=== PATIENT | female | born 1945 | race Caucasian/White ===

== ENCOUNTER 2016-11-07 00:59 | Emergency (ER) | payer MEDICARE ==
--- NOTE | 2016-11-07 01:25 | ED.PDOC ---
History of Present Illness - General Chief Complaint: Neuro Symptoms/Deficits Stated Complaint: weakness left upper extremity and both lower extremity Time Seen by Provider: 11/07/16 01:20 Source: patient, RN notes reviewed, Vital Signs reviewed, EMS notes reviewed Exam Limitations: no limitations - History of Present Illness Initial Comments: Patient stated that both upper extremities felt numb and weak left more than the right as well as both lower extremities called up her HHN and advised to come to er Timing/Duration: 24 hours Severity: moderate Improving Factors: nothing Worsening Factors: nothing Associated Symptoms: numbness in legs/feet, tingling in legs/feet, trouble walking Allergies/Adverse Reactions: Allergies Iodine Allergy (Verified 06/07/16 19:07) Levofloxacin [From Levaquin] Allergy (Verified 06/07/16 19:07) Sulfa Drugs Allergy (Verified 06/07/16 19:07) plastic tape Allergy (Uncoded 01/22/16 23:02) Home Medications: Ambulatory Orders Albuterol Inhaler [Ventolin Hfa Inhaler] 2 puff INH Q8H PRN #1 inh 11/10/15 Allopurinol [Zyloprim] 300 mg PO DAILY 11/10/15 Cyclobenzaprine HCl 10 mg PO DAILY 11/10/15 DULoxetine HCL [Cymbalta] 30 mg PO DAILY 11/10/15 Furosemide [Lasix Tab] 40 mg PO DAILY 11/10/15 Gabapentin 300 mg PO TID 11/10/15 Glimepiride 4 mg PO DAILY 11/10/15 Isosorbide Mononitrate [Isosorbide Mononitrate ER] 60 mg PO DAILY 11/10/15 Meclizine HCl 25 mg PO BID 11/10/15 Meloxicam [Mobic] 15 mg PO DAILY 11/10/15 Memantine HCl [Namenda Xr] 28 mg PO DAILY 11/10/15 Metoclopramide HCl [Reglan] 5 mg PO AC 11/10/15 Metoprolol Tartrate 50 mg PO DAILY 11/10/15 Potassium Chloride [Potassium Chloride ER] 10 meq PO DAILY 11/10/15 Promethazine Tab [Phenergan Tablet] 25 mg PO Q6HRS PRN 11/10/15 Tramadol HCl 50 mg PO Q6HRS PRN 11/10/15 Vitamin D2 50,000 unit PO WKLY 11/10/15 Review of Systems - Review of Systems Constitutional: States: no symptoms reported EENTM: States: blurred vision - history of thinning cornea bilateral but vision better Past Medical History (General) - Patient Medical History Hx Seizures: No Hx Stroke: Yes Hx Dementia: No Hx Asthma: No Hx of COPD: No - has sleep Apnea Hx Cardiac Disorders: Yes Hx Congestive Heart Failure: Yes Hx Pacemaker: No Hx Hypertension: Yes Hx Thyroid Disease: No Hx Diabetes: Yes Hx Gastroesophageal Reflux: No Hx Renal Disease: No Hx Cancer: No Hx of HIV: No Hx Hepatitis C: No Hx MRSA: No Hx Other PMH: No - fibromyalgia - Vaccination History Hx Tetanus, Diphtheria Vaccination: No Hx Influenza Vaccination: No Hx Pneumococcal Vaccination: Yes - Social History Hx Tobacco Use: No Hx Chewing Tobacco Use: No Hx Alcohol Use: No Hx Substance Use: No Hx Substance Use Treatment: No Hx Depression: No Hx Physical Abuse: No Hx Emotional Abuse: No - Activities of Daily Living Patient Lives Alone: Yes - at home Grooming Ability: Independent - Female History Patient is a Female of Child Bearing Age (10 -59 yrs old): No Patient : No Family Medical History - Family History Mother Family History: No Known Living Status: Hx Family Asthma: No Hx Family Hypertension: Yes Hx Family Stroke: Yes Hx Cardiac Disease: Yes Hx Family Cancer: Yes - breast,kidney Physical Exam - Physical Exam General Appearance: Alert, Anxious, No apparent distress Eye Exam: bilateral normal - with glasses ENT Exam: normal ENT inspection, hearing grossly normal, TMs normal Neck: non-tender, full range of motion, supple Respiratory: chest non-tender, lungs clear, normal breath sounds, no respiratory distress Cardiovascular/Chest: normal peripheral pulses, regular rate, rhythm, no edema, no gallop, no JVD, no murmur Peripheral Pulses: radial,right: 2+, radial,left: 2+ Back Exam: normal inspection, no CVA tenderness 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, 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 Exam: normal hearing, normal speech, PERRL, other - GCS-15 Coordination/Gait: ABN nose to finger (L) Motor/Sensory: no motor deficit, no sensory deficit, no pronator drift, negative Babinski's sign Skin Exam: normal color, warm/dry Progress - Results/Orders Results/Orders: 11/07/16 01:27 URINALYSIS Stat 11/07/16 01:30 EKG STAT 11/07/16 02:00 URINE DRUG SCREEN, 7 ASSAY Stat Laboratory Results WBC 11.5 K/mm3 (4.8-10.8) H 11/07/16 01:40 RBC 5.31 M/mm3 (4.20-5.40) 11/07/16 01:40 Hgb 15.4 gm/dL (12.0-16.0) 11/07/16 01:40 Hct 47.1 % (36.0-47.0) H 11/07/16 01:40 MCV 88.6 fl (81.0-99.0) 11/07/16 01:40 MCH 29.0 pg (27.0-31.0) 11/07/16 01:40 MCHC 32.8 g/dL (33.0-37.0) L 11/07/16 01:40 RDW 14.0 % (11.5-14.5) 11/07/16 01:40 Plt Count 151 K/mm3 (130-400) 11/07/16 01:40 MPV 9.0 fl (7.40-10.4) 11/07/16 01:40 Absolute Neuts (auto) 7.50 K/uL (1.8-6.8) H 11/07/16 01:40 Absolute Lymphs (auto) 2.70 K/uL (1.0-3.4) 11/07/16 01:40 Absolute Monos (auto) 0.70 K/uL (0.2-0.8) 11/07/16 01:40 Absolute Eos (auto) 0.40 K/uL (0.0-0.4) 11/07/16 01:40 Absolute Basos (auto) 0.10 K/uL (0.0-0.1) 11/07/16 01:40 Neutrophils % 65.2 % (42.0-78.0) 11/07/16 01:40 Lymphocytes % 23.8 % (20.0-50.0) 11/07/16 01:40 Monocytes % 6.4 % (2.0-9.0) 11/07/16 01:40 Eosinophils % 3.7 % (1.0-5.0) 11/07/16 01:40 Basophils % 0.9 % (0.0-2.0) 11/07/16 01:40 Sodium 136 mmol/L (135-145) 11/07/16 01:40 Potassium 3.7 mmol/L (3.6-5.0) 11/07/16 01:40 Chloride 99 mmol/L (101-111) L 11/07/16 01:40 Carbon Dioxide 27 mmol/L (21-31) 11/07/16 01:40 Anion Gap 13.7 (12-18) 11/07/16 01:40 BUN 18 mg/dL (7-18) 11/07/16 01:40 Creatinine 0.88 mg/dL (0.6-1.3) 11/07/16 01:40 BUN/Creatinine Ratio 20.5 (10-20) H 11/07/16 01:40 Random Glucose 287 mg/dL (70-105) H 11/07/16 01:40 Serum Osmolality 284.3 mOsm/L (275-295) 11/07/16 01:40 Calcium 9.0 mg/dL (8.4-10.2) 11/07/16 01:40 Total Bilirubin 0.7 mg/dL (0.2-1.0) 11/07/16 01:40 AST 41 IU/L (10-42) 11/07/16 01:40 ALT 40 IU/L (10-60) 11/07/16 01:40 Alkaline Phosphatase 95 IU/L (42-121) 11/07/16 01:40 B-Natriuretic Peptide 16.3 pg/ml (0-100) 11/07/16 01:40 Serum Total Protein 7.7 gm/dL (6.4-8.2) 11/07/16 01:40 Albumin 3.8 g/dl (3.2-5.5) 11/07/16 01:40 Globulin 3.9 gm/dL (2.3-3.5) H 11/07/16 01:40 Albumin/Globulin Ratio 1.0 (1.1-1.9) L 11/07/16 01:40 TSH 4.84 uIU/mL (0.34-5.60) 11/07/16 01:40 - EKG/XRAY/CT EKG: nonspecific ST T wave Chg XRAY: chest - stable chest Stroke Information - Onset of Symptoms Symptoms of Stroke: Weakness of limb, Numbness Stroke Onset of Symptoms Date: 11/06/16 Stroke Onset of Symptoms Time: 08:00 - Contraindications t-PA Contraindication: Drug Tx Not Indicated - more than 4 hours Departure - Departure Clinical Impression: CVA, old, cognitive deficits TIA (transient ischemic attack) Qualifiers: Transient cerebral ischemia type: unspecified Qualifier Code: (G45.9) Transient cerebral ischemic attack, unspecified Time of Disposition: 03:33 - D/W neurologist Disposition: Transfer to Hospital Condition: Good Home Medications: Ambulatory Orders Albuterol Inhaler [Ventolin Hfa Inhaler] 2 puff INH Q8H PRN #1 inh 11/10/15 Allopurinol [Zyloprim] 300 mg PO DAILY 11/10/15 Cyclobenzaprine HCl 10 mg PO DAILY 11/10/15 DULoxetine HCL [Cymbalta] 30 mg PO DAILY 11/10/15 Furosemide [Lasix Tab] 40 mg PO DAILY 11/10/15 Gabapentin 300 mg PO TID 11/10/15 Glimepiride 4 mg PO DAILY 11/10/15 Isosorbide Mononitrate [Isosorbide Mononitrate ER] 60 mg PO DAILY 11/10/15 Meclizine HCl 25 mg PO BID 11/10/15 Meloxicam [Mobic] 15 mg PO DAILY 11/10/15 Memantine HCl [Namenda Xr] 28 mg PO DAILY 11/10/15 Metoclopramide HCl [Reglan] 5 mg PO AC 11/10/15 Metoprolol Tartrate 50 mg PO DAILY 11/10/15 Potassium Chloride [Potassium Chloride ER] 10 meq PO DAILY 11/10/15 Promethazine Tab [Phenergan Tablet] 25 mg PO Q6HRS PRN 11/10/15 Tramadol HCl 50 mg PO Q6HRS PRN 11/10/15 Vitamin D2 50,000 unit PO WKLY 11/10/15 Additional Instructions: [facility]
--- NOTE | 2016-11-07 02:18 | CT ---
EXAM DESCRIPTION: CT HEAD WITHOUT IV CONTRAST 11/07/2016 2:08 AM CLINICAL HISTORY: 71 y/o , F, weakness. COMPARISON: CT head without contrast September 25, 2016 TECHNIQUE: Volumetric CT acquisition was performed through the brain. Images in the axial plane were presented for interpretation. Coronal and sagittal reconstruction images were presented for interpretation. FINDINGS: The soft tissue structures of the face and scalp are normal. The globes remain intact. The soft tissues of the orbital fossae are normal. The paranasal sinuses are grossly clear. Limited evaluation of the facial bones demonstrate no gross abnormalities. The calvarium remains intact. There is no evidence of acute intracranial hemorrhage, midline shift, or mass effect. The ventricles are age appropriate in size. The posterior fossa structures are within normal limits. There is a stable old right frontal infarct measuring up to 1.5 cm in diameter. There is a stable old right MRI CT TECH distribution infarct best seen on axial image 17. Specifically, there is no CT evidence of acute infarct, though CT can be insensitive for the detection of acute ischemia. IMPRESSION: 1. No acute intracranial process. 2. Stable old right frontal and right MRI CT TECH distribution infarcts. Electronically signed by: Connie Foote MD 11/07/2016 02:16
--- NOTE | 2016-11-07 02:18 | RAD ---
EXAM DESCRIPTION: XR CHEST 1 VIEW 11/07/2016 2:08 AM CLINICAL HISTORY: 71 y/o , F, weak COMPARISON: Portable AP view of the chest November 10, 2015 FINDINGS: The lungs are clear without focal consolidation or pleural effusion. The heart is normal in size. The mediastinal contours are normal in appearance. The osseous structures are age appropriate. The upper abdomen is grossly normal. IMPRESSION: No acute cardiopulmonary disease (stable appearing chest). Electronically signed by: Connie Foote MD 11/07/2016 02:17
[2016-11-07 03:40] VITALS: TEMP 98.4
[2016-11-07 03:41] VITALS: BP 113/71; O2SAT 95
== END 2016-11-07 04:18 | disposition short-term general hospital (02) ==
LOC: ER 00:59
DX: G45.9 Transient cerebral ischemic attack, unspecified (principal); Z88.2 Allergy status to sulfonamides; Z88.3 Allergy status to other anti-infective agents; Z88.8 Allergy status to other drugs, medicaments and biological substances; Z91.048 Other nonmedicinal substance allergy status; Z79.899 Other long term (current) drug therapy; Z86.73 Personal history of transient ischemic attack (TIA), and cerebral infarction without residual deficits; Z80.3 Family history of malignant neoplasm of breast; Z82.3 Family history of stroke
CPT/HCPCS: 70450; 71010; 80053; 81001; 83880; 84443; 85025; 93005; G0479

== ENCOUNTER → 2017-01-03 | Outpatient (CLI) | payer MEDICARE ==
--- NOTE | 2017-01-03 10:48 | CT ---
EXAM DESCRIPTION: Abdoment/Pelvis w/o Contrast CLINICAL HISTORY: ABD PAIN COMPARISON: None Available TECHNIQUE: CT of the abdomen and Pelvis was performed without IV contrast. FINDINGS: The lung bases are unremarkable. There is no pneumoperitoneum, ascites or adenopathy. No abdominal aortic aneurysm. The gallbladder is surgically absent. There is no gastric wall thickening. There is a poorly defined area of decreased attenuation anteriorly in the liver without adjacent edema or fluid. This may present focal fatty location. The liver is otherwise unremarkable for noncontrast technique. The spleen, pancreas, adrenals and kidneys are unremarkable. No dilated small bowel loops. No bladder wall thickening. The uterus and ovaries are surgically absent. No colonic wall thickening. The appendix is not definitely identified, but there are no secondary signs of appendicitis. There is a tiny fat-containing umbilical hernia without complicating features. No additional hernia or other abdominal wall lesion is identified. No suspicious bone lesion. IMPRESSION: Tiny uncomplicated fat-containing umbilical hernia, but no additional abnormality in the abdomen or pelvis to explain abdominal pain. Small irregular area of decreased attenuation anteriorly in the liver probably representing focal fatty infiltration, doubtful clinical significance. 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
== END | disposition home or self-care (01) ==
LOC: EDSTATUS 08:00 → CT 08:03 → GOCC 08:03 → LAB.O 08:03
PROVIDERS: ATTEND Family Medicine
DX: R10.84 Generalized abdominal pain (principal)

== ENCOUNTER → 2017-03-13 | Outpatient (CLI) | payer MEDICARE | LOC: GMAL 15:01 | PROVIDERS: ATTEND Family Medicine | DX: E03.9 Hypothyroidism, unspecified (principal) ==

== ENCOUNTER → 2017-03-15 | Outpatient (CLI) | payer MEDICARE ==
--- NOTE | 2017-03-15 14:15 | US ---
History: Left bloody nipple discharge. DATE OF SERVICE: 03/15/2017 Services provided: Bilateral full field digital diagnostic mammography. CAD, the images were reviewed with R2 computer aided detection. Directed left breast physical exam. Directed left breast sonography. FINDINGS: Routine views are obtained. True lateral films were also performed and compared with 2015 exam. Scattered glandular parenchymal pattern with minimal nodularity is stable. No dominant mass, architectural distortion or clustered microcalcification. No palpable abnormality is noted on physical exam. No nipple discharge could be elicited on today's evaluation. Sonography of the retroareolar left breast confirms ductal ectasia with no sonographic abnormality. IMPRESSION: Benign exam. No mammographic evidence for malignancy. No sonographic abnormality on the left. Nipple discharge could not be demonstrated on today's evaluation. Recommendation: Routine screening mammography. Should the nipple discharge recur the patient is asked to return for further evaluation. BIRAD CATEGORY: 2 BENIGN Electronically signed by: Dalia Palencia MD 03/15/2017 2:15 PM CDT
== END | disposition home or self-care (01) ==
LOC: MAMMO 12:19
PROVIDERS: ATTEND Nurse Practitioner Family
DX: N64.52 Nipple discharge (principal)

== ENCOUNTER 2017-04-18 23:57 | Emergency (ER) | payer MEDICARE ==
[2017-04-19 00:17] VITALS: TEMP 98.4
--- NOTE | 2017-04-19 01:12 | CT ---
EXAM: CT cervical spine without contrast. INDICATION: Trauma. Neck pain. TECHNIQUE: Contiguous axial CT images of the cervical spine. Intravenous contrast: Absent. Reformats: MPRs created and utilized. DLP 290 mGy-cm. This exam was performed according to our departmental dose-optimization program, which includes automated exposure control, adjustment of the mA and/or kV according to patient size and/or use of iterative reconstruction technique. COMPARISON: None. FINDINGS: Alignment: Preserved. Fracture: No acute fracture or subluxation. Odontoid process: Intact. Prevertebral soft tissues: No edema. Spondylosis: None. Other: None. IMPRESSION: 1. No CT evidence of acute osseous injury of the cervical spine. Electronically signed by: Ernie Lozano MD 04/19/2017 1:12 AM CDT Workstation: [id number]
--- NOTE | 2017-04-19 01:14 | CT ---
EXAM: CT head without contrast. INDICATION: Fall. TECHNIQUE: Contiguous axial CT images of the brain. Intravenous contrast: Absent. DLP 773 mGy-cm. This exam was performed according to our departmental dose-optimization program, which includes automated exposure control, adjustment of the mA and/or kV according to patient size and/or use of iterative reconstruction technique. COMPARISON: 11/07/2016. FINDINGS: Subcutaneous: Unremarkable. No acute intracranial hemorrhage. There is diffuse cerebral atrophy with moderate periventricular deep white matter chronic microvascular changes. 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 No midline shift. No mass effect. Ventricles: No hydrocephalus. Lorenzo-white differentiation preserved. Paranasal sinuses/mastoid air cells: Visualized portions are aerated. Bones/orbits: Visualized portions are unremarkable. IMPRESSION: 1. No CT evidence of acute intracranial hemorrhage. Electronically signed by: Ernie Lozano MD 04/19/2017 1:14 AM CDT Workstation: [id number]
[2017-04-19] MEDS ORDERED: SODIUM CHLORIDE 0.9% 1000ML 1,000 ML IVS ONE (01:35)
--- NOTE | 2017-04-19 01:40 | RAD ---
EXAM: Three view(s) of the lumbar spine. INDICATION: Pain, lumbar spine. COMPARISON: None. FINDINGS: Alignment: Intact. Fracture: No acute compression fracture or subluxation. IMPRESSION: 1. No acute compression fracture. Electronically signed by: Ernie Lozano MD 04/19/2017 1:38 AM CDT Workstation: [id number]
--- NOTE | 2017-04-19 02:25 | ED.PDOC ---
History of Present Illness - General Chief Complaint: Trauma Stated Complaint: FALL Time Seen by Provider: 04/19/17 00:02 Source: patient Exam Limitations: no limitations - History of Present Illness Initial Comments: the patient is a 71-year-old female presenting to the emergency room secondary tosyncopal episode with resulting trauma. The patient got up out of bed to go urinate. When she stood up she passed out and fell forward and hit her forehead on the nightstand. She thinks she was only out for less than a minute. No other people live in her house. She sustained a U-shaped laceration just lateral to her left eye that is approximately 1 inch on each arm. She sustained a three-quarter inch laceration just midline and superior to her nose on her forehead. Estimated blood loss approximately 20 cc from these 2 lesions. She does additionally have hematomas between these cuts and to the right upper eyebrow. the patient has not had syncopal issues before. She does have some mildly low back pain. The patient does have multiple sedative type medications and she also takes diuretics. No chest pain or shortness of breath. No palpitations.the patient was feelingfine earlier in the day. There was no prodrome of symptoms. Timing/Duration: momentarily Severity: moderate Improving Factors: nothing Worsening Factors: movement Associated Symptoms: malaise Allergies/Adverse Reactions: Allergies Iodine Allergy (Verified 06/07/16 19:07) Levofloxacin [From Levaquin] Allergy (Verified 06/07/16 19:07) Sulfa Drugs Allergy (Verified 06/07/16 19:07) plastic tape Allergy (Uncoded 01/22/16 23:02) Home Medications: Ambulatory Orders Albuterol Inhaler [Ventolin Hfa Inhaler] 2 puff INH Q8H PRN #1 inh 11/10/15 Allopurinol [Zyloprim] 300 mg PO DAILY 11/10/15 Cyclobenzaprine HCl 10 mg PO DAILY 11/10/15 DULoxetine HCL [Cymbalta] 30 mg PO DAILY 11/10/15 Furosemide Tab [Lasix Tab] 40 mg PO DAILY 11/10/15 Gabapentin 300 mg PO TID 11/10/15 Glimepiride 4 mg PO DAILY 11/10/15 Isosorbide Mononitrate [Isosorbide Mononitrate ER] 60 mg PO DAILY 11/10/15 Meclizine HCl 25 mg PO BID 11/10/15 Meloxicam [Mobic] 15 mg PO DAILY 11/10/15 Memantine HCl [Namenda Xr] 28 mg PO DAILY 11/10/15 Metoclopramide Tab [Reglan] 5 mg PO AC 11/10/15 Metoprolol Tartrate 50 mg PO DAILY 11/10/15 Potassium Chloride [Potassium Chloride ER] 10 meq PO DAILY 11/10/15 Promethazine Tab [Phenergan Tablet] 25 mg PO Q6HRS PRN 11/10/15 Tramadol HCl 50 mg PO Q6HRS PRN 11/10/15 Vitamin D2 50,000 unit PO WKLY 11/10/15 Review of Systems - Review of Systems Constitutional: States: malaise EENTM: States: no symptoms reported Respiratory: States: no symptoms reported Cardiology: States: no symptoms reported Gastrointestinal/Abdominal: States: no symptoms reported Genitourinary: States: no symptoms reported Musculoskeletal: States: back pain Skin: States: see HPI Neurological: States: headache - from a fall Endocrine: States: no symptoms reported All other Systems: No Change from Baseline Past Medical History (General) - Patient Medical History Hx Seizures: No Hx Stroke: Yes Hx Dementia: No Hx Asthma: No Hx of COPD: No - has sleep Apnea Hx Cardiac Disorders: Yes Hx Congestive Heart Failure: Yes Hx Pacemaker: No Hx Hypertension: Yes Hx Thyroid Disease: No Hx Diabetes: Yes Hx Gastroesophageal Reflux: No Hx Renal Disease: No Hx Cancer: No Hx of HIV: No Hx Hepatitis C: No Hx MRSA: No Surgical History: cholecystectomy, Hysterectomy - Vaccination History Hx Tetanus, Diphtheria Vaccination: Yes Hx Influenza Vaccination: Yes Hx Pneumococcal Vaccination: Yes Immunizations Up to Date: Yes - Social History Hx Tobacco Use: No Hx Chewing Tobacco Use: No Hx Alcohol Use: No Hx Substance Use: No Hx Substance Use Treatment: No Hx Depression: No Hx Physical Abuse: No Hx Emotional Abuse: No - Female History Patient is a Female of Child Bearing Age (10 -59 yrs old): No Patient : No Family Medical History - Family History Mother Family History: No Known Living Status: Hx Family Asthma: No Hx Family Hypertension: Yes Hx Family Stroke: Yes Hx Cardiac Disease: Yes Hx Family Cancer: Yes - breast,kidney Physical Exam - Physical Exam General Appearance: Alert, No apparent distress Eye Exam: bilateral normal Ears, Nose, Throat: hearing grossly normal, normal ENT inspection, normal pharynx - poor dentition Neck: non-tender, full range of motion, supple Respiratory: chest non-tender, lungs clear, normal breath sounds, no respiratory distress, no accessory muscle use Cardiovascular/Chest: normal peripheral pulses, regular rate, rhythm, no edema Peripheral Pulses: radial,right: 2+, radial,left: 2+, dorsalis pedis,right: 2+, dorsalis pedis,left: 2+ Gastrointestinal/Abdominal: normal bowel sounds, non tender, soft Rectal Exam: deferred Back Exam: no vertebral tenderness, CVA tenderness (R) - mild to the lowerlumbar area bilaterally Extremity: normal range of motion, non-tender, normal inspection, normal capillary refill Neurologic: cleaners II-XII nml as tested, alert, normal mood/affect, oriented x 3 Skin Exam: normal color - with the exception of the lacerations as above. No obvious underlyingskull fractures. Comments: Vital Signs - 24 hr 04/19/17 04/19/17 04/19/17 00:11 01:32 01:33 Temperature 98.4 F Pulse Rate [ 78 69 84 MONITOR] Respiratory 20 Rate Blood Pressure 107/72 120/61 88/56 [Right Arm] O2 Sat by Pulse 94 L Oximetry tilt vital signs show a heart rate going from 69-84. Systolic blood pressure drops from 120 to 88. Progress - Progress Progress: 04/19/17 02:29 the patient is a 71-year-old female presenting due to syncopal episode resulting in a fall that gave her multiple facial lacerations. The syncope appears to be due to orthostasis likely compounded by her diuretic and sedative type medications. She needs to have these medications reviewed with her primary care doctor to prevent further falls. She did receive a fluid bolus to help reduce orthostasis. She does need to stand up carefully and wait 30 seconds before taking off walking to prevent further falls. Sutures to the face need to be removed in 5-7 days. No evidence of significant arrhythmia was noted here today. If near syncopal or syncopal episodes recur, then additional workup including Holter monitor and carotid ultrasound may be worthwhile. ER warnings were given. If low back pain persists or worsens then a repeat x-ray may be worth while for any occult fracture. she should follow-up with her primary care doctor later this week or early next week for reevaluation. She should plan on giving a urinalysis at that time. monitor for any evidence of infection surrounding the lacerations risk and benefits of facial laceration repair were explained and patient agrees to proceed. Total estimated blood loss from wounds probably less than 20 cc. Wounds were irrigated with sterile saline to approximately 250 cc. Blood percent Xylocaine was used for local anesthetic and 2 cc. 6 simple sutures of 4 -0 Ethilon were used for reapproximation of the U-shaped lesion. Dermabond was used for reapproximation of the linear lesion just above the nose. The patient tolerated the procedure well. - Results/Orders Results/Orders: 04/19/17 00:03 Telemetry .CONTINUOUS Vital Signs-Tilt PRN UA [URINALYSIS] Stat pending at this time 04/19/17 01:35 Sodium Chloride 0.9% 1000ML [Ns 1000 ml] 1,000 ml IVS ONCE Laboratory Results - last 24 hr 04/19/17 04/19/17 04/19/17 00:40 00:40 00:40 WBC 10.1 RBC 4.94 Hgb 14.5 Hct 44.4 MCV 89.9 MCH 29.4 MCHC 32.7 L RDW 14.0 Plt Count 200 MPV 9.3 Absolute Neuts (auto) 6.40 Absolute Lymphs (auto) 2.90 Absolute Monos (auto) 0.60 Absolute Eos (auto) 0.20 Absolute Basos (auto) 0.00 Neutrophils % 63.5 Lymphocytes % 28.3 Monocytes % 5.4 Eosinophils % 2.3 Basophils % 0.5 PT 12.0 INR 1.060 PTT (SP) 28.4 Sodium 140 Potassium 4.8 Chloride 106 Carbon Dioxide 25 Anion Gap 13.8 BUN 20 H Creatinine 0.99 BUN/Creatinine Ratio 20.2 H Random Glucose 255 H Serum Osmolality 290.7 Calcium 9.2 Magnesium 1.6 L Total Bilirubin 0.5 AST 31 ALT 31 Alkaline Phosphatase 87 Creatine Kinase 36 CK-MB (CK-2) 1.2 CK-MB (CK-2) % Not Reportable Troponin I < 0.02 B-Natriuretic Peptide 10.0 Serum Total Protein 7.1 Albumin 3.4 Globulin 3.7 H Albumin/Globulin Ratio 0.9 L x-ray of the lumbar spine, CT scan of the cervical spine and CT scan of the head showed no acute trauma other than the lacerations as described above No other acute pathology. - EKG/XRAY/CT CT Ordered: Yes Departure - Departure Clinical Impression: Orthostatic syncope Facial laceration Qualifiers: Encounter type: initial encounter Qualified Code(s): S01.81XA - Laceration without foreign body of other part of head, initial encounter Disposition: Discharge to Home or Self Care Condition: Fair Departure Forms: ED Discharge - Pt. Copy, Patient Portal Self Enrollment Instructions: DI for Orthostatic Hypotension, DI for Laceration Repair -- Simple Diet: diabetic diet Activity: increase activity as tolerated Referrals: Ronald Holloway III, MD [Primary Care Provider] - 1-2 Weeks Home Medications: Ambulatory Orders Albuterol Inhaler [Ventolin Hfa Inhaler] 2 puff INH Q8H PRN #1 inh 11/10/15 Allopurinol [Zyloprim] 300 mg PO DAILY 11/10/15 Cyclobenzaprine HCl 10 mg PO DAILY 11/10/15 DULoxetine HCL [Cymbalta] 30 mg PO DAILY 11/10/15 Furosemide Tab [Lasix Tab] 40 mg PO DAILY 11/10/15 Gabapentin 300 mg PO TID 11/10/15 Glimepiride 4 mg PO DAILY 11/10/15 Isosorbide Mononitrate [Isosorbide Mononitrate ER] 60 mg PO DAILY 11/10/15 Meclizine HCl 25 mg PO BID 11/10/15 Meloxicam [Mobic] 15 mg PO DAILY 11/10/15 Memantine HCl [Namenda Xr] 28 mg PO DAILY 11/10/15 Metoclopramide Tab [Reglan] 5 mg PO AC 11/10/15 Metoprolol Tartrate 50 mg PO DAILY 11/10/15 Potassium Chloride [Potassium Chloride ER] 10 meq PO DAILY 11/10/15 Promethazine Tab [Phenergan Tablet] 25 mg PO Q6HRS PRN 11/10/15 Tramadol HCl 50 mg PO Q6HRS PRN 11/10/15 Vitamin D2 50,000 unit PO WKLY 11/10/15 Additional Instructions: the patient is a 71-year-old female presenting due to syncopal episode resulting in a fall that gave her multiple facial lacerations. The syncope appears to be due to orthostasis likely compounded by her diuretic and sedative type medications. She needs to have these medications reviewed with her primary care doctor to prevent further falls. She did receive a fluid bolus to help reduce orthostasis. She does need to stand up carefully and wait 30 seconds before taking off walking to prevent further falls. Sutures to the face need to be removed in 5-7 days. No evidence of significant arrhythmia was noted here today. If near syncopal or syncopal episodes recur, then additional workup including Holter monitor and carotid ultrasound may be worthwhile. ER warnings were given. If low back pain persists or worsens then a repeat x-ray may be worth while for any occult fracture. she should follow-up with her primary care doctor later this week or early next week for reevaluation. She should plan on giving a urinalysis at that time. monitor for any evidence of infection surrounding the lacerations
[2017-04-19] MEDS ORDERED: CEPHALEXIN MONOHYDRATE 250 MG CAP PO ONE (02:35)
[2017-04-19 03:47] VITALS: BP 119/69
[2017-04-19 05:05] VITALS: O2SAT 97
== END 2017-04-19 04:50 | disposition home or self-care (01) ==
LOC: ER 23:57
DX: S01.81XA Laceration without foreign body of other part of head, initial encounter (principal); M54.5 Low back pain; R55 Syncope and collapse; I11.0 Hypertensive heart disease with heart failure; I50.9 Heart failure, unspecified; E11.9 Type 2 diabetes mellitus without complications; G47.30 Sleep apnea, unspecified; Z79.899 Other long term (current) drug therapy; Z88.2 Allergy status to sulfonamides; Z88.8 Allergy status to other drugs, medicaments and biological substances; Z88.3 Allergy status to other anti-infective agents
CPT/HCPCS: 36415; 70450; 72100; 72125; 80053; 82550; 82553; 83735; 83880; 84484; 85025; 85610; 85730; J7030

== ENCOUNTER → 2017-05-23 | Outpatient (CLI) | payer MEDICARE | LOC: GRHH 10:37 | PROVIDERS: ATTEND Family Medicine | DX: R31.9 Hematuria, unspecified (principal) ==

== ENCOUNTER → 2017-06-14 | Outpatient (CLI) | payer MEDICARE | END | disposition home or self-care (01) | LOC: GMAL 09:39 | PROVIDERS: ATTEND Family Medicine | DX: E03.9 Hypothyroidism, unspecified (principal); I10 Essential (primary) hypertension; E78.5 Hyperlipidemia, unspecified; E11.9 Type 2 diabetes mellitus without complications ==

== ENCOUNTER 2017-06-25 04:01 | Emergency (ER) | payer MEDICARE ==
[2017-06-25 04:14] VITALS: TEMP 98.9
--- NOTE | 2017-06-25 04:53 | CT ---
EXAM: CT head without contrast. INDICATION: Fall. TECHNIQUE: Contiguous axial CT images of the brain. Intravenous contrast: Absent. DLP 773 mGy-cm. This exam was performed according to our departmental dose-optimization program, which includes automated exposure control, adjustment of the mA and/or kV according to patient size and/or use of iterative reconstruction technique. COMPARISON: 04/19/2017. FINDINGS: Subcutaneous: Unremarkable. No acute intracranial hemorrhage. There is diffuse cerebral atrophy with moderate periventricular and deep matter chronic microvascular changes. 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 No midline shift. No mass effect. Ventricles: No hydrocephalus. Lorenzo-white differentiation preserved. Paranasal sinuses/mastoid air cells: Visualized portions are aerated. Bones/orbits: Visualized portions are unremarkable. IMPRESSION: 1. No CT evidence of acute intracranial hemorrhage. Electronically signed by: Ernie Lozano MD 06/25/2017 4:52 AM CDT Workstation: [employer]
--- NOTE | 2017-06-25 05:05 | ED.PDOC ---
History of Present Illness - General Chief Complaint: Trauma Stated Complaint: fall, generalized body pain, dizzy Time Seen by Provider: 06/25/17 04:57 Source: patient Exam Limitations: no limitations - History of Present Illness Initial Comments: Patient presents to the E.R. after having a fall at home. She lost her balance and struck her head on the wall on the way down. She has had such falls before. She has IDDM and often runs blood sugars in the 500s at home. She treats it with a sliding scale. There was no LOC. She said she simply got light -headed and fell. She has generalized pain complaints and soreness from this fall. No other complaints. Timing/Duration: 1-3 hours Severity: mild Improving Factors: nothing Worsening Factors: nothing Associated Symptoms: denies symptoms Allergies/Adverse Reactions: Allergies Iodine Allergy (Verified 06/25/17 04:14) Levofloxacin [From Levaquin] Allergy (Verified 06/25/17 04:14) Sulfa Drugs Allergy (Verified 06/25/17 04:14) plastic tape Allergy (Uncoded 06/25/17 04:14) Home Medications: Ambulatory Orders Albuterol Inhaler [Ventolin Hfa Inhaler] 2 puff INH Q8H PRN #1 inh 11/10/15 Allopurinol [Zyloprim] 300 mg PO DAILY 11/10/15 Cyclobenzaprine HCl 10 mg PO DAILY 11/10/15 DULoxetine HCL [Cymbalta] 30 mg PO DAILY 11/10/15 Furosemide Tab [Lasix Tab] 40 mg PO DAILY 11/10/15 Gabapentin 300 mg PO TID 11/10/15 Glimepiride 4 mg PO DAILY 11/10/15 Isosorbide Mononitrate [Isosorbide Mononitrate ER] 60 mg PO DAILY 11/10/15 Meclizine HCl 25 mg PO BID 11/10/15 Meloxicam [Mobic] 15 mg PO DAILY 11/10/15 Memantine HCl [Namenda Xr] 28 mg PO DAILY 11/10/15 Metoclopramide Tab [Reglan] 5 mg PO AC 11/10/15 Metoprolol Tartrate 50 mg PO DAILY 11/10/15 Potassium Chloride [Potassium Chloride ER] 10 meq PO DAILY 11/10/15 Promethazine Tab [Phenergan Tablet] 25 mg PO Q6HRS PRN 11/10/15 Tramadol HCl 50 mg PO Q6HRS PRN 11/10/15 Vitamin D2 50,000 unit PO WKLY 11/10/15 Insulin Aspart [Novolog Flexpen] 06/25/17 Insulin Detemir [Levemir Pen] 06/25/17 Metformin HCl 06/25/17 Review of Systems - Review of Systems Constitutional: States: no symptoms reported EENTM: States: no symptoms reported Respiratory: States: no symptoms reported Cardiology: States: no symptoms reported Gastrointestinal/Abdominal: States: no symptoms reported Genitourinary: States: no symptoms reported Musculoskeletal: States: see HPI Skin: States: no symptoms reported Neurological: States: see HPI Endocrine: States: see HPI Hematologic/Lymphatic: States: no symptoms reported Past Medical History (General) - Patient Medical History Hx Seizures: No Hx Stroke: Yes Hx Dementia: No Hx Asthma: No Hx of COPD: No - has sleep Apnea Hx Cardiac Disorders: Yes Hx Congestive Heart Failure: Yes Hx Pacemaker: No Hx Hypertension: Yes Hx Thyroid Disease: Yes Hx Diabetes: Yes Hx Gastroesophageal Reflux: Yes Hx Renal Disease: No Hx Cancer: No Hx of HIV: No Hx Hepatitis C: No Hx MRSA: No Surgical History: appendectomy, cholecystectomy, Hysterectomy - Vaccination History Hx Tetanus, Diphtheria Vaccination: No Hx Influenza Vaccination: No Hx Pneumococcal Vaccination: Yes Immunizations Up to Date: No - Social History Hx Tobacco Use: No Hx Chewing Tobacco Use: No Hx Alcohol Use: No Hx Substance Use: No Hx Substance Use Treatment: No Hx Depression: No Feels Threatened In Home Enviroment: No Feels Threatened In a Relationship: No Hx Physical Abuse: No Hx Emotional Abuse: No - Female History Patient : No Family Medical History - Family History Mother Family History: No Known Living Status: Hx Family Asthma: No Hx Family Hypertension: Yes Hx Family Stroke: Yes Hx Cardiac Disease: Yes Hx Family Cancer: Yes - breast,kidney Physical Exam - Physical Exam General Appearance: Alert Eye Exam: bilateral normal Ears, Nose, Throat: normal ENT inspection Neck: non-tender, full range of motion, supple Respiratory: lungs clear, normal breath sounds Cardiovascular/Chest: normal peripheral pulses, regular rate, rhythm Gastrointestinal/Abdominal: normal bowel sounds, non tender, soft Extremity: normal range of motion 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 Blood sugar was 342. This is very common for this patient. I asked her about it and she says it happens when she gets excited, especially after a fall. She already has a plan to treat it with her sliding scale insulin. Laboratory Tests 06/25/17 04:30 POC Glucose 342 H - EKG/XRAY/CT CT Ordered: Yes Departure - Departure Clinical Impression: Fall Disposition: Discharge to Home or Self Care Condition: Good Departure Forms: ED Discharge - Pt. Copy, Patient Portal Self Enrollment Diet: diabetic diet Activity: increase activity as tolerated Referrals: Ronald Holloway III, MD [Primary Care Provider] - 1-2 Weeks Home Medications: Ambulatory Orders Albuterol Inhaler [Ventolin Hfa Inhaler] 2 puff INH Q8H PRN #1 inh 11/10/15 Allopurinol [Zyloprim] 300 mg PO DAILY 11/10/15 Cyclobenzaprine HCl 10 mg PO DAILY 11/10/15 DULoxetine HCL [Cymbalta] 30 mg PO DAILY 11/10/15 Furosemide Tab [Lasix Tab] 40 mg PO DAILY 11/10/15 Gabapentin 300 mg PO TID 11/10/15 Glimepiride 4 mg PO DAILY 11/10/15 Isosorbide Mononitrate [Isosorbide Mononitrate ER] 60 mg PO DAILY 11/10/15 Meclizine HCl 25 mg PO BID 11/10/15 Meloxicam [Mobic] 15 mg PO DAILY 11/10/15 Memantine HCl [Namenda Xr] 28 mg PO DAILY 11/10/15 Metoclopramide Tab [Reglan] 5 mg PO AC 11/10/15 Metoprolol Tartrate 50 mg PO DAILY 11/10/15 Potassium Chloride [Potassium Chloride ER] 10 meq PO DAILY 11/10/15 Promethazine Tab [Phenergan Tablet] 25 mg PO Q6HRS PRN 11/10/15 Tramadol HCl 50 mg PO Q6HRS PRN 11/10/15 Vitamin D2 50,000 unit PO WKLY 11/10/15 Insulin Aspart [Novolog Flexpen] 06/25/17 Insulin Detemir [Levemir Pen] 06/25/17 Metformin HCl 06/25/17 Additional Instructions: Drink a lot of water. Use your insulin sliding scale as instructed. Follow up with your regular doctor this week for possible insulin changes.
[2017-06-25 05:16] VITALS: BP 156/69; O2SAT 95
== END 2017-06-25 06:54 | disposition home or self-care (01) ==
LOC: ER 04:01
DX: Z04.3 Encounter for examination and observation following other accident (principal); I11.0 Hypertensive heart disease with heart failure; I50.9 Heart failure, unspecified; E11.9 Type 2 diabetes mellitus without complications; E07.9 Disorder of thyroid, unspecified; G47.30 Sleep apnea, unspecified; K21.9 Gastro-esophageal reflux disease without esophagitis; Z86.73 Personal history of transient ischemic attack (TIA), and cerebral infarction without residual deficits; Z88.8 Allergy status to other drugs, medicaments and biological substances; Z88.2 Allergy status to sulfonamides; Z79.4 Long term (current) use of insulin; Z79.899 Other long term (current) drug therapy; W18.39XA Other fall on same level, initial encounter; Y92.009 Unspecified place in unspecified non-institutional (private) residence as the place of occurrence of the external cause

== ENCOUNTER 2017-06-27 18:43 | Emergency (ER) | payer MEDICARE ==
[2017-06-27] MEDS ORDERED: CHLORHEXIDINE GLUCONATE 4 % 15 ML UD TOP ONE (19:42)
--- NOTE | 2017-06-27 19:55 | ED.PDOC ---
History of Present Illness - General Chief Complaint: General Stated Complaint: Lethargic Time Seen by Provider: 06/27/17 19:04 Source: patient, RN notes reviewed Exam Limitations: no limitations - History of Present Illness Initial Comments: Kinjal Villanueva 71 y/o female stated that since this morning she does not feel like doing anything today,no nausea,vomiting ,no fever,no dysuria.She stated fell last night and bruised right side of chest.Head ct-no acute abnormalities noted that was done last night Timing/Duration: 4-6 hours Severity: moderate Improving Factors: nothing Worsening Factors: nothing Associated Symptoms: loss of appetite Allergies/Adverse Reactions: Allergies Iodine Allergy (Verified 06/25/17 04:14) Levofloxacin [From Levaquin] Allergy (Verified 06/25/17 04:14) Sulfa Drugs Allergy (Verified 06/25/17 04:14) plastic tape Allergy (Uncoded 06/25/17 04:14) Home Medications: Ambulatory Orders Albuterol Inhaler [Ventolin Hfa Inhaler] 2 puff INH Q8H PRN #1 inh 11/10/15 Allopurinol [Zyloprim] 300 mg PO DAILY 11/10/15 Cyclobenzaprine HCl 10 mg PO DAILY 11/10/15 DULoxetine HCL [Cymbalta] 30 mg PO DAILY 11/10/15 Furosemide Tab [Lasix Tab] 40 mg PO DAILY 11/10/15 Gabapentin 300 mg PO TID 11/10/15 Glimepiride 4 mg PO DAILY 11/10/15 Isosorbide Mononitrate [Isosorbide Mononitrate ER] 60 mg PO DAILY 11/10/15 Meclizine HCl 25 mg PO BID 11/10/15 Meloxicam [Mobic] 15 mg PO DAILY 11/10/15 Memantine HCl [Namenda Xr] 28 mg PO DAILY 11/10/15 Metoclopramide Tab [Reglan] 5 mg PO AC 11/10/15 Metoprolol Tartrate 50 mg PO DAILY 11/10/15 Potassium Chloride [Potassium Chloride ER] 10 meq PO DAILY 11/10/15 Promethazine Tab [Phenergan Tablet] 25 mg PO Q6HRS PRN 11/10/15 Tramadol HCl 50 mg PO Q6HRS PRN 11/10/15 Vitamin D2 50,000 unit PO WKLY 11/10/15 Insulin Aspart [Novolog Flexpen] 06/25/17 Insulin Detemir [Levemir Pen] 06/25/17 Metformin HCl 06/25/17 Review of Systems - Review of Systems Constitutional: States: weakness EENTM: States: no symptoms reported Respiratory: States: see HPI Cardiology: States: no symptoms reported Gastrointestinal/Abdominal: States: no symptoms reported Genitourinary: States: no symptoms reported Musculoskeletal: States: see HPI Skin: States: no symptoms reported Past Medical History (General) - Patient Medical History Hx Seizures: No Hx Stroke: Yes Hx Dementia: No Hx Asthma: No Hx of COPD: No - has sleep Apnea Hx Cardiac Disorders: Yes Hx Congestive Heart Failure: Yes Hx Pacemaker: No Hx Hypertension: Yes Hx Thyroid Disease: Yes Hx Diabetes: Yes Hx Gastroesophageal Reflux: Yes Hx Renal Disease: No Hx Cancer: No Hx of HIV: No Hx Hepatitis C: No Hx MRSA: No Surgical History: appendectomy, cholecystectomy, Hysterectomy - Vaccination History Hx Tetanus, Diphtheria Vaccination: No Hx Influenza Vaccination: No Hx Pneumococcal Vaccination: Yes Immunizations Up to Date: Yes - Social History Hx Tobacco Use: No Hx Chewing Tobacco Use: No Hx Alcohol Use: No Hx Substance Use: No Hx Substance Use Treatment: No Hx Depression: No Hx Physical Abuse: No Hx Emotional Abuse: No - Activities of Daily Living Grooming Ability: Independent Eating (Feeding) Ability: Independent Toileting Ability: Independent - Female History Patient is a Female of Child Bearing Age (10 -59 yrs old): No Patient : No Family Medical History - Family History Mother Family History: No Known Living Status: Hx Family Asthma: No Hx Family Hypertension: Yes Hx Family Stroke: Yes Hx Cardiac Disease: Yes Hx Family Cancer: Yes - breast,kidney Physical Exam - Physical Exam General Appearance: Alert, Comfortable, No apparent distress, Other - speech fluent Eye Exam: bilateral normal Ears, Nose, Throat: hearing grossly normal, normal ENT inspection, normal pharynx Neck: non-tender, full range of motion, supple Respiratory: lungs clear, normal breath sounds, no respiratory distress, no accessory muscle use, other - tenderness right lower rib cage Cardiovascular/Chest: normal peripheral pulses, regular rate, rhythm, no murmur Peripheral Pulses: radial,right: 1+, radial,left: 1+, dorsalis pedis,right: 1+, dorsalis pedis,left: 1+ Gastrointestinal/Abdominal: normal bowel sounds, non tender, soft, no organomegaly Back Exam: normal inspection, no CVA tenderness, no vertebral tenderness Extremity: normal range of motion, non-tender, no calf tenderness Neurologic: no motor/sensory deficits, alert, normal mood/affect, oriented x 3 Skin Exam: normal color, warm/dry Lymphatic: no adenopathy Progress - Progress Progress: 06/27/17 20:35 Last Vital Signs Temp 97.7 F 06/27/17 18:53 Pulse 60 06/27/17 20:00 Resp 18 06/27/17 20:00 BP 124/75 06/27/17 20:00 Pulse Ox 96 06/27/17 20:00 Laboratory Tests 06/27/17 06/27/17 06/27/17 19:36 19:36 19:36 WBC 9.0 RBC 4.86 Hgb 14.2 Hct 43.0 MCV 88.5 MCH 29.3 MCHC 33.1 RDW 13.5 Plt Count 159 MPV 9.5 Absolute Neuts (auto) 5.40 Absolute Lymphs (auto) 2.60 Absolute Monos (auto) 0.50 Absolute Eos (auto) 0.50 H Absolute Basos (auto) 0.00 Neutrophils % 59.7 Lymphocytes % 28.7 Monocytes % 5.4 Eosinophils % 5.7 H Basophils % 0.5 Sodium 136 Potassium 4.3 Chloride 99 L Carbon Dioxide 26 Anion Gap 15.3 BUN 13 Creatinine 0.83 BUN/Creatinine Ratio 15.7 POC Glucose 389 H Random Glucose 444 H* Serum Osmolality 291.3 Calcium 9.0 Total Bilirubin 0.6 AST 29 ALT 34 Alkaline Phosphatase 108 Troponin I B-Natriuretic Peptide Serum Total Protein 7.2 Albumin 3.7 Globulin 3.5 Albumin/Globulin Ratio 1.1 Urine Color Urine Appearance Urine pH Ur Specific [place] Urine Protein Urine Glucose (UA) Urine Ketones Urine Blood Urine Nitrite Urine Bilirubin Urine Urobilinogen Ur Leukocyte Esterase Urine RBC Urine WBC Ur Epithelial Cells Amorphous Sediment Urine Bacteria 06/27/17 06/27/17 06/27/17 19:36 19:36 19:52 WBC RBC Hgb Hct MCV MCH MCHC RDW Plt Count MPV Absolute Neuts (auto) Absolute Lymphs (auto) Absolute Monos (auto) Absolute Eos (auto) Absolute Basos (auto) Neutrophils % Lymphocytes % Monocytes % Eosinophils % Basophils % Sodium Potassium Chloride Carbon Dioxide Anion Gap BUN Creatinine BUN/Creatinine Ratio POC Glucose Random Glucose Serum Osmolality Calcium Total Bilirubin AST ALT Alkaline Phosphatase Troponin I < 0.02 B-Natriuretic Peptide 24.7 Serum Total Protein Albumin Globulin Albumin/Globulin Ratio Urine Color Yellow Urine Appearance Clear Urine pH 5.0 Ur Specific [place] 1.015 Urine Protein Negative Urine Glucose (UA) 500 H Urine Ketones Negative Urine Blood Negative Urine Nitrite Negative Urine Bilirubin Negative Urine Urobilinogen 0.2 Ur Leukocyte Esterase Negative Urine RBC 0 Urine WBC 0 Ur Epithelial Cells 0 Amorphous Sediment 1+ Urine Bacteria 0 - Results/Orders Results/Orders: Laboratory Tests 06/27/17 06/27/17 06/27/17 19:36 19:36 19:36 WBC 9.0 RBC 4.86 Hgb 14.2 Hct 43.0 MCV 88.5 MCH 29.3 MCHC 33.1 RDW 13.5 Plt Count 159 MPV 9.5 Absolute Neuts (auto) 5.40 Absolute Lymphs (auto) 2.60 Absolute Monos (auto) 0.50 Absolute Eos (auto) 0.50 H Absolute Basos (auto) 0.00 Neutrophils % 59.7 Lymphocytes % 28.7 Monocytes % 5.4 Eosinophils % 5.7 H Basophils % 0.5 Sodium 136 Potassium 4.3 Chloride 99 L Carbon Dioxide 26 Anion Gap 15.3 BUN 13 Creatinine 0.83 BUN/Creatinine Ratio 15.7 POC Glucose 389 H Random Glucose 444 H* Serum Osmolality 291.3 Calcium 9.0 Total Bilirubin 0.6 AST 29 ALT 34 Alkaline Phosphatase 108 Troponin I B-Natriuretic Peptide Serum Total Protein 7.2 Albumin 3.7 Globulin 3.5 Albumin/Globulin Ratio 1.1 Urine Color Urine Appearance Urine pH Ur Specific [place] Urine Protein Urine Glucose (UA) Urine Ketones Urine Blood Urine Nitrite Urine Bilirubin Urine Urobilinogen Ur Leukocyte Esterase Urine RBC Urine WBC Ur Epithelial Cells Amorphous Sediment Urine Bacteria 06/27/17 06/27/17 06/27/17 19:36 19:36 19:52 WBC RBC Hgb Hct MCV MCH MCHC RDW Plt Count MPV Absolute Neuts (auto) Absolute Lymphs (auto) Absolute Monos (auto) Absolute Eos (auto) Absolute Basos (auto) Neutrophils % Lymphocytes % Monocytes % Eosinophils % Basophils % Sodium Potassium Chloride Carbon Dioxide Anion Gap BUN Creatinine BUN/Creatinine Ratio POC Glucose Random Glucose Serum Osmolality Calcium Total Bilirubin AST ALT Alkaline Phosphatase Troponin I < 0.02 B-Natriuretic Peptide 24.7 Serum Total Protein Albumin Globulin Albumin/Globulin Ratio Urine Color Yellow Urine Appearance Clear Urine pH 5.0 Ur Specific [place] 1.015 Urine Protein Negative Urine Glucose (UA) 500 H Urine Ketones Negative Urine Blood Negative Urine Nitrite Negative Urine Bilirubin Negative Urine Urobilinogen 0.2 Ur Leukocyte Esterase Negative Urine RBC 0 Urine WBC 0 Ur Epithelial Cells 0 Amorphous Sediment 1+ Urine Bacteria 0 - EKG/XRAY/CT EKG: Sinus, nonspecific ST T wave Chg Comments: Heart rate 61 XRAY: chest - no acute abnormalities noted Departure - Departure Clinical Impression: Malaise and fatigue, Diabetes 1.5, managed as type 2 Time of Disposition: 21:09 Disposition: Discharge to Home or Self Care Condition: Good Departure Forms: ED Discharge - Pt. Copy, Patient Portal Self Enrollment Referrals: Ronald Holloway III, MD [Primary Care Provider] - 1-2 Weeks Home Medications: Ambulatory Orders Albuterol Inhaler [Ventolin Hfa Inhaler] 2 puff INH Q8H PRN #1 inh 11/10/15 Allopurinol [Zyloprim] 300 mg PO DAILY 11/10/15 Cyclobenzaprine HCl 10 mg PO DAILY 11/10/15 DULoxetine HCL [Cymbalta] 30 mg PO DAILY 11/10/15 Furosemide Tab [Lasix Tab] 40 mg PO DAILY 11/10/15 Gabapentin 300 mg PO TID 11/10/15 Glimepiride 4 mg PO DAILY 11/10/15 Isosorbide Mononitrate [Isosorbide Mononitrate ER] 60 mg PO DAILY 11/10/15 Meclizine HCl 25 mg PO BID 11/10/15 Meloxicam [Mobic] 15 mg PO DAILY 11/10/15 Memantine HCl [Namenda Xr] 28 mg PO DAILY 11/10/15 Metoclopramide Tab [Reglan] 5 mg PO AC 11/10/15 Metoprolol Tartrate 50 mg PO DAILY 11/10/15 Potassium Chloride [Potassium Chloride ER] 10 meq PO DAILY 11/10/15 Promethazine Tab [Phenergan Tablet] 25 mg PO Q6HRS PRN 11/10/15 Tramadol HCl 50 mg PO Q6HRS PRN 11/10/15 Vitamin D2 50,000 unit PO WKLY 01/06/16 Insulin Aspart [Novolog Flexpen] 06/25/17 Insulin Detemir [Levemir Pen] 06/25/17 Metformin HCl 06/25/17 Additional Instructions: Continue with current medication;Follow up with your primary md in am 2016 call for appointment
--- NOTE | 2017-06-27 20:08 | RAD ---
EXAM DESCRIPTION: Chest,1 View CLINICAL HISTORY: 71 years Female pain COMPARISON: None. FINDINGS: The cardiomediastinal silhouette appears unremarkable. No consolidating infiltrates or pleural effusions. No pneumothorax. IMPRESSION: No acute abnormality is identified. EXAM DESCRIPTION: Chest,1 View CLINICAL HISTORY: 71 years Female pain COMPARISON: 11/07/2016 FINDINGS: The cardiomediastinal silhouette appears unremarkable. No consolidating infiltrates or pleural effusions. No pneumothorax. IMPRESSION: No acute abnormality is identified. Electronically signed by: Traci Little 06/27/2017 8:07 PM CDT
[2017-06-27 20:10] VITALS: O2SAT 96
[2017-06-27] MEDS ORDERED: SODIUM CHLORIDE 0.9% 500ML 500 ML IVS ONE (20:41)
[2017-06-27] MEDS ORDERED: HYDROCOD/APAP 7.5/325 (ER DISP) #3 TAB PO ONE (21:11)
[2017-06-27 21:53] VITALS: BP 112/63; TEMP 97
== END 2017-06-27 21:45 | disposition home or self-care (01) ==
LOC: ER 18:43
DX: R53.81 Other malaise (principal); E11.9 Type 2 diabetes mellitus without complications; E07.9 Disorder of thyroid, unspecified; K21.9 Gastro-esophageal reflux disease without esophagitis; I11.0 Hypertensive heart disease with heart failure; I50.9 Heart failure, unspecified; Z86.73 Personal history of transient ischemic attack (TIA), and cerebral infarction without residual deficits; Z79.899 Other long term (current) drug therapy; Z79.4 Long term (current) use of insulin; Z88.2 Allergy status to sulfonamides; Z88.8 Allergy status to other drugs, medicaments and biological substances
CPT/HCPCS: 36415; 36416; 71010; 80053; 81001; 82948; 83880; 84484; 85025; 93005; J7040

== ENCOUNTER → 2017-08-10 | Outpatient (CLI) | payer MEDICARE | END | disposition home or self-care (01) | LOC: GMAL 10:18 | PROVIDERS: ATTEND Family Medicine | DX: E03.9 Hypothyroidism, unspecified (principal) ==

== ENCOUNTER 2017-09-04 00:55 | Observation (INO) | payer MEDICARE ==
[2017-09-04] MEDS ORDERED: NITROGLYCERIN 0.4 MG 25 EA TAB SL ONE ×2 (01:25)
--- NOTE | 2017-09-04 01:30 | RAD ---
EXAM DESCRIPTION: Chest,1 View CLINICAL HISTORY: chest pain COMPARISON: 06/27/2017 FINDINGS: Single frontal view of the chest. Low lung volumes. Leads overlie the chest. The cardiomediastinal silhouette has normal size and contour. No consolidation, pneumothorax, or pleural effusion. No displaced rib fractures identified. Upper abdominal soft tissues are unremarkable. IMPRESSION: 1. No acute pulmonary process identified. Electronically signed by: Peter Jenkins 09/04/2017 1:29 AM CDT
--- NOTE | 2017-09-04 01:46 | ED.PDOC ---
History of Present Illness - General Chief Complaint: Cardiovascular Problem Stated Complaint: left arm and shoulder pain radiates to back Time Seen by Provider: 09/04/17 01:18 Source: patient Exam Limitations: no limitations - History of Present Illness Initial Comments: Kinjal Villanueva 72 y/o female stated she had onset of stabbing chest pains radiated to left upper extremity and shoulder blades about 45 mis-1 hour ago denies diaphoresis but with mild sob and getting more constant decided to call ems. Timing/Duration: 1 hour Severity: moderate Location: central Activities at Onset: sleep Prior Chest Pain/Cardiac Workup: no prior cardiac workup Improving Factors: nothing Worsening Factors: nothing Nitro Today/Relief: 0.4 mg x 2, provided by EMS, provided by ED Aspirin Treatment Today: 81 mg x 4 Associated Symptoms: other - see hpi Allergies/Adverse Reactions: Allergies Iodine Allergy (Verified 09/04/17 01:20) Levofloxacin [From Levaquin] Allergy (Verified 09/04/17 01:20) Sulfa Drugs Allergy (Verified 09/04/17 01:20) plastic tape Allergy (Uncoded 06/25/17 04:14) Home Medications: Ambulatory Orders Albuterol Inhaler [Ventolin Hfa Inhaler] 2 puff INH Q8H PRN #1 inh 11/10/15 Allopurinol [Zyloprim] 300 mg PO DAILY 11/10/15 Cyclobenzaprine HCl 10 mg PO DAILY 11/10/15 DULoxetine HCL [Cymbalta] 30 mg PO DAILY 11/10/15 Furosemide Tab [Lasix Tab] 40 mg PO DAILY 11/10/15 Gabapentin 300 mg PO TID 11/10/15 Glimepiride 4 mg PO DAILY 11/10/15 Isosorbide Mononitrate [Isosorbide Mononitrate ER] 60 mg PO DAILY 11/10/15 Meclizine HCl 25 mg PO BID 11/10/15 Meloxicam [Mobic] 15 mg PO DAILY 11/10/15 Memantine HCl [Namenda Xr] 28 mg PO DAILY 11/10/15 Metoclopramide Tab [Reglan] 5 mg PO AC 11/10/15 Metoprolol Tartrate 50 mg PO DAILY 11/10/15 Potassium Chloride [Potassium Chloride ER] 10 meq PO DAILY 11/10/15 Promethazine Tab [Phenergan Tablet] 25 mg PO Q6HRS PRN 11/10/15 Tramadol HCl 50 mg PO Q6HRS PRN 11/10/15 Vitamin D2 50,000 unit PO WKLY 11/10/15 Insulin Aspart [Novolog Flexpen] 06/25/17 Insulin Detemir [Levemir Pen] 06/25/17 Metformin HCl 06/25/17 Review of Systems - Review of Systems Constitutional: States: no symptoms reported EENTM: States: no symptoms reported Respiratory: States: no symptoms reported Cardiology: States: see HPI Gastrointestinal/Abdominal: States: no symptoms reported Genitourinary: States: no symptoms reported Musculoskeletal: States: no symptoms reported Skin: States: no symptoms reported Past Medical History (General) - Patient Medical History Hx Seizures: No Hx Stroke: Yes Hx Dementia: No Hx Asthma: No Hx of COPD: No Hx Cardiac Disorders: Yes Hx Congestive Heart Failure: Yes Hx Pacemaker: No Hx Hypertension: Yes Hx Thyroid Disease: Yes Hx Diabetes: Yes Hx Gastroesophageal Reflux: No Hx Renal Disease: No Hx Cancer: No Hx of HIV: No Hx Hepatitis C: No Hx MRSA: No Surgical History: appendectomy, cholecystectomy, other - hysterectomy - Vaccination History Hx Tetanus, Diphtheria Vaccination: No Hx Influenza Vaccination: No Hx Pneumococcal Vaccination: Yes - Social History Hx Tobacco Use: No Hx Chewing Tobacco Use: No Hx Alcohol Use: No Hx Substance Use: No Hx Substance Use Treatment: No Hx Depression: No Hx Physical Abuse: No Hx Emotional Abuse: No - Female History Patient : No - Triage Comment ED Triage Comment: Pt presents to ER via [facility] form home c.o pain to left shoulder that radiates to elbow and across chest----Pain is "6" states. Family Medical History - Family History Mother Family History: No Known Living Status: Hx Family Asthma: No Hx Family Hypertension: Yes Hx Family Stroke: Yes Hx Cardiac Disease: Yes Hx Family Cancer: Yes - breast,kidney Physical Exam - Physical Exam General Appearance: Alert, No apparent distress Eyes, Ears, Nose, Throat Exam: normal ENT inspection, pharynx normal, other - counting fingers only with corneal degeneration Neck: non-tender, supple Respiratory: chest non-tender, lungs clear, normal breath sounds, no respiratory distress Cardiovascular/Chest: normal peripheral pulses, regular rate, rhythm, no murmur Peripheral Pulses: radial,right: 2+, radial,left: 2+ Gastrointestinal/Abdominal: non tender, soft, no organomegaly Neurologic: no motor/sensory deficits, alert, oriented x 3 Skin Exam: normal color, warm/dry Lymphatic: no adenopathy Progress - Progress Progress: 09/04/17 01:49 Vital Signs - 8 hr 09/04/17 09/04/17 09/04/17 01:07 01:10 01:46 Temperature 97.4 F L Pulse Rate 70 70 62 Pulse Rate [Rt 70 70 62 arm] Respiratory 20 18 Rate Blood Pressure 119/59 131/53 [Rt arm] O2 Sat by Pulse 98 95 Oximetry - Results/Orders Results/Orders: Laboratory Tests 09/04/17 09/04/17 09/04/17 00:45 00:45 02:30 WBC 12.0 H RBC 4.73 Hgb 13.8 Hct 42.5 MCV 89.9 MCH 29.2 MCHC 32.4 L RDW 14.6 H Plt Count 180 MPV 9.7 Absolute Neuts (auto) 6.60 Absolute Lymphs (auto) 3.40 Absolute Monos (auto) 0.70 Absolute Eos (auto) 1.20 H Absolute Basos (auto) 0.10 Neutrophils % 55.2 Lymphocytes % 28.3 Monocytes % 6.0 Eosinophils % 10.0 H Basophils % 0.5 PT 11.5 INR 1.020 PTT (SP) 28.1 D-Dimer, Quantitative 344 H* Sodium 138 Potassium 4.3 Chloride 104 Carbon Dioxide 27 Anion Gap 11.3 L BUN 18 Creatinine 0.83 BUN/Creatinine Ratio 21.7 H Random Glucose 288 H Serum Osmolality 288.1 Calcium 8.9 Magnesium 1.8 Creatine Kinase 53 CK-MB (CK-2) 1.6 CK-MB (CK-2) % Not Reportable Troponin I < 0.02 < 0.02 B-Natriuretic Peptide 09/04/17 02:51 WBC RBC Hgb Hct MCV MCH MCHC RDW Plt Count MPV Absolute Neuts (auto) Absolute Lymphs (auto) Absolute Monos (auto) Absolute Eos (auto) Absolute Basos (auto) Neutrophils % Lymphocytes % Monocytes % Eosinophils % Basophils % PT INR PTT (SP) D-Dimer, Quantitative Sodium Potassium Chloride Carbon Dioxide Anion Gap BUN Creatinine BUN/Creatinine Ratio Random Glucose Serum Osmolality Calcium Magnesium Creatine Kinase CK-MB (CK-2) CK-MB (CK-2) % Troponin I B-Natriuretic Peptide 52.2 - EKG/XRAY/CT EKG: Sinus, no ST T wave changes Comments: heart rate 67;occ pvc XRAY: chest - no acute abnormalities Departure - Departure Clinical Impression: Chest pain Qualifiers: Chest pain type: precordial pain Qualified Code(s): R07.2 - Precordial pain Diabetes mellitus Qualifiers: Diabetes mellitus type: type 2 Diabetes mellitus complication status: with unspecified complications 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 Qualified Code(s): E11.8 - Type 2 diabetes mellitus with unspecified complications Time of Disposition: 03:20 Disposition: Admit Patient Condition: Good Departure Forms: Patient Portal Self Enrollment Referrals: Ronald Holloway III, MD [Primary Care Provider] - 1-2 Weeks Home Medications: Ambulatory Orders Albuterol Inhaler [Ventolin Hfa Inhaler] 2 puff INH Q8H PRN #1 inh 11/10/15 Allopurinol [Zyloprim] 300 mg PO DAILY 11/10/15 Cyclobenzaprine HCl 10 mg PO DAILY 11/10/15 DULoxetine HCL [Cymbalta] 30 mg PO DAILY 11/10/15 Furosemide Tab [Lasix Tab] 40 mg PO DAILY 11/10/15 Gabapentin 300 mg PO TID 11/10/15 Glimepiride 4 mg PO DAILY 11/10/15 Isosorbide Mononitrate [Isosorbide Mononitrate ER] 60 mg PO DAILY 11/10/15 Meclizine HCl 25 mg PO BID 11/10/15 Meloxicam [Mobic] 15 mg PO DAILY 11/10/15 Memantine HCl [Namenda Xr] 28 mg PO DAILY 11/10/15 Metoclopramide Tab [Reglan] 5 mg PO AC 11/10/15 Metoprolol Tartrate 50 mg PO DAILY 11/10/15 Potassium Chloride [Potassium Chloride ER] 10 meq PO DAILY 11/10/15 Promethazine Tab [Phenergan Tablet] 25 mg PO Q6HRS PRN 11/10/15 Tramadol HCl 50 mg PO Q6HRS PRN 11/10/15 Vitamin D2 50,000 unit PO WKLY 11/10/15 Insulin Aspart [Novolog Flexpen] 06/25/17 Insulin Detemir [Levemir Pen] 06/25/17 Metformin HCl 06/25/17 Decision To Admit - Decistion To Admit Decision to Admit Reason: Admit from ER Decision to Admit Date: 09/04/17 Decision to Admit Time: 03:17 - D/W Gerry Pereira-ANP/Hospitalist
[2017-09-04] MEDS ORDERED: DEXTROSE 50% 25 GM/50 ML SYG IV PRN (04:51)
[2017-09-04] MEDS ORDERED: SODIUM CHLORIDE 0.9% (FLUSH) 10 ML SYG IV PRN (04:51)
[2017-09-04] MEDS ORDERED: ASPIRIN (CHEWABLE) 81 MG TAB PO ONE (04:51)
[2017-09-04] MEDS ORDERED: ACETAMINOPHEN 325 MG TAB PO PRN (04:51)
[2017-09-04] MEDS ORDERED: MORPHINE SULFATE INJ 10 MG/ML VIAL IV PRN (04:51)
[2017-09-04] MEDS ORDERED: NITROGLYCERIN 0.4 MG 25 EA TAB SL PRN (04:51)
[2017-09-04] MEDS ORDERED: GLUCAGON INJ 1 MG VIAL SUBCU PRN (04:51)
[2017-09-04] MEDS ORDERED: IV SET AND CAP CHANGE INJ INJ SCH (05:00)
[2017-09-04] MEDS: INSULIN LISPRO 100 UNITS/ML PEN SUBCU SCH ×2 (08:06→12:11)
[2017-09-04] MEDS ORDERED: SODIUM CHLORIDE 0.9% (FLUSH) 10 ML SYG IV SCH (09:00)
[2017-09-04 12:41] VITALS: BP 153/87; TEMP 97.6; O2SAT 97
--- NOTE | 2017-09-04 13:46 | SSS ---
SUPERVISING PHYSICIAN: Garcia Wong MD DATE OF ADMISSION: 09/04/17 DATE OF DISCHARGE: 09/04/17 DISCHARGE DIAGNOSIS: 1. Chest pain, rule out myocardial infarction with serial cardiac enzymes negative and EKGs showing normal sinus rhythm with rare to occasional premature ventricular contractions. 2. Diabetes mellitus, type 2, on oral and insulin therapy. 3. Congestive heart failure of unknown etiology, followed by Dr. Connors, lawnmower repair mechanic. 4. 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 Johnson, recycling or rubbish collector in [place]. She is scheduled with a corneal specialist in [place] on 09/10/17 for possible cornea transplant. 5. History of cerebrovascular accident times three with some residual left sided weakness. 6. Hypothyroidism. 7. Hyperlipidemia. 8. Hypertension. 9. Obstructive sleep apnea with CPAP at home. 10. Fibromyalgia. 11. Depression. 12. History of reactive airway disease. HISTORY OF PRESENT ILLNESS: This is a 72-year-old female patient who started having left sided chest pain about 7 PM yesterday. The chest pains were stabbing and they radiated to the left upper extremity as well as to the shoulder blades and the upper back. She denied any diaphoresis, but she had some mild shortness of breath and the chest pains did not resolve with rest. She came to the Emergency Room. She was given nitroglycerin times 2. Her initial cardiac enzymes were negative. Her white count was slightly elevated at 12 with a no hemoglobin and hematocrit at 13.8 and 42.5. D-dimer was slightly elevated at 344 and her electrolytes were within normal limits. Her BNP was 52.2. She was admitted for observation and her serial cardiac enzymes continued to be negative. Her EKG did show normal sinus rhythm with rare PVC. She will be discharged home in stable condition. It is to be noted that she does have some partial blindness due to corneal thinning. She sees Dr. Johnson, recycling or rubbish collector in [place] who has recently sent her to a cornea specialist in the [facility]. She has an appointment with the cornea specialist on 09/10/17 for possible cornea transplant. She also sees Dr. Connors, lawnmower repair mechanic. She did say she had an echocardiogram and a stress test done several years ago. PAST MEDICAL HISTORY: 1. Hypothyroidism. 2. Cerebrovascular accidents times three with some residual left sided weakness. 3. Coronary artery disease. 4. Congestive heart failure of unknown etiology. 5. Diabetes mellitus. 6. Hypertension. 7. Hyperlipidemia. 8. Reactive airways disease. 9. Gout. 10. Obstructive sleep apnea with CPAP at home. PAST SURGICAL HISTORY: 1. Appendectomy. 2. Unilateral oophorectomy. 3. Complete hysterectomy. 4. Cholecystectomy. ALLERGIES: IODINE, FLUOROQUINOLONES, CEPHALOSPORIN, SULFA, TAPE ADHESIVE, METOCLOPRAMIDE. FAMILY HISTORY: Father is positive for pneumonia, cerebrovascular accident and deep venous thrombosis. Mother is positive for pneumonia, cerebrovascular accident and heart problems. SOCIAL HISTORY: She is retired. She is . She has no children. She denies any ETOH, tobacco or illicit drug use. REVIEW OF SYSTEMS: Negative except as per history of present illness although she presently has no complaints of chest pain, shortness of breath, diaphoresis , nausea or vomiting. PHYSICAL EXAMINATION: VITAL SIGNS: Afebrile. Heart rate 62. Blood pressure 104/77. Respiratory rate 20. O2 saturation 97% on room air. GENERAL: This is a 72-year-old female patient lying in her hospital bed. She is in no acute distress. HEENT: Normocephalic, atraumatic. Oropharynx is clear. NECK: Supple without mass. No jugular venous distention. RESPIRATORY: Essentially clear to auscultation bilaterally. CHEST: There is equal rise and fall of the chest with inspiration and expiration. CARDIOVASCULAR: Regular rate and rhythm. ABDOMEN: Soft, nondistended, nontender. Bowel sounds are positive. EXTREMITIES: No cyanosis, clubbing or edema. NEUROLOGIC: Awake, alert and oriented times three. SKIN: Warm and dry with no lesions or rashes. DISCHARGE PLAN: The patient will be discharged home in stable condition. She has [facility] and we will call them to followup visit tomorrow. She also has a followup with Dr. Holloway, her primary care physician, tomorrow as well. She is to increase her activity as tolerated. She is to resume her home medications. I will also give her a prescription for nitroglycerin. She is to continue with her home aspirin. She is to resume her diabetic diet. She is to return to the Emergency Room or call Dr. Holloway' office for any further problems or complications. Again, it is to be noted she has an appointment with a cornea specialist on 09/10/17 for possible cornea transplant. DISCHARGE MEDICATIONS: 1. Tramadol. 2. Potassium chloride. 3. Reglan. 4. Namenda. 5. Allopurinol. 6. Furosemide. 7. Cymbalta. 8. Glimepiride. 9. Meclizine. 10. Isosorbide mononitrate. 11. Meloxicam. 12. Metoprolol. 13. Promethazine. 14. Vitamin D2. 15. Gabapentin. 16. Cyclobenzaprine. 17. Albuterol inhaler. 18. Levemir insulin. 19. NovoLog insulin. 20. Lipitor. 21. Levothyroxine, 22. Metformin. 23. Nitroglycerin. 24. Aspirin. Dr. Wong is the collaborating physician and available for consultation. #[id number] [facility]
[2017-09-05] MEDS ORDERED: ASPIRIN TABLET 325 MG TAB PO SCH (09:00)
== END 2017-09-04 14:11 | disposition home or self-care (01) ==
LOC: ER 00:55 → MS 03:45 → EDLOC 03:45
PROVIDERS: ADMIT Nurse Practitioner Family; ATTEND Nurse Practitioner Acute Care
DX: R07.89 Other chest pain (principal); E11.9 Type 2 diabetes mellitus without complications; I11.0 Hypertensive heart disease with heart failure; I50.9 Heart failure, unspecified; I49.3 Ventricular premature depolarization; R06.02 Shortness of breath; H54.3 Unqualified visual loss, both eyes; H18.893 Other specified disorders of cornea, bilateral; I69.354 Hemiplegia and hemiparesis following cerebral infarction affecting left non-dominant side; E03.9 Hypothyroidism, unspecified; E78.5 Hyperlipidemia, unspecified; G47.33 Obstructive sleep apnea (adult) (pediatric); M79.7 Fibromyalgia; F32.9 Major depressive disorder, single episode, unspecified; J45.909 Unspecified asthma, uncomplicated; I25.10 Atherosclerotic heart disease of native coronary artery without angina pectoris; M10.9 Gout, unspecified; Z79.4 Long term (current) use of insulin; Z79.1 Long term (current) use of non-steroidal anti-inflammatories (NSAID); Z79.82 Long term (current) use of aspirin; Z79.899 Other long term (current) drug therapy; Z88.2 Allergy status to sulfonamides; Z88.3 Allergy status to other anti-infective agents; Z88.8 Allergy status to other drugs, medicaments and biological substances; Z91.048 Other nonmedicinal substance allergy status
CPT/HCPCS: 36415 ×4; 36416 ×2; 71010; 80048; 80061; 82550 ×2; 82553 ×2; 82948 ×2; 83880; 84484 ×3; 85025; 85379; 85610; 85730; 93005 ×2; 94760; 96372; 99284; J1815

== ENCOUNTER 2017-09-12 12:25 | Emergency (ER) | payer MEDICARE ==
[2017-09-12 12:40] VITALS: TEMP 97.2; O2SAT 95
--- NOTE | 2017-09-12 13:29 | RAD ---
Three-view right knee. Indication: fall Comparison: September 25, 2016. Impression: No acute fracture or malalignment. Moderate to severe medial and patellofemoral compartment osteoarthritis with moderate changes laterally. Osteopenia. If this is a new finding, DEXA scan recommended as well as evaluation for possible osteoporosis treatment. Electronically signed by: Mango Bernstein MD 09/12/2017 1:28 PM [facility]
--- NOTE | 2017-09-12 13:30 | RAD ---
Two-view left shoulder. Two-view right shoulder. Indication: fall Comparison: None. Impression: Bilateral AC and glenohumeral joint alignment normal without fracture or dislocation. Severe bilateral AC joint osteoarthritis. Mild bilateral glenohumeral joint osteoarthritis. Question millimetric loose body inferior right glenohumeral joint. Electronically signed by: Mango Bernstein MD 09/12/2017 1:28 PM [facility]
--- NOTE | 2017-09-12 13:30 | RAD ---
Two-view left shoulder. Two-view right shoulder. Indication: fall Comparison: None. Impression: Bilateral AC and glenohumeral joint alignment normal without fracture or dislocation. Severe bilateral AC joint osteoarthritis. Mild bilateral glenohumeral joint osteoarthritis. Question millimetric loose body inferior right glenohumeral joint. Electronically signed by: Mango Bernstein MD 09/12/2017 1:28 PM [facility]
--- NOTE | 2017-09-12 13:38 | ED.PDOC ---
History of Present Illness - General Chief Complaint: Trauma Stated Complaint: s/p fall Time Seen by Provider: 09/12/17 12:46 Source: patient Exam Limitations: no limitations - History of Present Illness Initial Comments: the patient is a 72-year-old female that presents after a fall. The patient tripped over a chair and fell and is reporting some pain in her right knee, her right shoulder, and her left shoulder. The worst of her pain is in the right shoulder. No neck pain. The patient did present with a c-collar on which I'll discontinue clinically. She has no new neurological deficits and no pain in her neck with movement or with palpation. No loss of consciousness. She reports that she did hit her face but there is no evidence of any facial trauma clinically. No bruising, no lacerations, no bleeding from the nose or the mouth. She actually shows good passive and active range of motion around the right knee and the left shoulder. She does have some limitation on movement of the right shoulder secondary to pain. She apparently has injured that shoulder in the past. She does appear to be neurovascularly at her baseline. Timing/Duration: momentarily Severity: moderate Improving Factors: immobilization Worsening Factors: movement Associated Symptoms: denies symptoms Allergies/Adverse Reactions: Allergies Iodine Allergy (Verified 09/04/17 01:20) Levofloxacin [From Levaquin] Allergy (Verified 09/04/17 01:20) Sulfa Drugs Allergy (Verified 09/04/17 01:20) plastic tape Allergy (Uncoded 06/25/17 04:14) Home Medications: Ambulatory Orders Albuterol Inhaler [Ventolin Hfa Inhaler] 2 puff INH Q8H PRN #1 inh 11/10/15 Allopurinol [Zyloprim] 300 mg PO DAILY 11/10/15 Cyclobenzaprine HCl 10 mg PO DAILY 11/10/15 DULoxetine HCL [Cymbalta] 30 mg PO DAILY 11/10/15 Furosemide Tab [Lasix Tab] 40 mg PO DAILY 11/10/15 Gabapentin 300 mg PO TID 11/10/15 Glimepiride 4 mg PO DAILY 11/10/15 Isosorbide Mononitrate [Isosorbide Mononitrate ER] 60 mg PO DAILY 11/10/15 Meclizine HCl 25 mg PO BID 11/10/15 Meloxicam [Mobic] 15 mg PO DAILY 11/10/15 Memantine HCl [Namenda Xr] 28 mg PO DAILY 11/10/15 Metoclopramide Tab [Reglan Tab] 5 mg PO AC 11/10/15 Metoprolol Tartrate 50 mg PO DAILY 11/10/15 Potassium Chloride [Potassium Chloride ER] 10 meq PO DAILY 11/10/15 Promethazine Tab [Phenergan Tablet] 25 mg PO Q6HRS PRN 11/10/15 Tramadol HCl 50 mg PO Q6HRS PRN 11/10/15 Vitamin D2 50,000 unit PO WKLY 11/10/15 Insulin Aspart [Novolog Flexpen] 06/25/17 Insulin Detemir [Levemir Pen] 40 unit SUBCU BID 06/25/17 Aspirin [Aspirin EC Low Dose] 81 mg PO DAILY #30 tab 09/04/17 Atorvastatin Calcium [Lipitor] 40 mg PO DAILY 09/04/17 Levothyroxine Sodium [Synthroid] 100 mcg PO DAILY 09/04/17 Metformin HCl 500 mg PO BID 09/04/17 Nitroglycerin 0.4 mg Tab [Nitrostat] 1 ea SL Q5MIN PRN #1 bttl 09/04/17 Review of Systems - Review of Systems Constitutional: States: no symptoms reported EENTM: States: no symptoms reported Respiratory: States: no symptoms reported Cardiology: States: no symptoms reported Gastrointestinal/Abdominal: States: no symptoms reported Genitourinary: States: no symptoms reported Musculoskeletal: States: see HPI Skin: States: no symptoms reported Neurological: States: no symptoms reported Endocrine: States: no symptoms reported Past Medical History (General) - Patient Medical History Hx Seizures: No Hx Stroke: Yes Hx Dementia: No Hx Asthma: No Hx of COPD: No Hx Cardiac Disorders: No Hx Congestive Heart Failure: Yes Hx Pacemaker: No Hx Hypertension: Yes Hx Thyroid Disease: Yes Hx Diabetes: Yes Hx Gastroesophageal Reflux: No Hx Renal Disease: No Hx Cancer: No Hx of HIV: No Hx Hepatitis C: No Hx MRSA: No Surgical History: appendectomy, cholecystectomy, Hysterectomy - Vaccination History Hx Tetanus, Diphtheria Vaccination: No Hx Influenza Vaccination: Yes Hx Pneumococcal Vaccination: Yes - Social History Hx Tobacco Use: No Hx Chewing Tobacco Use: No Hx Alcohol Use: No Hx Substance Use: No Hx Substance Use Treatment: No Hx Depression: No Hx Physical Abuse: No Hx Emotional Abuse: No - Female History Patient : No Family Medical History - Family History Mother Family History: No Known Living Status: Hx Family Asthma: No Hx Family Hypertension: Yes Hx Family Stroke: Yes Hx Cardiac Disease: Yes Hx Family Cancer: Yes - breast,kidney Physical Exam - Physical Exam General Appearance: Alert, Comfortable, No apparent distress Eye Exam: bilateral normal - poor vision bilaterally which is chronic Ears, Nose, Throat: hearing grossly normal, normal ENT inspection, normal pharynx Neck: non-tender, full range of motion, supple, normal inspection Respiratory: lungs clear, normal breath sounds, no respiratory distress, no accessory muscle use Cardiovascular/Chest: normal peripheral pulses, no edema, other - regular rate Peripheral Pulses: radial,right: 2+, radial,left: 2+, dorsalis pedis,right: 2+, dorsalis pedis,left: 2+ Gastrointestinal/Abdominal: non tender, soft Rectal Exam: deferred Back Exam: normal inspection, no CVA tenderness, no vertebral tenderness Extremity: normal range of motion, no pedal edema, no calf tenderness, normal capillary refill, other - see history of present illness Neurologic: alert, normal mood/affect, oriented x 3 Skin Exam: normal color Comments: Vital Signs - 24 hr 09/12/17 12:35 Temperature 97.2 F L Pulse Rate [ 64 Left Ulnar] Respiratory 20 Rate Blood Pressure 99/54 [Left Arm] O2 Sat by Pulse 95 Oximetry Progress - Progress Progress: 09/12/17 13:39 the patient is a 72-year-old female presenting to the emergency room after a fall from tripping over a chair. X-rays of the right knee, left shoulder and right shoulder show no evidence of any definitive acute trauma. No obvious dislocation or fracture. There is a small 1 mm calcification inferior to the right glenohumeral joint that may possibly indicate a recent dislocation\reduction. I'm not going to place the patient in a shoulder immobilizer as she is already a fall risk in doing that would likely impede her ability to catch herself. She does need to ambulate carefully. Motrin and Tylenol can be used for discomfort. She should follow-up with her primary care doctor before the weekend. She may yet require some physical therapy to improve her functional status in the near future. Departure - Departure Clinical Impression: Right shoulder injury Qualifiers: Encounter type: initial encounter Qualified Code(s): S49.91XA - Unspecified injury of right shoulder and upper arm, initial encounter Disposition: Discharge to Home or Self Care Condition: Fair Departure Forms: ED Discharge - Pt. Copy, Patient Portal Self Enrollment Diet: regular diet Activity: increase activity as tolerated Referrals: Ronald Holloway III, MD [Primary Care Provider] - 1-2 Days Home Medications: Ambulatory Orders Albuterol Inhaler [Ventolin Hfa Inhaler] 2 puff INH Q8H PRN #1 inh 11/10/15 Allopurinol [Zyloprim] 300 mg PO DAILY 11/10/15 Cyclobenzaprine HCl 10 mg PO DAILY 11/10/15 DULoxetine HCL [Cymbalta] 30 mg PO DAILY 11/10/15 Furosemide Tab [Lasix Tab] 40 mg PO DAILY 11/10/15 Gabapentin 300 mg PO TID 11/10/15 Glimepiride 4 mg PO DAILY 11/10/15 Isosorbide Mononitrate [Isosorbide Mononitrate ER] 60 mg PO DAILY 11/10/15 Meclizine HCl 25 mg PO BID 11/10/15 Meloxicam [Mobic] 15 mg PO DAILY 11/10/15 Memantine HCl [Namenda Xr] 28 mg PO DAILY 11/10/15 Metoclopramide Tab [Reglan Tab] 5 mg PO AC 11/10/15 Metoprolol Tartrate 50 mg PO DAILY 11/10/15 Potassium Chloride [Potassium Chloride ER] 10 meq PO DAILY 11/10/15 Promethazine Tab [Phenergan Tablet] 25 mg PO Q6HRS PRN 11/10/15 Tramadol HCl 50 mg PO Q6HRS PRN 11/10/15 Vitamin D2 50,000 unit PO WKLY 11/10/15 Insulin Aspart [Novolog Flexpen] 06/25/17 Insulin Detemir [Levemir Pen] 40 unit SUBCU BID 06/25/17 Aspirin [Aspirin EC Low Dose] 81 mg PO DAILY #30 tab 09/04/17 Atorvastatin Calcium [Lipitor] 40 mg PO DAILY 09/04/17 Levothyroxine Sodium [Synthroid] 100 mcg PO DAILY 09/04/17 Metformin HCl 500 mg PO BID 09/04/17 Nitroglycerin 0.4 mg Tab [Nitrostat] 1 ea SL Q5MIN PRN #1 bttl 09/04/17 Additional Instructions: the patient is a 72-year-old female presenting to the emergency room after a fall from tripping over a chair. X-rays of the right knee, left shoulder and right shoulder show no evidence of any definitive acute trauma. No obvious dislocation or fracture. There is a small 1 mm calcification inferior to the right glenohumeral joint that may possibly indicate a recent dislocation\reduction. I'm not going to place the patient in a shoulder immobilizer as she is already a fall risk in doing that would likely impede her ability to catch herself. She does need to ambulate carefully. Motrin and Tylenol can be used for discomfort. She should follow-up with her primary care doctor before the weekend. She may yet require some physical therapy to improve her functional status in the near future.
[2017-09-12 14:04] VITALS: BP 116/65
== END 2017-09-12 14:04 | disposition home or self-care (01) ==
LOC: ER 12:25
DX: S49.91XA Unspecified injury of right shoulder and upper arm, initial encounter (principal); I10 Essential (primary) hypertension; E11.9 Type 2 diabetes mellitus without complications; E07.9 Disorder of thyroid, unspecified; Z86.73 Personal history of transient ischemic attack (TIA), and cerebral infarction without residual deficits; Z79.899 Other long term (current) drug therapy; Z79.4 Long term (current) use of insulin; Z79.82 Long term (current) use of aspirin; Z88.2 Allergy status to sulfonamides; Z88.8 Allergy status to other drugs, medicaments and biological substances; W18.09XA Striking against other object with subsequent fall, initial encounter; Y92.9 Unspecified place or not applicable

== ENCOUNTER → 2017-10-02 | Outpatient (CLI) | payer MEDICARE | END | disposition home or self-care (01) | LOC: GRHH 09:56 | PROVIDERS: ATTEND Family Medicine | DX: I10 Essential (primary) hypertension (principal); E78.5 Hyperlipidemia, unspecified; E55.9 Vitamin D deficiency, unspecified; E11.9 Type 2 diabetes mellitus without complications ==

== ENCOUNTER 2017-10-12 17:17 | Inpatient (IN) | payer MEDICARE ==
--- NOTE | 2017-10-12 18:08 | ED.PDOC ---
History of Present Illness - General Chief Complaint: General Stated Complaint: Visual changes, dizziness, unsteady gait Time Seen by Provider: 10/12/17 18:02 Source: patient Exam Limitations: no limitations - History of Present Illness Initial Comments: Kinjal Villanueva 72 y/o female brought by EMS after feeling dizzy feels like spinning when moving head side to side ;up and down and also seeing halos as well as double vision about 2 1/2 hours ago.Stated has complex migraines in the past and had seen neurologist Dr. Cope no longer in town also feels unsteady when she walks.Denies weakness ,slurred speech.feeling of passing out. Timing/Duration: 1-3 hours Severity: moderate Improving Factors: nothing Worsening Factors: movement Associated Symptoms: other - see hpi Allergies/Adverse Reactions: Allergies Iodine Allergy (Verified 10/12/17 17:29) Levofloxacin [From Levaquin] Allergy (Verified 10/12/17 17:29) Sulfa Drugs Allergy (Verified 10/12/17 17:29) plastic tape Allergy (Uncoded 10/12/17 17:29) Home Medications: Ambulatory Orders Albuterol Inhaler [Ventolin Hfa Inhaler] 2 puff INH Q8H PRN #1 inh 11/10/15 Allopurinol [Zyloprim] 300 mg PO DAILY 11/10/15 Cyclobenzaprine HCl 10 mg PO DAILY 11/10/15 DULoxetine HCL [Cymbalta] 30 mg PO DAILY 11/10/15 Furosemide Tab [Lasix Tab] 40 mg PO DAILY 11/10/15 Gabapentin 300 mg PO TID 11/10/15 Glimepiride 4 mg PO DAILY 11/10/15 Isosorbide Mononitrate [Isosorbide Mononitrate ER] 60 mg PO DAILY 11/10/15 Meclizine HCl 25 mg PO BID 11/10/15 Meloxicam [Mobic] 15 mg PO DAILY 11/10/15 Memantine HCl [Namenda Xr] 28 mg PO DAILY 11/10/15 Metoclopramide Tab [Reglan Tab] 5 mg PO AC 11/10/15 Metoprolol Tartrate 50 mg PO DAILY 11/10/15 Potassium Chloride [Potassium Chloride ER] 10 meq PO DAILY 11/10/15 Promethazine Tab [Phenergan Tablet] 25 mg PO Q6HRS PRN 11/10/15 Tramadol HCl 50 mg PO Q6HRS PRN 11/10/15 Vitamin D2 50,000 unit PO WKLY 11/10/15 Insulin Aspart [Novolog Flexpen] 06/25/17 Insulin Detemir [Levemir Pen] 40 unit SUBCU BID 06/25/17 Aspirin [Aspirin EC Low Dose] 81 mg PO DAILY #30 tab 09/04/17 Atorvastatin Calcium [Lipitor] 40 mg PO DAILY 09/04/17 Levothyroxine Sodium [Synthroid] 100 mcg PO DAILY 09/04/17 Metformin HCl 500 mg PO BID 09/04/17 Nitroglycerin 0.4 mg Tab [Nitrostat] 1 ea SL Q5MIN PRN #1 bttl 09/04/17 Review of Systems - Review of Systems Constitutional: States: no symptoms reported EENTM: States: see HPI Respiratory: States: no symptoms reported Cardiology: States: no symptoms reported Gastrointestinal/Abdominal: States: no symptoms reported Musculoskeletal: States: no symptoms reported Skin: States: no symptoms reported Neurological: States: see HPI Endocrine: States: no symptoms reported Past Medical History (General) - Patient Medical History Hx Seizures: No Hx Stroke: Yes Hx Dementia: No Hx Asthma: No Hx of COPD: No Hx Cardiac Disorders: No Hx Congestive Heart Failure: Yes Hx Pacemaker: No Hx Hypertension: Yes Hx Thyroid Disease: Yes Hx Diabetes: Yes Hx Gastroesophageal Reflux: No Hx Renal Disease: No Hx Cancer: No Hx of HIV: No Hx Hepatitis C: No Hx MRSA: No Hx Other PMH: Yes - complex migaines Hx Other - free text: KERATITIS both eyes scheduled for corneal surgery Surgical History: appendectomy, cholecystectomy, other - hysterectomy - Vaccination History Hx Tetanus, Diphtheria Vaccination: No Hx Influenza Vaccination: No Hx Pneumococcal Vaccination: Yes - Social History Hx Tobacco Use: No Hx Chewing Tobacco Use: No Hx Alcohol Use: No Hx Substance Use: No Hx Substance Use Treatment: No Hx Depression: No Hx Physical Abuse: No Hx Emotional Abuse: No - Activities of Daily Living Patient Lives Alone: Yes - has 2 caregiver Grooming Ability: Minimum Assistance Eating (Feeding) Ability: Minimum Assistance Toileting Ability: Minimum Assistance - Female History Patient is a Female of Child Bearing Age (10 -59 yrs old): No Patient : No Family Medical History - Family History Mother Family History: No Known Living Status: Hx Family Asthma: No Hx Family Hypertension: Yes Hx Family Stroke: Yes Hx Cardiac Disease: Yes Hx Family Cancer: Yes - breast,kidney Hx Family;Other: migraines mom Physical Exam - Physical Exam General Appearance: Alert, Comfortable, No apparent distress Eye Exam: bilateral normal Ears, Nose, Throat: hearing grossly normal, normal ENT inspection, normal pharynx Neck: non-tender, full range of motion, supple Respiratory: lungs clear, normal breath sounds, no respiratory distress Cardiovascular/Chest: normal peripheral pulses, regular rate, rhythm, no gallop , no murmur Peripheral Pulses: radial,right: 2+, radial,left: 2+ Gastrointestinal/Abdominal: normal bowel sounds, non tender, soft, no organomegaly Back Exam: no CVA tenderness, no vertebral tenderness Extremity: no pedal edema, no calf tenderness Neurologic: no motor/sensory deficits, alert, normal mood/affect, oriented x 3, other - speech fluent;pronator drift negative Progress - Progress Progress: 10/12/17 19:25 Last Vital Signs Temp 98.0 F 10/12/17 17:22 Pulse 68 10/12/17 18:18 Resp 20 10/12/17 18:18 BP 150/79 10/12/17 18:18 Pulse Ox 96 10/12/17 18:18 - Results/Orders Results/Orders: Laboratory Tests 10/12/17 10/12/17 10/12/17 18:30 19:00 19:00 WBC 10.6 RBC 4.70 Hgb 13.9 Hct 41.9 MCV 89.1 MCH 29.6 MCHC 33.2 RDW 14.0 Plt Count 173 MPV 9.9 Absolute Neuts (auto) 6.60 Absolute Lymphs (auto) 2.60 Absolute Monos (auto) 0.70 Absolute Eos (auto) 0.60 H Absolute Basos (auto) 0.10 Neutrophils % 62.4 Lymphocytes % 24.3 Monocytes % 6.6 Eosinophils % 6.1 H Basophils % 0.6 Sodium 136 Potassium 3.9 Chloride 102 Carbon Dioxide 27 Anion Gap 10.9 L BUN 16 Creatinine 0.69 BUN/Creatinine Ratio 23.2 H Random Glucose 302 H Serum Osmolality 284.5 Calcium 9.0 Total Bilirubin 0.2 AST 23 ALT 24 Alkaline Phosphatase 96 Serum Total Protein 7.6 Albumin 3.7 Globulin 3.9 H Albumin/Globulin Ratio 0.9 L Urine Color Yellow Urine Appearance Cloudy Urine pH 6.0 Ur Specific [place] 1.020 Urine Protein Negative Urine Glucose (UA) 500 H Urine Ketones Negative Urine Blood Trace-lysed H Urine Nitrite Negative Urine Bilirubin Negative Urine Urobilinogen 0.2 Ur Leukocyte Esterase Large H Urine RBC 10-20 H Urine WBC >100 H Ur Epithelial Cells 3-5 Urine Bacteria 3+ H - EKG/XRAY/CT CT Ordered: Yes - head no acute intracranial abnormalities Departure - Departure Clinical Impression: Transient cerebral ischemic attack, unspecified Qualifiers: 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 Qualified Code(s): G45.0 - Vertebro-basilar artery syndrome Urinary tract infection Qualifiers: Urinary tract infection type: site unspecified Hematuria presence: without hematuria Qualified Code(s): N39.0 - Urinary tract infection, site not specified Time of Disposition: 20:54 Disposition: Admit Patient Condition: Fair Departure Forms: Patient Portal Self Enrollment Referrals: Ronald Holloway III, MD [Primary Care Provider] - 1-2 Weeks Home Medications: Ambulatory Orders Albuterol Inhaler [Ventolin Hfa Inhaler] 2 puff INH Q8H PRN #1 inh 11/10/15 Allopurinol [Zyloprim] 300 mg PO DAILY 11/10/15 Cyclobenzaprine HCl 10 mg PO DAILY 11/10/15 DULoxetine HCL [Cymbalta] 30 mg PO DAILY 11/10/15 Furosemide Tab [Lasix Tab] 40 mg PO DAILY 11/10/15 Gabapentin 300 mg PO TID 11/10/15 Glimepiride 4 mg PO DAILY 11/10/15 Isosorbide Mononitrate [Isosorbide Mononitrate ER] 60 mg PO DAILY 11/10/15 Meclizine HCl 25 mg PO BID 11/10/15 Meloxicam [Mobic] 15 mg PO DAILY 11/10/15 Memantine HCl [Namenda Xr] 28 mg PO DAILY 11/10/15 Metoclopramide Tab [Reglan Tab] 5 mg PO AC 11/10/15 Metoprolol Tartrate 50 mg PO DAILY 11/10/15 Potassium Chloride [Potassium Chloride ER] 10 meq PO DAILY 11/10/15 Promethazine Tab [Phenergan Tablet] 25 mg PO Q6HRS PRN 11/10/15 Tramadol HCl 50 mg PO Q6HRS PRN 11/10/15 Vitamin D2 50,000 unit PO WKLY 11/10/15 Insulin Aspart [Novolog Flexpen] 06/25/17 Insulin Detemir [Levemir Pen] 40 unit SUBCU BID 06/25/17 Aspirin [Aspirin EC Low Dose] 81 mg PO DAILY #30 tab 09/04/17 Atorvastatin Calcium [Lipitor] 40 mg PO DAILY 09/04/17 Levothyroxine Sodium [Synthroid] 100 mcg PO DAILY 09/04/17 Metformin HCl 500 mg PO BID 09/04/17 Nitroglycerin 0.4 mg Tab [Nitrostat] 1 ea SL Q5MIN PRN #1 bttl 09/04/17 Decision To Admit - Decistion To Admit Decision to Admit Reason: Admit from ER Decision to Admit Date: 10/12/17 - D/W Tara Spencer -ANP/Hospitalist Decision to Admit Time: 20:54
--- NOTE | 2017-10-12 19:45 | CT ---
EXAM: Head CLINICAL INDICATION: 72-year-old male with dizziness and double vision. COMPARISON: None. TECHNIQUE: CT brain without contrast. This exam was performed according to our departmental dose optimization program which includes use of automated exposure control, adjustment of the mA and/or kV according to patient size and/or use of iterative reconstruction technique. FINDINGS: Encephalomalacia and gliosis present at the level of the RIGHT parietal and occipital lobe, RIGHT inferior frontal lobe suggesting sequela of prior infarction. Hypoattenuation of the LEFT cerebellum compatible with sequela of prior cerebellar infarction with similar-appearing subcentimeter focus within the RIGHT cerebellum all of which are stable since examination dated 06/25/2017. Multifocal regions of patchy hypoattenuation are present in a subcortical and periventricular deep white matter distribution, nonspecific; however, most likely represent small vessel ischemic disease, age indeterminate. Empty sella otherwise the midline structures are within normal limits. The ventricles, sulci, and cisterns are symmetric and unremarkable. The huitron-white matter differentiation is preserved. There is no mass effect, midline shift, intra- or extra-axial fluid collection/acute hemorrhage. The osseous structures are unremarkable. The paranasal sinuses and mastoid air cells are clear. IMPRESSION: 1. No acute intracranial abnormalities. Nonspecific white matter change most likely small vessel ischemic disease, age indeterminate. 2. CT is insensitive for early evaluation of acute stroke. If there is clinical concern for acute ischemia, an MRI may be considered. Electronically signed by: Chely Abreu MD 10/12/2017 7:44 PM [facility] Workstation: [id number]
[2017-10-12] MEDS ORDERED: cefTRIAXone SODIUM 1 GM in SODIUM CHL 0.9% 50ML MIN-BAG+ 50 ML IVPB ONE (20:55)
[2017-10-12] MEDS ORDERED: cefTRIAXone SODIUM 1 GM VIAL ONE (20:58)
[2017-10-12] MEDS ORDERED: SODIUM CHL 0.9% 50ML MIN-BAG+ 50 ML IVPB ONE (20:58)
[2017-10-12] MEDS ORDERED: EPINEPHrine HCL AMP 1 MG/ML AMP ONE (21:17)
[2017-10-12] MEDS ORDERED: diphenhydrAMINE HCL 50 MG/ML VIAL ONE (21:17)
[2017-10-12] MEDS ORDERED: EPINEPHrine HCL AMP 1 MG/ML AMP IM ONE (21:17)
[2017-10-12] MEDS ORDERED: DEXAMETHASONE INJ 4 MG/ML VIAL IV ONE (21:18)
[2017-10-12] MEDS ORDERED: diphenhydrAMINE HCL 50 MG/ML VIAL IV PRN (21:18)
[2017-10-12] MEDS ORDERED: DEXAMETHASONE INJ 4 MG/ML VIAL ONE (21:18)
--- NOTE | 2017-10-12 22:16 | HP ---
SUPERVISING PHYSICIAN: Fabian Gipson MD CHIEF COMPLAINT: Double vision, dizziness and unsteady gait. HISTORY OF PRESENT ILLNESS: This is a 72-year-old female patient who was brought into the Emergency Room via EMS after she was feeling dizzy and having double vision and halos around her eyes. She also has a very unsteady gait and was unable to walk even using her walker. In the Emergency Room she continued to have some mild visual disturbances but eventually her vision corrected to baseline while she was in the Emergency Room. In the past she has seen Dr. De La O but she no longer sees him and she has complex migraines as well as some visual problems. She is scheduled for cataract surgery as well as a corneal transplant in November. She also has a history of visual migraines. A CT of the head was done and per radiology interpretation showed no acute intracranial abnormalities, most likely small vessel ischemic changes, age is indeterminate. Her CBC was basically within normal limits and her chemistries were also basically within normal limits. She did have a urinary tract infection with a glucose of 500, trace of urine blood, large leukocyte esterase, 10 to 12 urine RBCs, greater than 100 WBCs and urine bacteria of 3+. She was given Rocephin in the Emergency Room, shortly thereafter she came diaphoretic and had some shortness of breath. She was given some Decadron and some Benadryl and the Rocephin was discontinued. Her vital signs were normalized and I was called for admission to the hospital. PAST MEDICAL HISTORY: 1. Hypothyroidism. 2. 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 3. Coronary artery disease. 4. Congestive heart failure of unknown etiology. 5. Diabetes mellitus type 2. 6. Hypertension. 7. Hyperlipidemia. 8. Reactive airways disease. 9. Gout. 10. Obstructive sleep apnea with CPAP at home. PAST SURGICAL HISTORY: 1. Appendectomy. 2. Unilateral oophorectomy. 3. Complete hysterectomy. 4. Cholecystectomy. OUTPATIENT MEDICATIONS: Awaiting verification via the EMR. ALLERGIES: IODINE, FLUOROQUINOLONES, CEPHALOSPORINS, SULFA, TAPE ADHESIVE, METOCLOPRAMIDE. FAMILY HISTORY: Positive for pneumonia, cerebrovascular accident, deep venous thrombosis and heart problems. SOCIAL HISTORY: She is retired, she is . She has no children. She denies any ETOH, tobacco or illicit drug use. REVIEW OF SYSTEMS: Negative for fever, fatigue or weight changes. HEENT: Vision as per history of present illness. Negative for sinus symptoms, ear pain or sore throat. RESPIRATORY: Negative for shortness of breath, coughing or wheezing. CARDIAC: Negative for chest pain, tachycardia or palpitations. GI: Negative for nausea, vomiting or diarrhea or constipation. : Negative for dysuria, polyuria or hematuria. NEURO: As per history of present illness, although has mostly resolved at this time. PHYSICAL EXAMINATION: VITAL SIGNS: She is afebrile, heart rate 94, blood pressure 144/70, respiratory rate 22, 02 saturation 92% on room air. GENERAL: This is a 72 year-old female patient who is laying in her hospital bed. She is in no acute distress. HEENT: Normocephalic and atraumatic. Pupils equal and reactive. Oropharynx is clear. NECK: Supple without mass. There is no jugular venous distention. CHEST: Essentially clear to auscultation bilaterally. There is equal rise and fall of the chest with inspiration and expiration. CARDIOVASCULAR: Regular rate and rhythm. ABDOMEN: Slightly tender in the epigastric region. There is an umbilical hernia present. It is nondistended. Bowel sounds are positive. EXTREMITIES: No cyanosis or clubbing, there is a trace of pedal edema bilaterally. NEUROLOGIC: She is alert, alert and oriented x 3. She is slightly weaker on the left side than the right side but that is from an old CVA. She moves all extremities without problems. Labs and films are as per history of present illness. ASSESSMENT: 1. Transient ischemic attack with mild visual disturbances, dizziness and weakness. 2. Urinary tract infection. 3. Diabetes mellitus type 2. 4. 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 Johnson in [place]. She is scheduled for bilateral cataract surgery in November. 5. History of CVAs with some residual left-sided weakness. 6. Hypothyroidism. 7. Hypertension. 8. Congestive heart failure of unknown etiology. PLAN: We will place the patient in observation. I have added neuro checks and started her on an aspirin 325 mg daily, do a carotid ultrasound tomorrow morning. She has also been started on Lovenox for deep venous thrombosis prophylaxis and a PPI for ulcer prophylaxis. I have given her Augmentin for her urinary tract infection and we will await cultures and followup as needed. Her blood sugars are quite elevated, but most likely from steroids in the ER. Will add her routine diabetic medications and sliding scale insulin. Routine lab will be ordered for in the morning and we will continue to monitor the patient closely and follow as needed. Dr. Gipson is the collaborating physician available for consultation. #[id number] [facility]
[2017-10-12] MEDS ORDERED: ONDANSETRON INJ 4 MG/2 ML VIAL IV PRN (22:29)
[2017-10-12] MEDS ORDERED: GLUCAGON INJ 1 MG VIAL SUBCU PRN (22:36)
[2017-10-12] MEDS ORDERED: DEXTROSE 50% 25 GM/50 ML SYG IV PRN (22:36)
[2017-10-12] MEDS ORDERED: INSULIN DETEMIR 100 UNITS/ML PEN SUBCU ONE (22:58)
[2017-10-12] MEDS ORDERED: MECLIZINE HCL 12.5 MG TAB PO ONE (23:04)
[2017-10-12] MEDS ORDERED: GABAPENTIN 300 MG CAP PO ONE (23:04)
[2017-10-12] MEDS: AMOXICILLIN & POT CLAVULANATE 500MG TAB PO SCH (23:19)
[2017-10-12] MEDS ORDERED: ENOXAPARIN SODIUM 40 MG/0.4 ML SYG SUBCU SCH (23:30)
[2017-10-12] MEDS: traZODone HCL 50 MG TAB PO PRN (23:35)
[2017-10-13] MEDS ORDERED: ACETAMINOPHEN 325 MG TAB PO PRN (01:33)
[2017-10-13] MEDS: INSULIN LISPRO 100 UNITS/ML PEN SUBCU SCH ×5 (06:37→21:17)
[2017-10-13] MEDS: PANTOPRAZOLE SODIUM IV 40 MG VIAL IV SCH (06:41)
[2017-10-13] MEDS: AMOXICILLIN & POT CLAVULANATE 500MG TAB PO SCH ×3 (06:41→23:04)
[2017-10-13] MEDS ORDERED: INSULIN DETEMIR 100 UNITS/ML PEN SUBCU ONE (09:25)
[2017-10-13] MEDS: ASPIRIN TABLET 325 MG TAB PO SCH (10:16)
[2017-10-13] MEDS: SODIUM CHLORIDE 0.9% (FLUSH) 10 ML SYG IV SCH ×2 (10:17→20:40)
[2017-10-13] MEDS: GABAPENTIN 300 MG CAP PO SCH ×5 (11:56→20:39)
--- NOTE | 2017-10-13 12:15 | PN ---
DATE: 10/13/17 SUPERVISING PHYSICIAN: Fabian Gipson M.D. SUBJECTIVE: The patient is lying in bed. Has no complaints of any neurological problems overnight. She still has complaints of problems with her vision but she has had that for quite some time, which is why she is awaiting cataract/corneal transplant surgery in November. Denies any shortness of breath , chest pain, nausea, vomiting or diarrhea. OBJECTIVE: VITAL SIGNS: She is afebrile, heart rate 82, blood pressure 128/79, respiratory rate 18, O2 sat is 93% on room air. RESPIRATORY: Essentially clear to auscultation bilaterally. CARDIAC: Slightly irregular rhythm, regular rate. GASTROINTESTINAL: Abdomen is soft, nondistended, non-tender. Bowel sounds are positive. EXTREMITIES: There is no cyanosis but she has a trace of pedal edema. NEUROLOGIC: She is awake, alert and oriented times three. LABORATORY: WBCs are elevated to 12.2, hemoglobin 13.9, hematocrit 42.2, neutrophils are 92.7%. Sodium is slightly low at 134, potassium is slightly high at 5.2. Blood sugars have run as high as 427. Preliminary urine culture needs further incubation. All other labs and films have been reviewed via the EMR. ASSESSMENT: 1. Transient ischemic attack with mild visual disturbances, dizziness and weakness that is improving. 2. Urinary tract infection. 3. Diabetes mellitus type 2. 4. 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 Johnson in [place]. She is scheduled for bilateral cataract surgery in November. 5. History of CVAs with some residual left-sided weakness. 6. Hypothyroidism. 7. Hypertension. 8. Congestive heart failure of unknown etiology. 9. Hyperglycemia with elevated blood sugars most likely due to Decadron administration in the Emergency Room. PLAN: We will continue present supportive care. At this point, her neurological symptoms have improved. Her home medications have still not been verified, although I have started her on Gabapentin and I gave her 50 units of Levemir this morning instead of her usual 40. We will get her routine medications restarted. Monitor her blood sugars very closely because most likely they are elevated due to her steroid administration in the Emergency Room for her adverse reaction to Rocephin. Hopefully will be ready for discharge tomorrow with close followup with her family physician, Dr. Holloway. Dr. Gipson is the collaborating physician available for consultation. #[id number] [facility]
[2017-10-13] MEDS ORDERED: traMADol HCL 50 MG TAB PO PRN (14:44)
[2017-10-13] MEDS ORDERED: CYCLOBENZAPRINE HCL 10 MG TAB PO PRN (14:44)
[2017-10-13] MEDS ORDERED: HYDROcodone 5MG/APAP 325MG 1 EA TAB PO PRN (14:44)
[2017-10-13] MEDS ORDERED: MECLIZINE HCL 12.5 MG TAB PO PRN (15:30)
[2017-10-13] MEDS: DULoxetine HCL 30 MG CAP PO SCH (16:15)
[2017-10-13] MEDS: FUROSEMIDE 40 MG TAB PO SCH (16:16)
[2017-10-13] MEDS: METOPROLOL TARTRATE 50 MG TAB PO SCH (17:29)
[2017-10-13] MEDS: GLIMEPIRIDE 2 MG TAB PO SCH (17:30)
[2017-10-13] MEDS: metFORMIN HCL 500 MG TAB PO SCH (17:30)
[2017-10-13] MEDS ORDERED: ATORVASTATIN 20 MG TAB PO ONE (19:58)
[2017-10-13] MEDS ORDERED: ENOXAPARIN SODIUM 40 MG/0.4 ML SYG SUBCU ONE (19:59)
[2017-10-13] MEDS: ATORVASTATIN 20 MG TAB PO SCH (20:38)
[2017-10-13] MEDS: traZODone HCL 50 MG TAB PO PRN (20:38)
[2017-10-13] MEDS: ENOXAPARIN SODIUM 40 MG/0.4 ML SYG SUBCU SCH (20:39)
[2017-10-13] MEDS: IV SET AND CAP CHANGE INJ INJ SCH (20:40)
[2017-10-13] MEDS: INSULIN DETEMIR 100 UNITS/ML PEN SUBCU SCH (21:17)
[2017-10-14] MEDS: PANTOPRAZOLE SODIUM IV 40 MG VIAL IV SCH (06:01)
[2017-10-14] MEDS: AMOXICILLIN & POT CLAVULANATE 500MG TAB PO SCH ×3 (06:32→23:00)
[2017-10-14] MEDS: INSULIN LISPRO 100 UNITS/ML PEN SUBCU SCH ×4 (07:13→21:13)
[2017-10-14] MEDS: METOPROLOL TARTRATE 50 MG TAB PO SCH ×2 (08:30→17:08)
[2017-10-14] MEDS: POTASSIUM CHLORIDE 10 MEQ TAB PO SCH (08:30)
[2017-10-14] MEDS: GLIMEPIRIDE 2 MG TAB PO SCH ×2 (08:30→17:08)
[2017-10-14] MEDS: metFORMIN HCL 500 MG TAB PO SCH ×2 (08:30→17:08)
[2017-10-14] MEDS: DULoxetine HCL 30 MG CAP PO SCH (08:32)
[2017-10-14] MEDS: ASPIRIN TABLET 325 MG TAB PO SCH (08:32)
[2017-10-14] MEDS: GABAPENTIN 300 MG CAP PO SCH ×5 (08:36→21:12)
[2017-10-14] MEDS: SODIUM CHLORIDE 0.9% (FLUSH) 10 ML SYG IV SCH ×2 (08:37→21:25)
[2017-10-14] MEDS: INSULIN DETEMIR 100 UNITS/ML PEN SUBCU SCH ×2 (08:39→21:14)
[2017-10-14] MEDS: ALLOPURINOL 300 MG TAB PO SCH (08:46)
[2017-10-14] MEDS: MELOXICAM 7.5 MG TAB PO SCH (08:46)
[2017-10-14] MEDS: ISOSORBIDE MONONITRATE (IMDUR) 30 MG TAB PO SCH (08:47)
[2017-10-14] MEDS ORDERED: HALOPERIDOL LACTATE INJ 5 MG/ML VIAL IM ONE (08:48)
[2017-10-14] MEDS: FUROSEMIDE 40 MG TAB PO SCH (08:51)
[2017-10-14] MEDS: NON-FORMULARY MEDICATION 1 EA MIS (Memantine Hcl [Namenda Xr] 28 MG) PO SCH (09:02)
[2017-10-14] MEDS: LEVOTHYROXINE SODIUM 0.1 MG TAB PO SCH (09:45)
[2017-10-14] MEDS ORDERED: POTASSIUM CHLORIDE 20 MEQ TAB PO ONE (10:00)
[2017-10-14] MEDS ORDERED: POTASSIUM CHLORIDE 20 MEQ TAB ONE (11:29)
--- NOTE | 2017-10-14 12:59 | PN ---
DATE: 10/14/17 SUPERVISING PHYSICIAN: Fabian Gipson M.D. SUBJECTIVE: The patient is sitting in her chair in her hospital room. She feels much better than she did earlier today. She admitted that she was very confused. She did not know family members' names and saw people that were under her bed and coming out of the reed. She was very disoriented. She was given some Haldol and she is much improved. OBJECTIVE: VITAL SIGNS: She is afebrile, heart rate 62, blood pressure 119/83, respiratory rate 16, O2 sat is 91% on room air. RESPIRATORY: Essentially clear to auscultation bilaterally. CARDIAC: Regular rate and rhythm. ABDOMEN: Soft, nondistended, non-tender. bowel sounds are positive. EXTREMITIES: No cyanosis , clubbing or edema. NEUROLOGIC: She is awake, alert and oriented times three. She does have some left sided residual weakness from a stroke many years ago. No vision changes. LABORATORY: Sodium 141, potassium is slightly low at 3.2 with chloride 106, carbon dioxide 29, BUN 16, creatinine 0.62, blood sugar 114. WBCs are 11,600 with hemoglobin 13, hematocrit 39.7. Preliminary urine culture shows gram- negative rods. All other labs and films have been reviewed via the EMR. ASSESSMENT: 1. Transient ischemic attack with mild visual disturbances, dizziness and weakness that is improving. 2. Urinary tract infection with Escherichia coli on preliminary cultures presently on Augmentin. 3. Acute mental status change while in the hospital that resolved with some Haldol. She did not recognize family members and saw people in her room that were not there. 4. Diabetes mellitus type 2. 5. 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 Johnson in [place]. She is scheduled for bilateral cataract surgery in November as well as a corneal transplant. 6. History of 3 cerebrovascular accidents with some residual left sided weakness. 7. Hypothyroidism. 8. Hypertension. 9. Congestive heart failure with unknown etiology. 10. Mild hypokalemia. 11. Hyperglycemia that has improved that was most likely due to her Decadron administration in the Emergency Room due to anaphylactic reaction to Rocephin. PLAN: She was to be discharged this morning but due to her hallucinations this morning we will keep her in the hospital for 1 more day. Her sensitivities on her urine culture will not be ready for in the morning. We need to reevaluate the cause of her mental status change if it could be due to her urinary tract infection and we will reevaluate that. I have also consulted Stock [employer] as the patient lives alone and I am not sure that she has home health. I have also consulted Physical Therapy to make sure she is safe when she goes home. I have given her an additional dose of potassium today and we will recheck her labs in the morning. I do not note that there are any new medications that have been restarted except for Augmentin and she has taken that in the past without problems. Otherwise we will continue to monitor closely and follow as needed. Dr. Gipson is the collaborating physician available for consultation. #[id number] [facility]
--- NOTE | 2017-10-14 17:51 | PCM.CORE ---
Physician DVT/VTE - Prophylaxis Currently: Patient already on anticoagulation therapy - Nurse DVT Assessment & Total Each Risk Factor Represents 3 Points: Medical PT with Hx of [place], CHF, Severe infection/sepsis Each Risk Factor Represents 2 Points: Age 60-74 Each Risk Factor is 1 Point: Obesity (BMI >25) DVT Assessment Score: 6 - 5 or more Very High Risk Treatments: Early Ambulation *, Sequential Compression Device
[2017-10-14] MEDS: ATORVASTATIN 20 MG TAB PO SCH (21:12)
[2017-10-14] MEDS: ENOXAPARIN SODIUM 40 MG/0.4 ML SYG SUBCU SCH (21:12)
[2017-10-15] MEDS: LEVOTHYROXINE SODIUM 0.1 MG TAB PO SCH (06:03)
[2017-10-15] MEDS: SODIUM CHLORIDE 0.9% (FLUSH) 10 ML SYG IV PRN (06:03)
[2017-10-15] MEDS: PANTOPRAZOLE SODIUM IV 40 MG VIAL IV SCH (06:04)
[2017-10-15] MEDS: AMOXICILLIN & POT CLAVULANATE 500MG TAB PO SCH (06:31)
[2017-10-15] MEDS: INSULIN LISPRO 100 UNITS/ML PEN SUBCU SCH ×3 (07:30→17:18)
[2017-10-15] MEDS: METOPROLOL TARTRATE 50 MG TAB PO SCH ×2 (08:34→17:18)
[2017-10-15] MEDS: metFORMIN HCL 500 MG TAB PO SCH ×2 (08:34→17:18)
[2017-10-15] MEDS: POTASSIUM CHLORIDE 10 MEQ TAB PO SCH (08:34)
[2017-10-15] MEDS: GLIMEPIRIDE 2 MG TAB PO SCH ×2 (08:34→17:18)
[2017-10-15] MEDS: ASPIRIN TABLET 325 MG TAB PO SCH (09:18)
[2017-10-15] MEDS: DULoxetine HCL 30 MG CAP PO SCH (09:18)
[2017-10-15] MEDS: GABAPENTIN 300 MG CAP PO SCH ×3 (09:18→21:27)
[2017-10-15] MEDS: BIFIDOBACTERIUM INFANTIS 4 MG CAP PO SCH ×2 (09:18→21:27)
[2017-10-15] MEDS: ALLOPURINOL 300 MG TAB PO SCH (09:18)
[2017-10-15] MEDS: ISOSORBIDE MONONITRATE (IMDUR) 30 MG TAB PO SCH (09:19)
[2017-10-15] MEDS: FUROSEMIDE 40 MG TAB PO SCH (09:19)
[2017-10-15] MEDS: MELOXICAM 7.5 MG TAB PO SCH (09:20)
[2017-10-15] MEDS: NON-FORMULARY MEDICATION 1 EA MIS (Memantine Hcl [Namenda Xr] 28 MG) PO SCH (09:22)
[2017-10-15] MEDS: SODIUM CHLORIDE 0.9% (FLUSH) 10 ML SYG IV SCH ×2 (09:22→21:28)
[2017-10-15] MEDS: INSULIN DETEMIR 100 UNITS/ML PEN SUBCU SCH (09:24)
[2017-10-15] MEDS ORDERED: MEROPENEM 1 GM VIAL IVPB ONE ×2 (10:16→15:27)
[2017-10-15] MEDS ORDERED: SODIUM CHL 0.9% 50ML MIN-BAG+ 50 ML IVPB ONE ×2 (10:16→15:26)
[2017-10-15] MEDS: MEROPENEM 1 GM in SODIUM CHL 0.9% 50ML MIN-BAG+ 50 ML IVPB SCH ×2 (10:21→17:28)
--- NOTE | 2017-10-15 11:31 | US ---
Study: Bilateral Carotid Artery Doppler Sonogram. Indication: TIA Technique: Multiplanar grayscale and Doppler sonographic images of the bilateral carotid arteries and vertebral arteries were obtained. Findings: The bilateral carotid arteries demonstrate a normal appearance without significant intimal thickening or calcified plaque. Analysis of duplex waveforms and flow velocities indicate no hemodynamically significant stenosis. The vertebral arteries demonstrate antegrade flow. Impression: 1. No hemodynamically significant stenosis of the bilateral carotid arteries. Electronically signed by: Mango Bernstein MD 10/15/2017 11:30 AM [facility]
--- NOTE | 2017-10-15 17:22 | PN ---
DATE: 10/15/17 SUBJECTIVE: The patient in many ways states that she feels a little bit better today. She is less confused and sleepyheaded. Her antibiotics have been changed to a selection that can be specific where it had been the wrong selection up to this point. She has been on Augmentin and she is now changed because of multiple resistances. She is changed to Merrem. The patient has recently had significant hallucinations which have been possibly a side effect of the gram negative infection in her urinary tract. The patient unfortunately possesses multiple allergies including cephalosporins, fluoroquinolones and sulfa medications. She has been on Augmentin which it is resistant to and will require parenteral therapy because of the significant combined failure to improve on the most recent treatment course, but also its significant effect upon her altered level of consciousness. She does live at home alone and is almost completely blind and will require further investigation and followup with Social Service. Physical Therapy has requested to check on her abilities to safely ambulate and to get her a little stronger. She may eventually require Swing Bed rehabilitation but in the meantime she will require a vigorous parenteral course of therapy for the underlying significant infection, especially in the light of her multiple allergies. OBJECTIVE: Afebrile, pulse 68, blood pressure 131/80, pulse oximetry 92% on room air. LUNGS: Have a few rhonchi on the left more than the right. HEART: Tones are regular. The patient is otherwise awake and alert, and is reading. She states that in many ways she feels less confused today. LABORATORY: White count is 12,200. Chemistry shows potassium 4.3, BUN 21, creatinine 0.95, glucose 98. Repeat urinalysis by tomorrow. Culture on the urine does show Escherichia coli with resistance to the Ampicillin preparations and to the Piperacillin, but only sensitive to the Meropenem parenterally since the patient cannot take fluoroquinolones, cephalosporins or sulfa medications. Treatment initiated as of this morning upon receipt of the sensitivity results. Carotid artery ultrasound showed no hemodynamic compromise by stenosis. ASSESSMENT: 1. Transient ischemic attack with mild visual disturbances, dizziness and weakness that is showing some improvement, especially involving the left side with a history of a recent cerebrovascular accident. 2. Acute urinary tract infection with Escherichia coli with resistance to her current treatment course of Augmentin p.o. Multiple allergies preclude selections of other medications more easily given and point towards Meropenem as an effort to treat the underlying gram negative infection and its effect upon her level of consciousness, etc. 3. Acute mental status changes with hallucinations probably as a result of the significant urinary tract infection and toxic effects. 4. Diabetes mellitus type 2. 5. 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 Johnson in [place] scheduled for bilateral cataract surgery as well as a corneal transplant next month. 6. History of repeat cerebrovascular accidents on 3 occasions with some residual left sided weakness treated at [facility] recently. 7. History of hypothyroidism on supplement. 8. Hypertension. 9. Congestive heart failure of unknown etiology. 10. Mild hypokalemia, improved. 11. Hypoglycemia, improved. 12. Recent acute allergic and anaphylactic reaction to Ceftriaxone in the Emergency Room again illustrating the significant allergies the patient possesses. PLAN: The patient is admitted from observational status to inpatient status to continue with at least 3 days of parenteral Meropenem. Then a decision will be made as to whether she requires additional dosings of IV and these can be arranged either as an outpatient or can continue as a Swing Bed status if she requires further rehabilitation and strengthening. That decision to be made. #[id number] [facility]
[2017-10-15] MEDS ORDERED: INSULIN DETEMIR 100 UNITS/ML PEN SUBCU SCH (21:00)
[2017-10-15] MEDS: ATORVASTATIN 20 MG TAB PO SCH (21:27)
[2017-10-15] MEDS: ENOXAPARIN SODIUM 40 MG/0.4 ML SYG SUBCU SCH (21:27)
[2017-10-16] MEDS: INSULIN LISPRO 100 UNITS/ML PEN SUBCU SCH ×5 (01:16→21:49)
[2017-10-16] MEDS ORDERED: MEROPENEM 500 MG VIAL IVPB ONE (03:52)
[2017-10-16] MEDS ORDERED: SODIUM CHLORIDE 0.9% 50ML 50 ML ONE (03:53)
[2017-10-16] MEDS: MEROPENEM 1 GM in SODIUM CHL 0.9% 50ML MIN-BAG+ 50 ML IVPB SCH ×3 (03:58→17:35)
[2017-10-16] MEDS: IV SET AND CAP CHANGE INJ INJ SCH (04:21)
[2017-10-16] MEDS: LEVOTHYROXINE SODIUM 0.1 MG TAB PO SCH (06:31)
[2017-10-16] MEDS: PANTOPRAZOLE SODIUM TAB 40 MG PO SCH (06:31)
[2017-10-16] MEDS: metFORMIN HCL 500 MG TAB PO SCH ×2 (08:25→17:35)
[2017-10-16] MEDS: POTASSIUM CHLORIDE 10 MEQ TAB PO SCH (08:25)
[2017-10-16] MEDS: METOPROLOL TARTRATE 50 MG TAB PO SCH ×2 (08:25→17:35)
[2017-10-16] MEDS: GLIMEPIRIDE 2 MG TAB PO SCH ×2 (08:25→17:35)
[2017-10-16] MEDS ORDERED: SODIUM CHL 0.9% 50ML MIN-BAG+ 50 ML IVPB ONE ×2 (08:52→14:27)
[2017-10-16] MEDS ORDERED: MEROPENEM 1 GM VIAL IVPB ONE ×2 (08:53→14:28)
[2017-10-16] MEDS ORDERED: INSULIN DETEMIR 100 UNITS/ML PEN SUBCU SCH (09:00)
[2017-10-16] MEDS: FUROSEMIDE 40 MG TAB PO SCH (09:45)
[2017-10-16] MEDS: GABAPENTIN 300 MG CAP PO SCH ×3 (09:46→21:38)
[2017-10-16] MEDS: BIFIDOBACTERIUM INFANTIS 4 MG CAP PO SCH ×2 (09:46→21:37)
[2017-10-16] MEDS: DULoxetine HCL 30 MG CAP PO SCH (09:46)
[2017-10-16] MEDS: ASPIRIN TABLET 325 MG TAB PO SCH (09:46)
[2017-10-16] MEDS: MELOXICAM 7.5 MG TAB PO SCH (09:47)
[2017-10-16] MEDS: ALLOPURINOL 300 MG TAB PO SCH (09:47)
[2017-10-16] MEDS: ISOSORBIDE MONONITRATE (IMDUR) 30 MG TAB PO SCH (09:48)
[2017-10-16] MEDS: NON-FORMULARY MEDICATION 1 EA MIS (Memantine Hcl [Namenda Xr] 28 MG) PO SCH (09:48)
[2017-10-16] MEDS: SODIUM CHLORIDE 0.9% (FLUSH) 10 ML SYG IV SCH ×2 (09:48→21:50)
--- NOTE | 2017-10-16 20:48 | PN ---
DATE: 10/16/17 SUBJECTIVE: The patient is having significantly diminished visual acuity. She admits to seeing 2 of most things. When I have her focus on 1 particular item, her left eye tends to deviate strongly laterally thereby strongly giving her the double vision. No doubt she has a better eye on the right but her left eye is the eye that they are planning to do surgery on to correct the thinning of the cornea and the cataract replacement this next month. She has no pain. She has had worsening vision since her stroke last week. She is still having difficulty getting around but she is less confused. Of concern is her vision not as good as it has been in the somewhat distant past. Further evaluation by eye clinic is potentially necessary. She is continuing on IV Meropenem and hopefully will be able to continue the treatment because of the highly resistant nature of the organisms involved with Swing Bed status hopefully by this next . It is of note that she does live alone and to be this blind I feel that it will be of a danger for her to consider going home alone without some significant assistance. Social Service will be able to assist with discharge planning. OBJECTIVE: Her sugars have been low and her Levemir is being reduced accordingly to help cover the glucose without pushing it even lower. Because of her recent symptoms of a transient ischemic attack, a carotid artery ultrasound has been performed and reveals no hemodynamically significant stenosis within the carotid artery system. ASSESSMENT: 1. Transient ischemic attack with mild visual disturbances, dizziness, vertigo and weakness has shown some clinical improvement, yet her vision is still significantly involved. 2. Acute urinary tract infection with Escherichia coli with resistance noted to her current treatment on Augmentin switched to Meropenem and will continue parenterally until good clinical response is noted. This may have contributed to her significant altered level of consciousness and may require continued treatment for a few days on Swing Bed as of morning. 3. Acute mental status changes with hallucinations probably as a result of the significant urinary tract infection and its toxic effects. 4. Diabetes mellitus type 2 with insulin use for control having to significantly adjust down her insulin requirements. 5. 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 Johnson in [place]. Repeat evaluation even sooner may be necessary if significant deterioration in her vision is documented. 6. History of repeat cerebrovascular accidents on 3 occasions with some residual left sided weakness treated at [facility] recently. 7. History of hypothyroidism on supplementation. 8. History of hypertension. 9. History of congestive heart failure of unknown etiology. 10. Mild hypokalemia, improved. 11. Hypoglycemia with adjustment of insulins being performed. 12. Recent acute allergic and anaphylactic reaction to Ceftriaxone in the Emergency Room again illustrating the significant allergies the patient possesses. PLAN: Continue with the Meropenem. Consider Swing Bed status to continue for a few more days of adequate parenteral therapy to assure complete treatment of the underlying urinary tract infection. Consider eye clinic evaluation if a significant change can be further documented. Reevaluate in the morning. #[id number] [facility]
[2017-10-16] MEDS: ENOXAPARIN SODIUM 40 MG/0.4 ML SYG SUBCU SCH (21:38)
[2017-10-16] MEDS: ATORVASTATIN 20 MG TAB PO SCH (21:38)
[2017-10-16] MEDS: traZODone HCL 50 MG TAB PO PRN (21:38)
[2017-10-16] MEDS: INSULIN DETEMIR 100 UNITS/ML PEN SUBCU SCH (21:49)
[2017-10-17] MEDS ORDERED: SODIUM CHL 0.9% 50ML MIN-BAG+ 50 ML IVPB ONE ×3 (01:14→16:01)
[2017-10-17] MEDS ORDERED: MEROPENEM 1 GM VIAL IVPB ONE ×3 (01:14→16:02)
[2017-10-17] MEDS: MEROPENEM 1 GM in SODIUM CHL 0.9% 50ML MIN-BAG+ 50 ML IVPB SCH ×3 (01:40→18:01)
[2017-10-17] MEDS: SODIUM CHLORIDE 0.9% (FLUSH) 10 ML SYG IV PRN (01:41)
[2017-10-17] MEDS: LEVOTHYROXINE SODIUM 0.1 MG TAB PO SCH (06:35)
[2017-10-17] MEDS: PANTOPRAZOLE SODIUM TAB 40 MG PO SCH (06:35)
[2017-10-17] MEDS: INSULIN LISPRO 100 UNITS/ML PEN SUBCU SCH ×4 (08:17→21:28)
[2017-10-17] MEDS: ISOSORBIDE MONONITRATE (IMDUR) 30 MG TAB PO SCH (08:50)
[2017-10-17] MEDS: ASPIRIN TABLET 325 MG TAB PO SCH (08:50)
[2017-10-17] MEDS: metFORMIN HCL 500 MG TAB PO SCH ×2 (08:50→17:09)
[2017-10-17] MEDS: MELOXICAM 7.5 MG TAB PO SCH (08:51)
[2017-10-17] MEDS: POTASSIUM CHLORIDE 10 MEQ TAB PO SCH (08:51)
[2017-10-17] MEDS: BIFIDOBACTERIUM INFANTIS 4 MG CAP PO SCH ×2 (08:52→21:30)
[2017-10-17] MEDS: SODIUM CHLORIDE 0.9% (FLUSH) 10 ML SYG IV SCH ×2 (08:52→21:27)
[2017-10-17] MEDS: ALLOPURINOL 300 MG TAB PO SCH (08:52)
[2017-10-17] MEDS: FUROSEMIDE 40 MG TAB PO SCH (08:52)
[2017-10-17] MEDS: GLIMEPIRIDE 2 MG TAB PO SCH ×2 (08:52→17:09)
[2017-10-17] MEDS: METOPROLOL TARTRATE 50 MG TAB PO SCH ×2 (08:52→17:09)
[2017-10-17] MEDS: DULoxetine HCL 30 MG CAP PO SCH (08:53)
[2017-10-17] MEDS: NON-FORMULARY MEDICATION 1 EA MIS (Memantine Hcl [Namenda Xr] 28 MG) PO SCH (08:53)
[2017-10-17] MEDS: INSULIN DETEMIR 100 UNITS/ML PEN SUBCU SCH ×2 (10:07→21:28)
[2017-10-17] MEDS: GABAPENTIN 300 MG CAP PO SCH ×3 (10:11→21:26)
--- NOTE | 2017-10-17 21:02 | PN ---
DATE: 10/17/17 SUPERVISING PHYSICIAN: Garcia Wong M.D. SUBJECTIVE: The patient notes that she is still having some blurred vision but not as bad as she had in the last several days. She has had no nausea or vomiting and is feeling much improved compared to admission, but is significantly weakened. OBJECTIVE: VITAL SIGNS: T max 98.3, pulse 66, blood pressure 112/73, respirations 18, satting 95% on room air. I's and O's show a negative balance of 610 with 790 in, 1400 out. She has had 1 bowel movement today. Weight is 109.6 kg. CHEST: Lungs are clear to auscultation just diminished slightly towards the bases. HEART: Regular rate and rhythm. ABDOMEN: Obese but soft, non-tender. Positive bowel sounds. EXTREMITIES: No clubbing, cyanosis or edema. NEUROLOGIC: She was alert and oriented times three. LABORATORY: No additional laboratory other than blood sugars have been repeat since 10/15/17. Her blood sugars have been fairly stable between 87 and 179. MICROBIOLOGY: Again the final culture on urine showed Escherichia coli that was fairly sensitive with the patient being allergic to multiple antibiotics to include sulfa drugs, cephalosporins as well as Levofloxacin. The patient remains on Meropenem. RADIOLOGY: No additional radiographic studies were completed. ASSESSMENT: 1. Transient ischemic attacks with some mild visual disturbances, including dizziness and vertigo along with weakness continuing to show improvement. 2. Acute urinary tract infection with Escherichia coli resistant noted to her current treatment previously on Augmentin having the patient switch to Meropenem due to multiple allergies to other antibiotics, including cephalosporins, fluoroquinolones and sulfa drugs with the patient continuing to show good clinical response felt to have contributed to her previous altered level of consciousness requiring multiple additional days on antibiotic therapy along with physical therapy to continue treatment on Swing Bed anticipating morning. 3. Acute mental status change with hallucinations probably resulted from significant urinary tract infection and underlying metabolic encephalopathy. 4. Diabetes mellitus type 2 with insulin with good control after adjusting insulin requirements. 5. 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 Johnson in [place]. Repeat evaluation and followup is warranted once discharged from Swing Bed due to the patient's acute deterioration of vision on Acute Care as noted. 6. History of repeat cerebrovascular accidents on 3 occasions with some residual left sided weakness treated previously at the [facility] in [place]. 7. History of hypothyroidism on supplementation. 8. History of hypertension. 9. History of congestive heart failure of unknown etiology with no echocardiogram for review. 10. Mild hypokalemia, improved with fluids. 11. Hypoglycemia, resolved after adjustment of insulin regimen. 12. Recent allergic and anaphylactic reaction to cephalosporin to include Ceftriaxone. PLAN: Will continue with parenteral antibiotics as noted with Meropenem with anticipation of discharging tomorrow to Swing Bed for continuation of additional days for adequate parenteral treatment of underlying urinary tract infection and ongoing reconditioning secondary to deconditioning. Again, consideration for eye evaluation in the near future is warranted once the patient is discharged to be arranged through Dr. Holloway' office. Until then, will continue to monitor and treat appropriately. #[id number] [facility]
[2017-10-17] MEDS: ATORVASTATIN 20 MG TAB PO SCH (21:26)
[2017-10-17] MEDS: traZODone HCL 50 MG TAB PO PRN (21:26)
[2017-10-17] MEDS: ENOXAPARIN SODIUM 40 MG/0.4 ML SYG SUBCU SCH (21:26)
[2017-10-18] MEDS ORDERED: MEROPENEM 1 GM VIAL IVPB ONE ×3 (01:38→17:48)
[2017-10-18] MEDS ORDERED: SODIUM CHL 0.9% 50ML MIN-BAG+ 50 ML IVPB ONE ×3 (01:38→17:47)
[2017-10-18] MEDS: MEROPENEM 1 GM in SODIUM CHL 0.9% 50ML MIN-BAG+ 50 ML IVPB SCH ×3 (01:39→17:53)
[2017-10-18] MEDS: SODIUM CHLORIDE 0.9% (FLUSH) 10 ML SYG IV PRN (01:40)
[2017-10-18] MEDS: LEVOTHYROXINE SODIUM 0.1 MG TAB PO SCH (06:07)
[2017-10-18] MEDS: PANTOPRAZOLE SODIUM TAB 40 MG PO SCH (06:07)
[2017-10-18] MEDS: INSULIN LISPRO 100 UNITS/ML PEN SUBCU SCH ×3 (07:59→17:44)
[2017-10-18] MEDS: GLIMEPIRIDE 2 MG TAB PO SCH ×2 (08:23→17:52)
[2017-10-18] MEDS: MELOXICAM 7.5 MG TAB PO SCH (08:23)
[2017-10-18] MEDS: metFORMIN HCL 500 MG TAB PO SCH ×2 (08:23→17:53)
[2017-10-18] MEDS: ASPIRIN TABLET 325 MG TAB PO SCH (08:24)
[2017-10-18] MEDS: BIFIDOBACTERIUM INFANTIS 4 MG CAP PO SCH (08:24)
[2017-10-18] MEDS: POTASSIUM CHLORIDE 10 MEQ TAB PO SCH (08:24)
[2017-10-18] MEDS: DULoxetine HCL 30 MG CAP PO SCH (08:24)
[2017-10-18] MEDS: GABAPENTIN 300 MG CAP PO SCH ×2 (08:24→16:03)
[2017-10-18] MEDS: METOPROLOL TARTRATE 50 MG TAB PO SCH ×2 (08:24→17:53)
[2017-10-18] MEDS: FUROSEMIDE 40 MG TAB PO SCH (08:25)
[2017-10-18] MEDS: ISOSORBIDE MONONITRATE (IMDUR) 30 MG TAB PO SCH (08:25)
[2017-10-18] MEDS: NON-FORMULARY MEDICATION 1 EA MIS (Memantine Hcl [Namenda Xr] 28 MG) PO SCH (08:26)
[2017-10-18] MEDS: ALLOPURINOL 300 MG TAB PO SCH (08:26)
[2017-10-18] MEDS: SODIUM CHLORIDE 0.9% (FLUSH) 10 ML SYG IV SCH (08:26)
[2017-10-18] MEDS: INSULIN DETEMIR 100 UNITS/ML PEN SUBCU SCH (09:03)
[2017-10-18 09:56] VITALS: O2SAT 93
[2017-10-18 13:37] VITALS: BP 165/84; TEMP 97
[2017-10-18] MEDS ORDERED: metFORMIN HCL 500 MG TAB ONE (17:47)
[2017-10-18] MEDS ORDERED: GLIMEPIRIDE 2 MG TAB ONE (17:47)
[2017-10-18] MEDS ORDERED: METOPROLOL TARTRATE 50 MG TAB ONE (17:47)
--- NOTE | 2017-10-19 10:21 | DS ---
SUPERVISING PHYSICIAN: Garcia Wong MD DISCHARGE DIAGNOSIS: 1. Previous transient ischemic attack with mild visual disturbances, dizziness , vertigo and weakness, continues to show improvement, but requires ongoing physical therapy and rehabilitation and admission to Swing Bed. 2. Acute urinary tract infection with final culture showing Escherichia coli with resistance noted to be fairly mild, but the patient has previous allergies and has been on Augmentin in the past and was switched to meropenem due to multiple allergies including cephalosporins, fluoroquinolones, sulfa drugs with the patient continuing to need ongoing therapy for at least four more days for a total treatment course of seven days. 3. Past history of acute mental status changes with hallucinations felt to be secondary to underlying urinary tract infection from underlying metabolic encephalopathy, improved with antibiotics. 4. Diabetes mellitus, type 2, with insulin with good control. 5. 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 Johnson in [place]. Repeat evaluation warranted once discharged. 6. History of repeat cerebrovascular accidents on three occasions with some residual left sided weakness treated at [facility]. 7. Hypothyroidism on supplementation. 8. History of hypertension. 9. History of congestive heart failure of unknown etiology with no echocardiogram for review with no evidence of exacerbation. 10. Mild hypokalemia on Acute Care, improved with fluids with laboratory results pending. 11. Recent allergic anaphylactic reaction to cephalosporins in the Emergency Room to include ceftriaxone. REASON FOR HOSPITALIZATION: Ms. Villanueva is a 72-year-old female patient who initially was brought into the Emergency Room on 10/12/17 after she was feeling dizzy and having double vision and seeing halos. She also had a very unsteady gait and was unable to walk even using her walker. In the Emergency Room, she continued to have some mild visual disturbances but eventually her vision corrected to baseline while she was in the Emergency Room. In the past, she has seen Dr. De La O, but she no longer sees him and she has complex migraines as well as some visual problems. She is scheduled for cataract surgery as well as a corneal transplant in November. She also has a history of visual migraines. A CT of the head was done and per radiology interpretation showed no acute intracranial abnormalities, most likely small vessel ischemic changes, age is indeterminate. It was noted on her urine that she had a significant urinary tract infection with her culture results on Acute Care showing E. coli that was fairly sensitive, but given the patient's multiple antibiotic allergies, the patient was started on meropenem while on Acute Care. It was noted that she was given Rocephin initially in the Emergency Department which resulted in some diaphoresis and shortness of breath. Therefore, she was noted to have allergy to cephalosporins and was put on meropenem for continuation of treatment. Neurologically while on Acute Care, the patient had shown good improvement, but given the underlying urinary tract infection and some ongoing muscle weakness and deconditioning, it was felt the patient would benefit from ongoing continuation of therapy for additional four days for total completion of treatment at seven days of antibiotic therapy and physical therapy. To prevent the patient from having any difficult with discharge and having falls, the patient now is going to be admitted to Swing Bed for, again, parenteral antibiotic with meropenem for an additional four days and ongoing physical therapy and rehabilitation for deconditioning. She was admitted to Swing Bed in stable condition. LABORATORY: Initial laboratory studies showed a white count of 10,600. She had a persistent leukocytosis and on 10/18/17, last laboratory studies showed white count 12,200 with no left shift noted. Hemoglobin and hematocrit were stable and at discharge were 14.6 and 44.2 with platelet count 182,000. Chemistries initially on admission showed normal electrolytes. However, her potassium did go up to 5.2. Sodium initially dropped to 134. Initial glucose on admission was 427, but her anion gap was normal at 14 and carbon dioxide 124. Liver functions were within normal limits. TSH was normal at 1.4. After readjustment of her medications and adjustment of her insulin and initiation of treatment, her electrolytes normalized. Last labs for electrolytes were noted to be on 10/15/17 with normal electrolytes with potassium of 4.3. Blood sugars were better controlled and ranged from 48 to 195. Calcium normal at 9.0. Urinalysis showed 500 glucose, trace lysed blood with microscopic revealing 10 to 20 RBCs with greater than 100 WBCs and 3+ bacteria. MICROBIOLOGY: On Acute Care, urine culture was positive for E. coli which was resistant to ampicillin and piperacillin. Please see that report for full details. RADIOLOGY: CT of the head initially on 10/12/17 per radiologic interpretation there were acute intracranial abnormalities, nonspecific white matter changes, most likely small vessel ischemic changes indeterminate. She also had a carotid artery ultrasound completed and per radiologic interpretation there was no hemodynamically significant stenosis of bilateral carotid arteries. HOSPITAL COURSE: MS. Villanueva was admitted as noted in her reason for hospitalization with an underlying urinary tract infection with some mental status change. After initiation of antibiotic therapy with meropenem after she had an allergic reaction in the Emergency Room with ceftriaxone and also has multiple allergies to levofloxacin and sulfa drugs, after a length of time with meropenem, the patient had shown good results and had returned back to her baseline mental status. She was actually able to ambulate with a walker and physical therapy although she continued to show some weakness. She remained on meropenem through the hospitalization for the course of treatment to continue with treatment in Swing Bed setting. It was felt that she had progressed clinically to the point where she could be continued in the Swing Bed setting. PLAN: The patient is discharged from Acute Care and admitted to Swing Bed on for continuation of antibiotic therapy with meropenem for additional four days for completion of treatment as well as for physical therapy for reconditioning and rehabilitation to ensure the patient's safety at time of discharge. DIET AT DISCHARGE: Diabetic diet as on Acute Care. MEDICATIONS: Continue as on Acute Care. Please see that updated medical list. CONDITION AT DISCHARGE: Stable and improved. #[id number] [facility]
== END 2017-10-18 17:43 | disposition swing bed (61) | DRG 69 ==
LOC: ER 17:17 → UNDOADMIN 22:15 → MS 22:15
PROVIDERS: ADMIT Nurse Practitioner Acute Care; ATTEND Nurse Practitioner Acute Care
DX: G45.9 Transient cerebral ischemic attack, unspecified (principal); G92 Toxic encephalopathy; N39.0 Urinary tract infection, site not specified; I69.354 Hemiplegia and hemiparesis following cerebral infarction affecting left non-dominant side; H18.40 Unspecified corneal degeneration; E03.9 Hypothyroidism, unspecified; I11.0 Hypertensive heart disease with heart failure; I50.9 Heart failure, unspecified; E11.65 Type 2 diabetes mellitus with hyperglycemia; T38.0X5A Adverse effect of glucocorticoids and synthetic analogues, initial encounter; T36.1X5A Adverse effect of cephalosporins and other beta-lactam antibiotics, initial encounter; Y92.238 Other place in hospital as the place of occurrence of the external cause; B96.20 Unspecified Escherichia coli [E. coli] as the cause of diseases classified elsewhere; R44.1 Visual hallucinations; E87.6 Hypokalemia; E11.649 Type 2 diabetes mellitus with hypoglycemia without coma; H53.8 Other visual disturbances; Z16.30 Resistance to unspecified antimicrobial drugs; Z60.2 Problems related to living alone; Z88.2 Allergy status to sulfonamides; Z88.1 Allergy status to other antibiotic agents; Z91.048 Other nonmedicinal substance allergy status; Z79.82 Long term (current) use of aspirin; Z79.4 Long term (current) use of insulin; Z79.84 Long term (current) use of oral hypoglycemic drugs; Z79.899 Other long term (current) drug therapy

== ENCOUNTER 2017-10-18 17:47 | Inpatient (IN) | payer MEDICARE ==
[2017-10-18] MEDS ORDERED: SODIUM PHOS/BIPHOS ENEMA ADULT 133 ML BTTL PR PRN (17:55)
[2017-10-18] MEDS ORDERED: MAGNESIUM HYDROXIDE 30 ML UD PO PRN (17:55)
[2017-10-18] MEDS ORDERED: ACETAMINOPHEN 500 MG TAB PO PRN (17:55)
[2017-10-18] MEDS ORDERED: GLUCAGON INJ 1 MG VIAL SUBCU PRN (18:06)
[2017-10-18] MEDS ORDERED: SODIUM CHLORIDE 0.9% (FLUSH) 10 ML SYG IV PRN (18:06)
[2017-10-18] MEDS ORDERED: DEXTROSE 50% 25 GM/50 ML SYG IV PRN (18:06)
[2017-10-18] MEDS ORDERED: traMADol HCL 50 MG TAB PO PRN (18:13)
[2017-10-18] MEDS ORDERED: MECLIZINE HCL 12.5 MG TAB PO PRN (18:13)
[2017-10-18] MEDS ORDERED: CYCLOBENZAPRINE HCL 10 MG TAB PO PRN (18:13)
[2017-10-18] MEDS ORDERED: HYDROcodone 5MG/APAP 325MG 1 EA TAB PO PRN (18:13)
[2017-10-18] MEDS: IV SET AND CAP CHANGE INJ INJ SCH (19:26)
[2017-10-18] MEDS ORDERED: GLIMEPIRIDE 2 MG TAB ONE (19:49)
[2017-10-18] MEDS ORDERED: SODIUM CHL 0.9% 50ML MIN-BAG+ 50 ML IVPB ONE (19:50)
[2017-10-18] MEDS ORDERED: MEROPENEM 1 GM VIAL IVPB ONE (19:51)
[2017-10-18] MEDS: BIFIDOBACTERIUM INFANTIS 4 MG CAP PO SCH (20:56)
[2017-10-18] MEDS ORDERED: METOPROLOL TARTRATE 50 MG TAB PO SCH (21:00)
[2017-10-18] MEDS ORDERED: INSULIN DETEMIR 100 UNITS/ML PEN SUBCU SCH (21:00)
[2017-10-18] MEDS ORDERED: metFORMIN HCL 500 MG TAB PO SCH (21:00)
[2017-10-18] MEDS: GABAPENTIN 300 MG CAP PO SCH (21:00)
[2017-10-18] MEDS ORDERED: RANITIDINE HCL 75 MG PO SCH (21:00)
[2017-10-18] MEDS ORDERED: NON-FORMULARY MEDICATION 1 EA MIS (Glimepiride [Glimepiride] 4 MG) PO SCH (21:00)
[2017-10-18] MEDS: SODIUM CHLORIDE 0.9% (FLUSH) 10 ML SYG IV SCH (21:05)
[2017-10-18] MEDS: INSULIN LISPRO 100 UNITS/ML PEN SUBCU SCH (21:07)
--- NOTE | 2017-10-18 21:38 | PCM.CORE ---
Physician DVT/VTE - Nurse DVT Assessment & Total Each Risk Factor Represents 5 Points: Stroke < 1 month Each Risk Factor Represents 3 Points: Medical PT with Hx of [place], CHF, Severe infection/sepsis Each Risk Factor Represents 2 Points: Age 60-74 Each Risk Factor is 1 Point: Obesity (BMI >25) DVT Assessment Score: 11 - 5 or more Very High Risk Treatments: Early Ambulation *, Sequential Compression Device Pharmacological: Enoxaparin 40mg SQ Daily
[2017-10-18] MEDS ORDERED: ENOXAPARIN SODIUM 40 MG/0.4 ML SYG SUBCU SCH (22:00)
[2017-10-19] MEDS ORDERED: MEROPENEM 1 GM VIAL IVPB SCH (02:00)
[2017-10-19] MEDS: MEROPENEM 1 GM in SODIUM CHL 0.9% 50ML MIN-BAG+ 50 ML IVPB SCH ×3 (02:21→17:50)
[2017-10-19] MEDS: INSULIN LISPRO 100 UNITS/ML PEN SUBCU SCH ×4 (07:58→21:06)
--- NOTE | 2017-10-19 08:09 | HP ---
SUPERVISING PHYSICIAN: Garcia Wong MD REASON FOR ADMISSION TO SWING BED: Strengthening and antibiotic therapy. HISTORY OF PRESENT ILLNESS: Ms. Villanueva is a 72-year-old female patient who initially was brought into the Emergency Room on 10/12/17 after she was feeling dizzy and having double vision and seeing halos. She also had a very unsteady gait and was unable to walk even using her walker. In the Emergency Room, she continued to have some mild visual disturbances but eventually her vision corrected to baseline while she was in the Emergency Room. In the past, she has seen Dr. De La O, but she no longer sees him and she has complex migraines as well as some visual problems. She is scheduled for cataract surgery as well as a corneal transplant in November. She also has a history of visual migraines. A CT of the head was done and per radiology interpretation showed no acute intracranial abnormalities, most likely small vessel ischemic changes, age is indeterminate. It was noted on her urine that she had a significant urinary tract infection with her culture results on Acute Care showing E. coli that was fairly sensitive, but given the patient's multiple antibiotic allergies, the patient was started on meropenem while on Acute Care. It was noted that she was given Rocephin initially in the Emergency Department which resulted in some diaphoresis and shortness of breath. Therefore, she was noted to have allergy to cephalosporins and was put on meropenem for continuation of treatment. Neurologically while on Acute Care, the patient had shown good improvement, but given the underlying urinary tract infection and some ongoing muscle weakness and deconditioning, it was felt the patient would benefit from ongoing continuation of therapy for additional four days for total completion of treatment at seven days of antibiotic therapy and physical therapy. To prevent the patient from having any difficult with discharge and having falls, the patient now is going to be admitted to Swing Bed for, again, parenteral antibiotic with meropenem for an additional four days and ongoing physical therapy and rehabilitation for deconditioning. She was admitted to Swing Bed in stable condition. PAST MEDICAL HISTORY: 1. Hypothyroidism. 2. 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 3. Coronary artery disease. 4. Congestive heart failure of unknown etiology. 5. Diabetes mellitus, type 2. 6. Hypertension. 7. Hyperlipidemia. 8. Reactive airways disease. 9. Gout. 10. Obstructive sleep apnea with CPAP at home. PAST SURGICAL HISTORY: 1. Appendectomy. 2. Unilateral oophorectomy. 3. Complete hysterectomy. 4. Cholecystectomy. HOME MEDICATIONS: Please see an update list in the electronic medical record of verified home medications. ALLERGIES: IODINE, FLUOROQUINOLONES, CEPHALOSPORINS, SULFA, REGLAN, ADHESIVE TAPE. FAMILY HISTORY: Positive for pneumonia, cerebrovascular accident, deep venous thrombosis and heart problems. SOCIAL HISTORY: She is retired, she is . She has no children. She denies any alcohol or illicit drug use. She has never smoked. REVIEW OF SYSTEMS: CONSTITUTIONAL: Negative for fever, chills or weight changes. HEENT: As noted in history of present illness, some visual disturbances, which have resolved to her baseline vision, but denies any sinus, ear or sore throat. RESPIRATORY: Negative for shortness of breath, coughing or wheezing. CARDIAC: Negative for chest pain, tachycardia or palpitations. GASTROINTESTINAL: Negative for nausea, vomiting or diarrhea or constipation. GENITOURINARY: Negative for dysuria, polyuria or hematuria. NEUROLOGIC: As per previous history and physical noted, past visual disturbances that have essentially resolved with a past history of right sided weakness although not detectable at this point. She denies any syncopal episodes, dizziness or headaches. PHYSICAL EXAMINATION: VITAL SIGNS: Temperature 96.4. Pulse 90. Blood pressure 152/88. Respirations 18. Saturation 96% on room air. Admission weight 107.1 kg. GENERAL: The patient appears to be in no acute distress, resting comfortably. She is alert and oriented times three. HEENT: Temporalis clear bilaterally. Oropharynx is pink, moist with no lesions. NECK: Supple, nontender with full range of motion. There is no jugular venous distention. CHEST: Clear to auscultation bilaterally without any rhonchi, wheezing or rales, just slightly diminished towards the bases. ABDOMEN: Obese, but soft, nontender with positive bowel sounds. EXTREMITIES: No cyanosis, clubbing or edema. NEUROLOGIC: The patient is alert and oriented times three. Cranial nerves II- XII are grossly intact. Facial features are symmetrical. Extraocular movements are within normal limits. There is no nystagmus noted. LABORATORY: CBC and BMP are pending. RADIOLOGY: There are no radiographic studies pending. ASSESSMENT: 1. Previous transient ischemic attack with mild visual disturbances, dizziness , vertigo and weakness, continues to show improvement, but requires ongoing physical therapy and rehabilitation and admission to Swing Bed. 2. Acute urinary tract infection with final culture showing Escherichia coli with resistance noted to be fairly mild, but the patient has previous allergies and has been on Augmentin in the past and was switched to meropenem due to multiple allergies including cephalosporins, fluoroquinolones, sulfa drugs with the patient continuing to need ongoing therapy for at least four more days for a total treatment course of seven days. 3. Past history of acute mental status changes with hallucinations felt to be secondary to underlying urinary tract infection from underlying metabolic encephalopathy, improved with antibiotics. 4. Diabetes mellitus, type 2, with insulin with good control. 5. 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 Johnson in [place]. Repeat evaluation warranted once discharged. 6. History of repeat cerebrovascular accidents on three occasions with some residual left sided weakness treated at [facility]. 7. Hypothyroidism on supplementation. 8. History of hypertension. 9. History of congestive heart failure of unknown etiology with no echocardiogram for review with no evidence of exacerbation. 10. Mild hypokalemia on Acute Care, improved with fluids with laboratory results pending. 11. Recent allergic anaphylactic reaction to cephalosporins in the Emergency Room to include ceftriaxone. 12. Leukocytosis persistent secondary to UTI PLAN: The patient will be admitted to Swing Bed for ongoing physical therapy for deconditioning and continued antibiotic therapy with meropenem for a treatment course of seven days, which will include four additional days of antibiotics while on Swing Bed. At the end of her Swing Bed course, a repeat urinalysis is warranted to further assess completion of treatment. Until then, we will continue to monitor the patient closely and treat appropriately. Once she is discharged, she will need close clinical followup with Dr. Holloway for additional eye evaluations in the future. #[id number] [facility]
[2017-10-19] MEDS: SODIUM CHLORIDE 0.9% (FLUSH) 10 ML SYG IV SCH ×2 (10:00→21:05)
[2017-10-19] MEDS ORDERED: SODIUM CHL 0.9% 50ML MIN-BAG+ 50 ML IVPB ONE ×2 (10:07→17:45)
[2017-10-19] MEDS ORDERED: MEROPENEM 1 GM VIAL IVPB ONE ×2 (10:09→17:46)
[2017-10-19] MEDS: metFORMIN HCL 500 MG TAB PO SCH ×2 (10:30→17:52)
[2017-10-19] MEDS: METOPROLOL TARTRATE 50 MG TAB PO SCH ×2 (10:30→17:51)
[2017-10-19] MEDS: ASPIRIN EC 81 MG TAB PO SCH (10:30)
[2017-10-19] MEDS: GABAPENTIN 300 MG CAP PO SCH ×3 (10:32→20:27)
[2017-10-19] MEDS: POTASSIUM CHLORIDE 10 MEQ TAB PO SCH (10:33)
[2017-10-19] MEDS: MELOXICAM 7.5 MG TAB PO SCH (10:33)
[2017-10-19] MEDS: ATORVASTATIN 20 MG TAB PO SCH (10:34)
[2017-10-19] MEDS: CYANOCOBALAMIN 1,000 MCG TAB PO SCH (10:34)
[2017-10-19] MEDS: GLIMEPIRIDE 2 MG TAB PO SCH ×2 (10:34→16:52)
[2017-10-19] MEDS: FUROSEMIDE 40 MG TAB PO SCH (10:35)
[2017-10-19] MEDS: BIFIDOBACTERIUM INFANTIS 4 MG CAP PO SCH ×2 (10:47→20:27)
[2017-10-19] MEDS: ISOSORBIDE MONONITRATE (IMDUR) 30 MG TAB PO SCH (10:47)
[2017-10-19] MEDS: DOCUSATE SODIUM 100 MG CAP PO SCH (10:47)
[2017-10-19] MEDS: DULoxetine HCL 30 MG CAP PO SCH (10:48)
[2017-10-19] MEDS: INSULIN DETEMIR 100 UNITS/ML PEN SUBCU SCH ×2 (10:48→21:06)
[2017-10-19] MEDS: NON-FORMULARY MEDICATION 1 EA MIS (Memantine Hcl [Namenda Xr] 28 MG) PO SCH (11:15)
[2017-10-19] MEDS: LEVOTHYROXINE SODIUM 0.1 MG TAB PO SCH (11:16)
[2017-10-19] MEDS: ALLOPURINOL 300 MG TAB PO SCH (11:17)
[2017-10-19] MEDS ORDERED: ENOXAPARIN SODIUM 40 MG/0.4 ML SYG SUBCU ONE (19:40)
[2017-10-19] MEDS: ENOXAPARIN SODIUM 40 MG/0.4 ML SYG SUBCU SCH (20:27)
[2017-10-20] MEDS ORDERED: MEROPENEM 1 GM VIAL IVPB ONE ×4 (02:10→19:26)
[2017-10-20] MEDS ORDERED: SODIUM CHL 0.9% 50ML MIN-BAG+ 50 ML IVPB ONE ×4 (02:10→19:24)
[2017-10-20] MEDS: MEROPENEM 1 GM in SODIUM CHL 0.9% 50ML MIN-BAG+ 50 ML IVPB SCH ×3 (02:13→17:35)
[2017-10-20] MEDS: LEVOTHYROXINE SODIUM 0.1 MG TAB PO SCH (06:03)
[2017-10-20] MEDS: INSULIN LISPRO 100 UNITS/ML PEN SUBCU SCH ×4 (07:49→21:47)
[2017-10-20] MEDS: METOPROLOL TARTRATE 50 MG TAB PO SCH ×2 (08:26→17:26)
[2017-10-20] MEDS: GLIMEPIRIDE 2 MG TAB PO SCH ×2 (08:26→17:27)
[2017-10-20] MEDS: metFORMIN HCL 500 MG TAB PO SCH ×2 (08:26→17:27)
[2017-10-20] MEDS: GABAPENTIN 300 MG CAP PO SCH ×3 (09:28→20:32)
[2017-10-20] MEDS: MELOXICAM 7.5 MG TAB PO SCH (09:28)
[2017-10-20] MEDS: DULoxetine HCL 30 MG CAP PO SCH (09:28)
[2017-10-20] MEDS: BIFIDOBACTERIUM INFANTIS 4 MG CAP PO SCH ×2 (09:28→20:32)
[2017-10-20] MEDS: CYANOCOBALAMIN 1,000 MCG TAB PO SCH (09:28)
[2017-10-20] MEDS: ISOSORBIDE MONONITRATE (IMDUR) 30 MG TAB PO SCH (09:29)
[2017-10-20] MEDS: ASPIRIN EC 81 MG TAB PO SCH (09:29)
[2017-10-20] MEDS: DOCUSATE SODIUM 100 MG CAP PO SCH (09:29)
[2017-10-20] MEDS: POTASSIUM CHLORIDE 10 MEQ TAB PO SCH (09:29)
[2017-10-20] MEDS: FUROSEMIDE 40 MG TAB PO SCH (09:30)
[2017-10-20] MEDS: ATORVASTATIN 20 MG TAB PO SCH (09:30)
[2017-10-20] MEDS: INSULIN DETEMIR 100 UNITS/ML PEN SUBCU SCH ×2 (09:31→21:48)
[2017-10-20] MEDS: NON-FORMULARY MEDICATION 1 EA MIS (Memantine Hcl [Namenda Xr] 28 MG) PO SCH (09:44)
[2017-10-20] MEDS: ALLOPURINOL 300 MG TAB PO SCH (10:06)
[2017-10-20] MEDS: SODIUM CHLORIDE 0.9% (FLUSH) 10 ML SYG IV SCH ×2 (10:06→20:32)
[2017-10-20] MEDS ORDERED: PROMETHAZINE HCL 25 MG TAB PO PRN (17:56)
[2017-10-20] MEDS: ENOXAPARIN SODIUM 40 MG/0.4 ML SYG SUBCU SCH (20:32)
[2017-10-21] MEDS: MEROPENEM 1 GM in SODIUM CHL 0.9% 50ML MIN-BAG+ 50 ML IVPB SCH ×3 (02:15→17:53)
[2017-10-21] MEDS: LEVOTHYROXINE SODIUM 0.1 MG TAB PO SCH (06:19)
[2017-10-21] MEDS: INSULIN LISPRO 100 UNITS/ML PEN SUBCU SCH ×4 (07:41→21:14)
[2017-10-21] MEDS: METOPROLOL TARTRATE 50 MG TAB PO SCH ×2 (08:17→16:55)
[2017-10-21] MEDS ORDERED: SODIUM CHL 0.9% 50ML MIN-BAG+ 50 ML IVPB ONE ×3 (09:05→19:57)
[2017-10-21] MEDS ORDERED: MEROPENEM 1 GM VIAL IVPB ONE ×3 (09:07→19:58)
[2017-10-21] MEDS: INSULIN DETEMIR 100 UNITS/ML PEN SUBCU SCH ×2 (09:23→21:14)
[2017-10-21] MEDS: SODIUM CHLORIDE 0.9% (FLUSH) 10 ML SYG IV SCH ×2 (09:28→20:31)
[2017-10-21] MEDS: ATORVASTATIN 20 MG TAB PO SCH (09:28)
[2017-10-21] MEDS: metFORMIN HCL 500 MG TAB PO SCH ×2 (09:29→16:56)
[2017-10-21] MEDS: BIFIDOBACTERIUM INFANTIS 4 MG CAP PO SCH ×2 (09:29→20:31)
[2017-10-21] MEDS: POTASSIUM CHLORIDE 10 MEQ TAB PO SCH (09:29)
[2017-10-21] MEDS: CYANOCOBALAMIN 1,000 MCG TAB PO SCH (09:29)
[2017-10-21] MEDS: DULoxetine HCL 30 MG CAP PO SCH (09:30)
[2017-10-21] MEDS: ASPIRIN EC 81 MG TAB PO SCH (09:30)
[2017-10-21] MEDS: DOCUSATE SODIUM 100 MG CAP PO SCH (09:30)
[2017-10-21] MEDS: MELOXICAM 7.5 MG TAB PO SCH (09:30)
[2017-10-21] MEDS: GABAPENTIN 300 MG CAP PO SCH ×3 (09:30→20:31)
[2017-10-21] MEDS: ISOSORBIDE MONONITRATE (IMDUR) 30 MG TAB PO SCH (09:30)
[2017-10-21] MEDS: ALLOPURINOL 300 MG TAB PO SCH (09:31)
[2017-10-21] MEDS: NON-FORMULARY MEDICATION 1 EA MIS (Memantine Hcl [Namenda Xr] 28 MG) PO SCH (09:31)
[2017-10-21] MEDS: FUROSEMIDE 40 MG TAB PO SCH (09:31)
[2017-10-21] MEDS: GLIMEPIRIDE 2 MG TAB PO SCH ×2 (09:36→16:56)
--- NOTE | 2017-10-21 15:32 | PN ---
DATE: 10/21/17 SUPERVISING PHYSICIAN: Garcia Wong M.D. SUBJECTIVE: Ms. Villanueva is a 72 year-old white female in Swing Bed at [facility]. She was seen today for hypoglycemia and a scratchy throat. Since her admission, she had had declining blood sugars over the last 3 days. This morning her glucose fasting was 63. Her Amaryl was held. She did eat breakfast. All other hypoglycemic medications, including insulin, were given. An hour later they stated she stated she was feeling much better. She also complained of a sore and scratchy throat. There was no fever noted on her vital signs over the last 24 to 48 hours. Her only other symptom is postnasal drainage and a congested nose. OBJECTIVE: VITAL SIGNS: 97.6 temperature, 93 pulse, 135/79 blood pressure, 18 respiratory rate, 94% oxygen saturation on room air. Intake and output: 870 mL in, 1560 out. Her weight today was 106.14 kg. Glucose readings over 24 hours on 10/20/17 at 7:00 AM was 98, 10/20/17 at noon 92, 10/20/17 at 4:30 was 75, at 9:00 PM 100, 10/21/17 at 0650 was 63. Physical exam: Ms. Villanueva is an obese white female 72 years old. She appears to be in no acute distress, resting comfortably. She is alert and oriented times three. Pupils are equal, round and reactive to light. Conjunctiva is clear. Oropharynx is cobblestoned with mild erythema and postnasal drainage. NECK: Soft, supple with no lymphadenopathy. She has full range of motion. No tenderness. No jugular venous distention. CHEST: Clear to auscultation bilaterally with no rales, rhonchi or wheezing. ABDOMEN: Soft, non-tender. Bowel sounds are active in all 4 quadrants. She is obese with no palpable masses or organomegaly. EXTREMITIES: No cyanosis, clubbing or edema. She has equal strength of her hands and feet, however she has some coordination issues of her upper and lower extremities. NEUROLOGIC: She is alert and oriented times three. Cranial nerves II-XII are grossly intact. Facial features are symmetrical. Extraocular movements are intact and normal. There is no nystagmus noted. She does have equal strength bilaterally upper and lower extremities, however she does have fine motor deficit of the left. Has difficulty picking up things with her fingers. There are no new radiologic studies to be reviewed. ASSESSMENT: 1. Previous transient ischemic attack with mild visual disturbances, dizziness , vertigo and weakness, continues to show improvement, but requires ongoing physical therapy and rehabilitation and admission to Swing Bed. 2. Acute urinary tract infection with final culture showing Escherichia coli with resistance noted to be fairly mild, but the patient has previous allergies and has been on Augmentin in the past and was switched to meropenem due to multiple allergies including cephalosporins, fluoroquinolones, sulfa drugs with the patient continuing to need ongoing therapy for at least four more days for a total treatment course of seven days. 3. Past history of acute mental status changes with hallucinations felt to be secondary to underlying urinary tract infection from underlying metabolic encephalopathy, improved with antibiotics. 4. Diabetes mellitus, type 2, with insulin with good control. 5. 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 Johnson in [place]. Repeat evaluation warranted once discharged. 6. History of repeat cerebrovascular accidents on three occasions with some residual left sided weakness treated at [facility]. 7. Hypothyroidism on supplementation. 8. History of hypertension. 9. History of congestive heart failure of unknown etiology with no echocardiogram for review with no evidence of exacerbation. 10. Mild hypokalemia on Acute Care, improved with fluids with laboratory results pending. 11. Recent allergic anaphylactic reaction to cephalosporins in the Emergency Room to include ceftriaxone. 12. Leukocytosis persistent secondary to UTI. 13. Allergic pharyngitis. PLAN: Swing Bed will be continued with ongoing physical therapy for conditioning and continued antibiotic therapy of Meropenem for treatment course of a total of 7 days. At the end of her Swing Bed, a repeat urinalysis is probably warranted for the treatment of the UTI. Until then, will continue to monitor the patient closely and treat appropriately. With regards to her hypoglycemia, her Amaryl will be discontinued. Her Metformin and Lantus will be continued. SS to consult and PT evaluation to verify if she will be safe to return home with [facility]. She will also do salt water gargles 3 times a day prior to meals for her allergic pharyngitis. Garcia Wong M.D. is available for consultation by telephone. [facility][id number] [facility]
[2017-10-21] MEDS: IV SET AND CAP CHANGE INJ INJ SCH (20:26)
[2017-10-21] MEDS: ENOXAPARIN SODIUM 40 MG/0.4 ML SYG SUBCU SCH (20:31)
[2017-10-22] MEDS: MEROPENEM 1 GM in SODIUM CHL 0.9% 50ML MIN-BAG+ 50 ML IVPB SCH ×2 (02:13→10:12)
[2017-10-22] MEDS: LEVOTHYROXINE SODIUM 0.1 MG TAB PO SCH (06:29)
[2017-10-22] MEDS: INSULIN LISPRO 100 UNITS/ML PEN SUBCU SCH ×4 (08:05→21:04)
[2017-10-22] MEDS: GLIMEPIRIDE 2 MG TAB PO SCH (08:42)
[2017-10-22] MEDS: metFORMIN HCL 500 MG TAB PO SCH ×2 (08:45→17:21)
[2017-10-22] MEDS: METOPROLOL TARTRATE 50 MG TAB PO SCH ×2 (08:45→17:21)
[2017-10-22] MEDS ORDERED: SODIUM CHL 0.9% 50ML MIN-BAG+ 50 ML IVPB ONE (08:59)
[2017-10-22] MEDS ORDERED: MEROPENEM 1 GM VIAL IVPB ONE (09:01)
[2017-10-22] MEDS: ISOSORBIDE MONONITRATE (IMDUR) 30 MG TAB PO SCH (10:04)
[2017-10-22] MEDS: MELOXICAM 7.5 MG TAB PO SCH (10:04)
[2017-10-22] MEDS: ALLOPURINOL 300 MG TAB PO SCH (10:05)
[2017-10-22] MEDS: CYANOCOBALAMIN 1,000 MCG TAB PO SCH (10:05)
[2017-10-22] MEDS: GABAPENTIN 300 MG CAP PO SCH ×3 (10:05→21:07)
[2017-10-22] MEDS: FUROSEMIDE 40 MG TAB PO SCH (10:05)
[2017-10-22] MEDS: ATORVASTATIN 20 MG TAB PO SCH (10:05)
[2017-10-22] MEDS: SODIUM CHLORIDE 0.9% (FLUSH) 10 ML SYG IV SCH ×2 (10:05→21:08)
[2017-10-22] MEDS: DULoxetine HCL 30 MG CAP PO SCH (10:05)
[2017-10-22] MEDS: ASPIRIN EC 81 MG TAB PO SCH (10:05)
[2017-10-22] MEDS: DOCUSATE SODIUM 100 MG CAP PO SCH (10:06)
[2017-10-22] MEDS: POTASSIUM CHLORIDE 10 MEQ TAB PO SCH (10:06)
[2017-10-22] MEDS: INSULIN DETEMIR 100 UNITS/ML PEN SUBCU SCH ×2 (10:06→21:03)
[2017-10-22] MEDS: BIFIDOBACTERIUM INFANTIS 4 MG CAP PO SCH ×2 (10:06→21:07)
[2017-10-22] MEDS: NON-FORMULARY MEDICATION 1 EA MIS (Memantine Hcl [Namenda Xr] 28 MG) PO SCH (10:09)
[2017-10-22] MEDS: ENOXAPARIN SODIUM 40 MG/0.4 ML SYG SUBCU SCH (21:07)
[2017-10-23] MEDS: LEVOTHYROXINE SODIUM 0.1 MG TAB PO SCH ×2 (06:34→10:18)
[2017-10-23] MEDS: METOPROLOL TARTRATE 50 MG TAB PO SCH (07:50)
[2017-10-23] MEDS: metFORMIN HCL 500 MG TAB PO SCH (07:50)
[2017-10-23] MEDS: INSULIN LISPRO 100 UNITS/ML PEN SUBCU SCH (09:07)
[2017-10-23] MEDS: ASPIRIN EC 81 MG TAB PO SCH (09:40)
[2017-10-23] MEDS: ISOSORBIDE MONONITRATE (IMDUR) 30 MG TAB PO SCH (09:40)
[2017-10-23] MEDS: ALLOPURINOL 300 MG TAB PO SCH (09:41)
[2017-10-23] MEDS: DOCUSATE SODIUM 100 MG CAP PO SCH (09:41)
[2017-10-23] MEDS: MELOXICAM 7.5 MG TAB PO SCH (09:41)
[2017-10-23] MEDS: DULoxetine HCL 30 MG CAP PO SCH (09:41)
[2017-10-23] MEDS: CYANOCOBALAMIN 1,000 MCG TAB PO SCH (09:41)
[2017-10-23] MEDS: BIFIDOBACTERIUM INFANTIS 4 MG CAP PO SCH (09:41)
[2017-10-23] MEDS: FUROSEMIDE 40 MG TAB PO SCH (09:41)
[2017-10-23] MEDS: ATORVASTATIN 20 MG TAB PO SCH (09:42)
[2017-10-23] MEDS: POTASSIUM CHLORIDE 10 MEQ TAB PO SCH (09:42)
[2017-10-23] MEDS: GABAPENTIN 300 MG CAP PO SCH (09:42)
[2017-10-23 09:47] VITALS: BP 135/78; TEMP 98.2
[2017-10-23] MEDS: INSULIN DETEMIR 100 UNITS/ML PEN SUBCU SCH (10:19)
[2017-10-23] MEDS: NON-FORMULARY MEDICATION 1 EA MIS (Memantine Hcl [Namenda Xr] 28 MG) PO SCH (10:20)
[2017-10-23 10:47] VITALS: O2SAT 94
--- NOTE | 2017-11-01 13:49 | DS ---
SUPERVISING PHYSICIAN: Fabian Gipson MD DISCHARGE DIAGNOSIS: 1. Previous transient ischemic attack with mild visual disturbances, dizziness , vertigo and weakness, continues to show improvement, but requires ongoing physical therapy and rehabilitation and admission to Swing Bed. 2. Acute urinary tract infection with final culture showing Escherichia coli with resistance noted to be fairly mild, but the patient has previous allergies and has been on Augmentin in the past, but was switched to meropenem due to multiple allergies including cephalosporins, fluoroquinolones, sulfa drugs with the patient requiring four more days of IV antibiotic therapy for a total course of seven days. 3. Past history of acute mental status changes with hallucinations, felt to be secondary to underlying urinary tract infection and from underlying metabolic encephalopathy, improved with antibiotics. 4. Diabetes mellitus, type 2. 5. 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 Johnson in [place]. Repeat evaluation warranted once discharged. 6. 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 7. Hypothyroidism on supplementation. 8. History of hypertension. 9. History of congestive heart failure of unknown etiology with no echocardiogram for review with no evidence of acute exacerbation. 10. Mild hypokalemia on Acute Care, improved with fluids. 11. Recent allergic anaphylactic reaction to cephalosporins in the Emergency Room, treated with steroids and Benadryl with no residual problems. 12. Leukocytosis, persistent, secondary to urinary tract infection. 13. Allergic pharyngitis. HISTORY OF PRESENT ILLNESS: This is a 72-year-old female patient who was admitted to Swing Bed at [facility] for continued IV antibiotics therapy as well as physical strengthening and conditioning. She was discharged from her Acute Care admission and placed in Swing Bed because she has multiple allergies to medications as well as her urine culture showed only a sensitivity to IV antibiotics due to her allergies, so she was placed on Merrem. She also had several issues with low blood sugars when she had no eaten She has completed her IV antibiotics and will be discharged home in stable condition. DISCHARGE PLAN: The patient will be discharged home in stable condition. Her long-acting insulin was adjusted somewhat and she may have to go back to her original dosing once she gets home. She will followup with Dr. Holloway within 2 weeks. She is to return to the hospital or Dr. Holloway for any problems. Her prior long-acting insulin was 40 units subcutaneously b.i.d. and is now 12 units at bedtime and 20 units in the morning and that may have to be adjusted once she gets home and resumes her regular diabetic diet. DISCHARGE MEDICATIONS: 1. Aspirin. 2. Metformin. 3. Glimepiride. 4. Metoprolol tartrate. 5. Potassium chloride. 6. Allopurinol. 7. Gabapentin. 8. Furosemide. 9. Namenda. 10. Synthroid. 11. Ranitidine. 12. Nitroglycerin. 13. Meloxicam. 14. Tramadol. 15. Atorvastatin. 16. Cyclobenzaprine. 17. Hydrocodone. 18. Cyanocobalamin. 19. Meclizine. 20. Cymbalta. 21. Humalog. 22. Isosorbide mononitrate. 23. Align. 24. Levemir insulin 12 units subcutaneously at bedtime. 25. Levemir insulin 20 units subcutaneously q.a.m. #[id number] [facility]
== END 2017-10-23 11:00 | disposition home health service (06) | DRG 690 ==
LOC: MS 17:47
PROVIDERS: ADMIT Family Medicine; ATTEND Nurse Practitioner Family
DX: N39.0 Urinary tract infection, site not specified (principal); I69.354 Hemiplegia and hemiparesis following cerebral infarction affecting left non-dominant side; G45.9 Transient cerebral ischemic attack, unspecified; Z68.41 Body mass index [BMI] 40.0-44.9, adult; R53.1 Weakness; R26.81 Unsteadiness on feet; B96.20 Unspecified Escherichia coli [E. coli] as the cause of diseases classified elsewhere; E11.649 Type 2 diabetes mellitus with hypoglycemia without coma; J02.9 Acute pharyngitis, unspecified; R09.81 Nasal congestion; E03.9 Hypothyroidism, unspecified; I25.10 Atherosclerotic heart disease of native coronary artery without angina pectoris; I11.0 Hypertensive heart disease with heart failure; I50.9 Heart failure, unspecified; E11.9 Type 2 diabetes mellitus without complications; E78.5 Hyperlipidemia, unspecified; J45.909 Unspecified asthma, uncomplicated; M10.9 Gout, unspecified; G47.33 Obstructive sleep apnea (adult) (pediatric); H54.7 Unspecified visual loss; Z16.20 Resistance to unspecified antibiotic; Z66 Do not resuscitate; E66.9 Obesity, unspecified; Z91.048 Other nonmedicinal substance allergy status; Z88.1 Allergy status to other antibiotic agents; Z88.3 Allergy status to other anti-infective agents; Z88.2 Allergy status to sulfonamides; Z88.8 Allergy status to other drugs, medicaments and biological substances

== ENCOUNTER 2017-10-24 15:21 | Emergency (ER) | payer MEDICARE ==
[2017-10-24 16:02] VITALS: TEMP 96.3
--- NOTE | 2017-10-24 18:19 | ED.PDOC ---
History of Present Illness - General Chief Complaint: Trauma Stated Complaint: fall Time Seen by Provider: 10/24/17 18:16 Source: patient, RN notes reviewed, Vital Signs reviewed Exam Limitations: no limitations Additional Information: Pt fell out of bed and landed on her knees and hyperextended her toes. She states it hurts to move her toes and her left knee is tender. She is in no distress at rest and she has no gross abnormalities on exam other than obesity. - History of Present Illness Occurred: just prior to arrival Severity: mild Pain Location: lower extremity - Left knee and toes bilateral feet Method of Injury: fall Improving Factors: rest Worsening Factors: movement Loss of Consciousness: no loss of consciousness Associated Symptoms (Fall): denies symptoms Allergies/Adverse Reactions: Allergies Ceftriaxone Allergy (Verified 10/12/17 21:31) Rash upon attempted iv dose, pt began sweating and itching all over her body Iodine Allergy (Verified 10/12/17 17:29) Levofloxacin [From Levaquin] Allergy (Verified 10/12/17 17:29) Sulfa Drugs Allergy (Verified 10/12/17 17:29) plastic tape Allergy (Uncoded 10/12/17 17:29) Home Medications: Ambulatory Orders Aspirin [Aspirin EC Low Dose] 81 mg PO DAILY #30 tab 09/04/17 Allopurinol 300 mg PO DAILY 10/13/17 Atorvastatin Calcium [Lipitor] 40 mg PO DAILY 10/13/17 Cyanocobalamin [Vitamin B-12] 1,000 mcg PO DAILY 10/13/17 Cyclobenzaprine HCl 10 mg PO Q8HR PRN 10/13/17 DULoxetine HCL [Cymbalta] 30 mg PO DAILY 10/13/17 Furosemide [Lasix] 20 mg PO DAILY 10/13/17 Gabapentin 300 mg PO TID 10/13/17 Glimepiride 4 mg PO BID 10/13/17 HYDROcodone 5MG/APAP 325MG [[place] 5/325] 1 - 2 tablet PO Q6HR PRN 10/13/17 Insulin Lispro [Humalog] 100 unit SC ACHS 10/13/17 Isosorbide Mononitrate [Isosorbide Mononitrate ER] 60 mg PO DAILY 10/13/17 Levothyroxine Sodium [Synthroid] 100 mcg PO QAM 10/13/17 Meclizine HCl 25 mg PO Q6HR PRN 10/13/17 Meloxicam 15 mg PO DAILY 10/13/17 Memantine HCl [Namenda Xr] 28 mg PO DAILY 10/13/17 Metformin HCl 1,000 mg PO BID 10/13/17 Metoprolol Tartrate 50 mg PO BID 10/13/17 Nitroglycerin 0.4 mg SL PRN PRN 10/13/17 Potassium Chloride [Potassium Chloride ER] 10 meq PO DAILY 10/13/17 Ranitidine HCl [Ranitidine 75] 75 mg PO BID 10/13/17 Tramadol HCl 50 mg PO TID PRN 10/13/17 Bifidobacterium Infantis [Align] 4 mg PO BID cap 10/18/17 Meropenem [Merrem] 1 gm IVPB Q8H 4 Days vial 10/18/17 Insulin Detemir [Levemir] 12 unit SUBCU BEDTIME #1 pen 10/23/17 Insulin Detemir [Levemir] 20 unit SUBCU DAILY #1 pen 10/23/17 Review of Systems - Review of Systems Constitutional: States: no symptoms reported EENTM: States: no symptoms reported Respiratory: States: no symptoms reported Cardiology: States: no symptoms reported Gastrointestinal/Abdominal: States: no symptoms reported Genitourinary: States: no symptoms reported Musculoskeletal: States: see HPI Skin: States: no symptoms reported Neurological: States: no symptoms reported Endocrine: States: no symptoms reported Hematologic/Lymphatic: States: no symptoms reported Past Medical History (General) - Patient Medical History Hx Seizures: No Hx Stroke: Yes Hx Dementia: No Hx Asthma: No Hx of COPD: No Hx Cardiac Disorders: No Hx Congestive Heart Failure: Yes Hx Pacemaker: No Hx Hypertension: Yes Hx Thyroid Disease: Yes Hx Diabetes: Yes Hx Gastroesophageal Reflux: No Hx Renal Disease: No Hx Cancer: No Hx of HIV: No Hx Hepatitis C: No Hx MRSA: No Surgical History: appendectomy, cholecystectomy, Hysterectomy - Vaccination History Hx Tetanus, Diphtheria Vaccination: No Hx Influenza Vaccination: No Hx Pneumococcal Vaccination: Yes - Social History Hx Tobacco Use: No Hx Chewing Tobacco Use: No Hx Alcohol Use: No Hx Substance Use: No Hx Substance Use Treatment: No Hx Depression: No Hx Physical Abuse: No Hx Emotional Abuse: No - Female History Patient : No Family Medical History - Family History Mother Family History: No Known Living Status: Hx Family Asthma: No Hx Family Hypertension: Yes Hx Family Stroke: Yes Hx Cardiac Disease: Yes Hx Family Diabetes: Yes Hx Family Cancer: No Hx Family;Other: migraines mom Father Living Status: Hx Family Asthma: No Hx Family Congestive Heart Failure: Yes Hx Family Hypertension: Yes Hx Family Stroke: Yes Hx Cardiac Disease: Yes Hx Family Diabetes: Yes Hx Family Cancer: No Physical Exam - Physical Exam General Appearance: Alert, Comfortable, No apparent distress, Obese Head Injury: no evidence of injury Eye Exam: bilateral normal ENT Exam: hearing grossly normal, no evidence of ENT injury Neck Exam: non-tender, full range of motion Cardiovascular/Respiratory: no respiratory distress Gastrointestinal/Abdominal: non tender, soft Back Exam: normal inspection Extremity Exam: no evidence of injury, normal range of motion, pain with movement - mild 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 Doubt fracture. Suspect contusion and sprain. No x-ray indicated at this time. Pt ok to be discharged back to assisted living facility with recommendation to f/u with PCM within 1 week and strict return precautions given as well. Departure - Departure Clinical Impression: Contusion, knee Qualifiers: Encounter type: initial encounter Laterality: left Qualified Code(s): S80.02XA - Contusion of left knee, initial encounter Toe sprain Qualifiers: Encounter type: initial encounter Qualified Code(s): S93.509A - Unspecified sprain of unspecified toe(s), initial encounter Time of Disposition: 18:50 Disposition: Discharge to Home or Self Care Condition: Fair Departure Forms: ED Discharge - Pt. Copy, Patient Portal Self Enrollment Instructions: DI for Contusion, Toe Sprain Referrals: Ronald Holloway III, MD [Primary Care Provider] - 1-5 Days Home Medications: Ambulatory Orders Aspirin [Aspirin EC Low Dose] 81 mg PO DAILY #30 tab 09/04/17 Allopurinol 300 mg PO DAILY 10/13/17 Atorvastatin Calcium [Lipitor] 40 mg PO DAILY 10/13/17 Cyanocobalamin [Vitamin B-12] 1,000 mcg PO DAILY 10/13/17 Cyclobenzaprine HCl 10 mg PO Q8HR PRN 10/13/17 DULoxetine HCL [Cymbalta] 30 mg PO DAILY 10/13/17 Furosemide [Lasix] 20 mg PO DAILY 10/13/17 Gabapentin 300 mg PO TID 10/13/17 Glimepiride 4 mg PO BID 10/13/17 HYDROcodone 5MG/APAP 325MG [[place] 5/325] 1 - 2 tablet PO Q6HR PRN 10/13/17 Insulin Lispro [Humalog] 100 unit SC ACHS 10/13/17 Isosorbide Mononitrate [Isosorbide Mononitrate ER] 60 mg PO DAILY 10/13/17 Levothyroxine Sodium [Synthroid] 100 mcg PO QAM 10/13/17 Meclizine HCl 25 mg PO Q6HR PRN 10/13/17 Meloxicam 15 mg PO DAILY 10/13/17 Memantine HCl [Namenda Xr] 28 mg PO DAILY 10/13/17 Metformin HCl 1,000 mg PO BID 10/13/17 Metoprolol Tartrate 50 mg PO BID 10/13/17 Nitroglycerin 0.4 mg SL PRN PRN 10/13/17 Potassium Chloride [Potassium Chloride ER] 10 meq PO DAILY 10/13/17 Ranitidine HCl [Ranitidine 75] 75 mg PO BID 10/13/17 Tramadol HCl 50 mg PO TID PRN 10/13/17 Bifidobacterium Infantis [Align] 4 mg PO BID cap 10/18/17 Meropenem [Merrem] 1 gm IVPB Q8H 4 Days vial 10/18/17 Insulin Detemir [Levemir] 12 unit SUBCU BEDTIME #1 pen 10/23/17 Insulin Detemir [Levemir] 20 unit SUBCU DAILY #1 pen 10/23/17 Additional Instructions: Ok to use over the counter Tylenol and/or Ibuprofen/Advil for pain as needed. Use ice and range of motion exercises as well. You should follow-up with your primary care provider within 5 to 7 days to let them know about the fall and see if they recommend a Home Physical Therapy assessment.
[2017-10-24 19:56] VITALS: BP 114/76; O2SAT 97
== END 2017-10-24 20:19 | disposition home or self-care (01) ==
LOC: ER 15:21
DX: S80.02XA Contusion of left knee, initial encounter (principal); S93.509A Unspecified sprain of unspecified toe(s), initial encounter; E66.9 Obesity, unspecified; I50.9 Heart failure, unspecified; I11.0 Hypertensive heart disease with heart failure; E07.9 Disorder of thyroid, unspecified; E11.9 Type 2 diabetes mellitus without complications; Z86.73 Personal history of transient ischemic attack (TIA), and cerebral infarction without residual deficits; Z79.82 Long term (current) use of aspirin; Z79.4 Long term (current) use of insulin; Z88.1 Allergy status to other antibiotic agents; Z88.2 Allergy status to sulfonamides; Z91.041 Radiographic dye allergy status; Z79.899 Other long term (current) drug therapy; W06.XXXA Fall from bed, initial encounter

== ENCOUNTER 2017-11-28 14:35 | Emergency (ER) | payer MEDICARE ==
--- NOTE | 2017-11-28 15:01 | ED.PDOC ---
History of Present Illness - General Chief Complaint: Syncope/Near Syncope Stated Complaint: syncope Time Seen by Provider: 11/28/17 14:58 Source: patient, RN notes reviewed, Vital Signs reviewed Exam Limitations: no limitations Additional Information: 72 YEAR OLD BROUGHT FROM LOCAL CO WHERE SHE HAD A SYNCOPAL EPISODE LASTING LESS THAN A MIN SHE HAS HISTORY OF DM HTN CHF RAD AT THE PRESENT TIME SHE IS ALERT ORIENTED X 3 DENIES ANY FOCAL NEUROLOGICAL SYMPTOMS - History of Present Illness Timing/Duration: gone Severity: mild Improving Factors: nothing Associated Symptoms: denies symptoms Allergies/Adverse Reactions: Allergies Ceftriaxone Allergy (Verified 11/28/17 14:59) Rash upon attempted iv dose, pt began sweating and itching all over her body Iodine Allergy (Verified 11/28/17 14:59) Levofloxacin [From Levaquin] Allergy (Verified 11/28/17 14:59) Sulfa Drugs Allergy (Verified 11/28/17 14:59) plastic tape Allergy (Uncoded 11/28/17 14:59) Home Medications: Ambulatory Orders Aspirin [Aspirin EC Low Dose] 81 mg PO DAILY #30 tab 09/04/17 Allopurinol 300 mg PO DAILY 10/13/17 Atorvastatin Calcium [Lipitor] 40 mg PO DAILY 10/13/17 Cyanocobalamin [Vitamin B-12] 1,000 mcg PO DAILY 10/13/17 Cyclobenzaprine HCl 10 mg PO Q8HR PRN 10/13/17 DULoxetine HCL [Cymbalta] 30 mg PO DAILY 10/13/17 Furosemide [Lasix] 20 mg PO DAILY 10/13/17 Gabapentin 300 mg PO TID 10/13/17 Glimepiride 4 mg PO BID 10/13/17 HYDROcodone 5MG/APAP 325MG [[place] 5/325] 1 - 2 tablet PO Q6HR PRN 10/13/17 Insulin Lispro [Humalog] 100 unit SC ACHS 10/13/17 Isosorbide Mononitrate [Isosorbide Mononitrate ER] 60 mg PO DAILY 10/13/17 Levothyroxine Sodium [Synthroid] 100 mcg PO QAM 10/13/17 Meclizine HCl 25 mg PO Q6HR PRN 10/13/17 Meloxicam 15 mg PO DAILY 10/13/17 Memantine HCl [Namenda Xr] 28 mg PO DAILY 10/13/17 Metformin HCl 1,000 mg PO BID 10/13/17 Metoprolol Tartrate 50 mg PO BID 10/13/17 Nitroglycerin 0.4 mg SL PRN PRN 10/13/17 Potassium Chloride [Potassium Chloride ER] 10 meq PO DAILY 10/13/17 Ranitidine HCl [Ranitidine 75] 75 mg PO BID 10/13/17 Tramadol HCl 50 mg PO TID PRN 10/13/17 Bifidobacterium Infantis [Align] 4 mg PO BID cap 10/18/17 Insulin Detemir [Levemir] 12 unit SUBCU BEDTIME #1 pen 10/23/17 Insulin Detemir [Levemir] 20 unit SUBCU DAILY #1 pen 10/23/17 Review of Systems - Review of Systems Constitutional: States: no symptoms reported EENTM: States: no symptoms reported Respiratory: States: no symptoms reported Cardiology: States: no symptoms reported Gastrointestinal/Abdominal: States: no symptoms reported Genitourinary: States: no symptoms reported Musculoskeletal: States: no symptoms reported Skin: States: no symptoms reported Neurological: States: headache Endocrine: States: no symptoms reported Hematologic/Lymphatic: States: no symptoms reported Past Medical History (General) - Patient Medical History Hx Seizures: No Hx Stroke: Yes Hx Dementia: No Hx Asthma: No Hx of COPD: No Hx Cardiac Disorders: No Hx Congestive Heart Failure: Yes Hx Pacemaker: No Hx Hypertension: Yes Hx Thyroid Disease: Yes Hx Diabetes: Yes Hx Gastroesophageal Reflux: No Hx Renal Disease: No Hx Cancer: No Hx of HIV: No Hx Hepatitis C: No Hx MRSA: No - Vaccination History Hx Tetanus, Diphtheria Vaccination: No Hx Influenza Vaccination: No Hx Pneumococcal Vaccination: Yes - Social History Hx Tobacco Use: No Hx Chewing Tobacco Use: No Hx Alcohol Use: No Hx Substance Use: No Hx Substance Use Treatment: No Hx Depression: No Hx Physical Abuse: No Hx Emotional Abuse: No - Activities of Daily Living [facility]isted Living (if applicable):: [facility] - Female History Patient : No Family Medical History - Family History Mother Family History: No Known Living Status: Hx Family Asthma: No Hx Family Hypertension: Yes Hx Family Stroke: Yes Hx Cardiac Disease: Yes Hx Family Diabetes: Yes Hx Family Cancer: No Hx Family;Other: migraines mom Father Living Status: Hx Family Asthma: No Hx Family Congestive Heart Failure: Yes Hx Family Hypertension: Yes Hx Family Stroke: Yes Hx Cardiac Disease: Yes Hx Family Diabetes: Yes Hx Family Cancer: No Physical Exam - Physical Exam General Appearance: Alert, Comfortable Eye Exam: bilateral normal Ears, Nose, Throat: hearing grossly normal, normal ENT inspection, normal pharynx, abnormal TM (R) Respiratory: chest non-tender, lungs clear, normal breath sounds, no respiratory distress, no accessory muscle use Cardiovascular/Chest: normal peripheral pulses, regular rate, rhythm, no edema, no gallop Peripheral Pulses: radial,right: 2+, radial,left: 2+, femoral,right: 2+, femoral ,left: 2+, popliteal,right: 2+, popliteal,left: 2+ Back Exam: normal inspection, no CVA tenderness, no vertebral tenderness Extremity: normal range of motion, non-tender 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, no motor/sensory deficits, alert, normal mood/affect Skin Exam: normal color, warm/dry Lymphatic: no adenopathy Progress - Progress Progress: 11/28/17 22:10 pt had a L of NS and her orthostatic hypotension was corrected She was asymptomatic after the fluid correction She will be Discharged back to [place] - Results/Orders Results/Orders: Laboratory Tests 11/28/17 11/28/17 15:14 15:14 WBC 10.9 H RBC 4.66 Hgb 13.6 Hct 41.8 MCV 89.7 MCH 29.1 MCHC 32.4 L RDW 14.4 Plt Count 188 MPV 9.2 Absolute Neuts (auto) 7.10 H Absolute Lymphs (auto) 2.30 Absolute Monos (auto) 0.90 H Absolute Eos (auto) 0.50 H Absolute Basos (auto) 0.10 Neutrophils % 65.0 Lymphocytes % 21.5 Monocytes % 8.2 Eosinophils % 4.5 Basophils % 0.8 Sodium 139 Potassium 4.7 Chloride 103 Carbon Dioxide 23 Anion Gap 17.7 BUN 23 H Creatinine 1.25 BUN/Creatinine Ratio 18.4 Random Glucose 198 H Serum Osmolality 286.8 Calcium 9.2 Total Bilirubin 0.6 AST 30 ALT 25 Alkaline Phosphatase 85 Serum Total Protein 7.8 Albumin 3.7 Globulin 4.1 H Albumin/Globulin Ratio 0.9 L Departure - Departure Clinical Impression: Orthostatic hypotension Time of Disposition: 22:09 Disposition: Discharge to SNF Condition: Good Departure Forms: ED Discharge - Pt. Copy, Patient Portal Self Enrollment Diet: diabetic diet Referrals: Ronald Holloway III, MD [Primary Care Provider] - 1-2 Weeks Home Medications: Ambulatory Orders Aspirin [Aspirin EC Low Dose] 81 mg PO DAILY #30 tab 09/04/17 Allopurinol 300 mg PO DAILY 10/13/17 Atorvastatin Calcium [Lipitor] 40 mg PO DAILY 10/13/17 Cyanocobalamin [Vitamin B-12] 1,000 mcg PO DAILY 10/13/17 Cyclobenzaprine HCl 10 mg PO Q8HR PRN 10/13/17 DULoxetine HCL [Cymbalta] 30 mg PO DAILY 10/13/17 Furosemide [Lasix] 20 mg PO DAILY 10/13/17 Gabapentin 300 mg PO TID 10/13/17 Glimepiride 4 mg PO BID 10/13/17 HYDROcodone 5MG/APAP 325MG [[place] 5/325] 1 - 2 tablet PO Q6HR PRN 10/13/17 Insulin Lispro [Humalog] 100 unit SC ACHS 10/13/17 Isosorbide Mononitrate [Isosorbide Mononitrate ER] 60 mg PO DAILY 10/13/17 Levothyroxine Sodium [Synthroid] 100 mcg PO QAM 10/13/17 Meclizine HCl 25 mg PO Q6HR PRN 10/13/17 Meloxicam 15 mg PO DAILY 10/13/17 Memantine HCl [Namenda Xr] 28 mg PO DAILY 10/13/17 Metformin HCl 1,000 mg PO BID 10/13/17 Metoprolol Tartrate 50 mg PO BID 10/13/17 Nitroglycerin 0.4 mg SL PRN PRN 10/13/17 Potassium Chloride [Potassium Chloride ER] 10 meq PO DAILY 10/13/17 Ranitidine HCl [Ranitidine 75] 75 mg PO BID 10/13/17 Tramadol HCl 50 mg PO TID PRN 10/13/17 Bifidobacterium Infantis [Align] 4 mg PO BID cap 10/18/17 Insulin Detemir [Levemir] 12 unit SUBCU BEDTIME #1 pen 10/23/17 Insulin Detemir [Levemir] 20 unit SUBCU DAILY #1 pen 10/23/17
--- NOTE | 2017-11-28 15:54 | CT ---
Study: CT of the Head. Indication: SYNCOPE Technique: Axial CT images of the head were acquired without intravenous contrast. This exam was performed according to our departmental dose-optimization program, which includes automated exposure control, adjustment of the mA and/or kV according to patient size and/or use of iterative reconstruction technique. Comparison: None. Findings: No CT evidence of acute ischemia, acute hemorrhage, mass, mass effect, midline shift, or extra-axial fluid collection. Previously noted scattered bilateral supratentorial and infratentorial remote parenchymal infarcts redemonstrated. Ventricles are normal in configuration without hydrocephalus. Patchy hypoattenuation of the periventricular and subcortical white matter noted. This is nonspecific but most consistent with chronic microvascular ischemic change. Global parenchymal volume loss and intracranial atherosclerosis noted as well. Paranasal sinuses are adequately aerated. Mastoid air cells are adequately aerated. Osseous structures and soft tissues are unremarkable. Impression: 1. No CT evidence of acute intracranial abnormality. Stable examination. If persistent concern for acute ischemic injury, correlation with MRI recommended. Electronically signed by: Mango Bernstein MD 11/28/2017 3:53 PM [facility]
[2017-11-28] MEDS ORDERED: SODIUM CHLORIDE 0.9% 1000ML 1,000 ML IVS ONE (16:36)
[2017-11-28 22:42] VITALS: O2SAT 96
[2017-11-28 22:45] VITALS: BP 130/91; TEMP 97.9
== END 2017-11-28 23:07 ==
LOC: ER 14:35
DX: I95.1 Orthostatic hypotension (principal); I11.0 Hypertensive heart disease with heart failure; I50.9 Heart failure, unspecified; E07.9 Disorder of thyroid, unspecified; E11.9 Type 2 diabetes mellitus without complications; Z79.4 Long term (current) use of insulin
CPT/HCPCS: 36415; 70450; 80053; 85025; 93005; J7030

== ENCOUNTER → 2018-02-01 | Outpatient (CLI) | payer MEDICARE | LOC: GMAL 06:39 | PROVIDERS: ATTEND Family Medicine | DX: E11.9 Type 2 diabetes mellitus without complications (principal) ==

== ENCOUNTER → 2018-03-20 | Outpatient (CLI) | payer MEDICARE | LOC: GT 09:37 | PROVIDERS: ATTEND Family Medicine | DX: E87.6 Hypokalemia (principal); E78.5 Hyperlipidemia, unspecified; I10 Essential (primary) hypertension; E11.40 Type 2 diabetes mellitus with diabetic neuropathy, unspecified ==

== ENCOUNTER → 2018-05-02 | Outpatient (CLI) | payer MEDICARE | LOC: GT 08:17 | PROVIDERS: ATTEND Family Medicine | DX: E11.9 Type 2 diabetes mellitus without complications (principal); M10.9 Gout, unspecified; I11.9 Hypertensive heart disease without heart failure; D51.9 Vitamin B12 deficiency anemia, unspecified; E78.5 Hyperlipidemia, unspecified; F01.50 Vascular dementia, unspecified severity, without behavioral disturbance, psychotic disturbance, mood disturbance, and anxiety; I20.9 Angina pectoris, unspecified; I69.152 Hemiplegia and hemiparesis following nontraumatic intracerebral hemorrhage affecting left dominant side ==

== ENCOUNTER → 2018-05-30 | Outpatient (CLI) | payer MEDICARE ==
--- NOTE | 2018-05-30 14:47 | MRI ---
CLINICAL HISTORY: 72 years Female, unsteadiness and loss of peripheral sensation COMPARISON: CT head dated 11/28/2017 TECHNIQUE: Multiplanar multiecho imaging of the brain was performed before and after the administration of intravenous contrast. FINDINGS: Punctate focus of restricted diffusion is noted in the right frontal lobe deep white matter representing acute lacunar infarct. Moderate to severe periventricular white matter changes are noted. There is moderate cortical volume loss as well. No intraparenchymal hemorrhage. No intra-axial or extra-axial fluid collections are identified. No space-occupying lesion is identified. The cisterns and ventricles appear normal in caliber. The sella and suprasellar regions demonstrate no gross abnormality. The structures of the posterior fossa are intact. The visualized paranasal sinuses and mastoid air cells appear normal. The globes are intact bilaterally. Review of the bones demonstrates no gross abnormality. IMPRESSION: 1. Punctate focus of restricted diffusion is noted in the right frontal lobe deep white matter representing acute lacunar infarct. 2.Moderate to severe periventricular white matter changes are noted. The findings were discussed with Dr. Yi at 2:35 PM on 05/30/2018. Electronically signed by: Guille Cifuentes MD 05/30/2018 2:46 PM CDT
== END ==
LOC: MRI 13:00
PROVIDERS: ATTEND Family Medicine
DX: I69.398 Other sequelae of cerebral infarction (principal); E11.319 Type 2 diabetes mellitus with unspecified diabetic retinopathy without macular edema

== ENCOUNTER 2018-07-22 15:33 | Emergency (ER) | payer MEDICARE ==
[2018-07-22] MEDS ORDERED: SODIUM CHLORIDE 0.9% (FLUSH) 10 ML SYG IV PRN (16:07)
--- NOTE | 2018-07-22 16:17 | ED.PDOC ---
History of Present Illness - General Chief Complaint: Neuro Symptoms/Deficits Stated Complaint: generalized weakness Time Seen by Provider: 07/22/18 16:06 Source: patient Exam Limitations: no limitations - History of Present Illness Initial Comments: PT PRESENTS TO THE ED WITH COMPLAINT OF GENERALIZED WEAKNESS AND FEELING LIKE SHE IS "OUT OF BODY". PT STATES THAT SHE FEELS LIKE HER BODY IS GOING IN CIRCLES BUT HER MIND IS STAYING STILL. PT REPORTS THAT SYMPTOMS STARTED THIS MORNING AND HAVE NOT RESOLVED. PT DENIES SPEECH PROBLEMS, COGNITIVE DEFICIT, OR FOCAL WEAKNESS. PT REPORTS TINGLING TO BILATERAL FINGERS. PT REPORTS A HISTORY OF A PREVIOUS CVA WITH LEFT SIDED WEAKNESS THAT HAS RESOLVED. Severity: moderate Improving Factors: nothing Worsening Factors: nothing Associated Symptoms: denies symptoms Allergies/Adverse Reactions: Allergies Ceftriaxone Allergy (Verified 11/28/17 14:59) Rash upon attempted iv dose, pt began sweating and itching all over her body Iodine Allergy (Verified 11/28/17 14:59) Levofloxacin [From Levaquin] Allergy (Verified 11/28/17 14:59) Sulfa Drugs Allergy (Verified 11/28/17 14:59) plastic tape Allergy (Uncoded 11/28/17 14:59) Home Medications: Ambulatory Orders Aspirin [Aspirin EC Low Dose] 81 mg PO DAILY #30 tab 09/04/17 Allopurinol 300 mg PO DAILY 10/13/17 Atorvastatin Calcium [Lipitor] 40 mg PO DAILY 10/13/17 Cyanocobalamin [Vitamin B-12] 1,000 mcg PO DAILY 10/13/17 Cyclobenzaprine HCl 10 mg PO Q8HR PRN 10/13/17 DULoxetine HCL [Cymbalta] 30 mg PO DAILY 10/13/17 Furosemide [Lasix] 20 mg PO DAILY 10/13/17 Gabapentin 300 mg PO TID 10/13/17 Glimepiride 4 mg PO BID 10/13/17 HYDROcodone 5MG/APAP 325MG [[place] 5/325] 1 - 2 tablet PO Q6HR PRN 10/13/17 Insulin Lispro [Humalog] 100 unit SC ACHS 10/13/17 Isosorbide Mononitrate [Isosorbide Mononitrate ER] 60 mg PO DAILY 10/13/17 Levothyroxine Sodium [Synthroid] 100 mcg PO QAM 10/13/17 Meclizine HCl 25 mg PO Q6HR PRN 10/13/17 Meloxicam 15 mg PO DAILY 10/13/17 Memantine HCl [Namenda Xr] 28 mg PO DAILY 10/13/17 Metformin HCl 1,000 mg PO BID 10/13/17 Metoprolol Tartrate 50 mg PO BID 10/13/17 Nitroglycerin 0.4 mg SL PRN PRN 10/13/17 Potassium Chloride [Potassium Chloride ER] 10 meq PO DAILY 10/13/17 Ranitidine HCl [Ranitidine 75] 75 mg PO BID 10/13/17 Tramadol HCl 50 mg PO TID PRN 10/13/17 Bifidobacterium Infantis [Align] 4 mg PO BID cap 10/18/17 Insulin Detemir [Levemir] 12 unit SUBCU BEDTIME #1 pen 10/23/17 Insulin Detemir [Levemir] 20 unit SUBCU DAILY #1 pen 10/23/17 Nitrofurantoin Monohydrate Mac [Macrobid] 100 mg PO BID 7 Days #14 capsule 07/22 Review of Systems - Review of Systems Constitutional: Denies: chills, fever EENTM: Denies: blurred vision, double vision Respiratory: Denies: cough, short of breath Cardiology: Denies: chest pain, palpitations Gastrointestinal/Abdominal: Denies: abdominal pain, nausea, vomiting Genitourinary: Denies: dysuria, frequency Musculoskeletal: Denies: joint swelling, muscle pain Skin: Denies: dryness, lesions Neurological: States: paresthesia, weakness. Denies: headache Endocrine: States: no symptoms reported Hematologic/Lymphatic: States: no symptoms reported Past Medical History (General) - Patient Medical History Hx Seizures: No Hx Stroke: Yes Hx Dementia: No Hx Asthma: Yes Hx of COPD: No Hx Cardiac Disorders: Yes Hx Congestive Heart Failure: Yes Hx Pacemaker: No Hx Hypertension: Yes Hx Thyroid Disease: Yes Hx Diabetes: Yes Hx Gastroesophageal Reflux: No Hx Renal Disease: No Hx Cancer: No Hx of HIV: No Hx Hepatitis C: No Hx MRSA: No Surgical History: appendectomy - Vaccination History Hx Tetanus, Diphtheria Vaccination: No Hx Influenza Vaccination: No Hx Pneumococcal Vaccination: Yes - Social History Hx Tobacco Use: No Hx Chewing Tobacco Use: No Hx Alcohol Use: No Hx Substance Use: No Hx Substance Use Treatment: No Hx Depression: No Feels Threatened In Home Enviroment: No Feels Threatened In a Relationship: No Hx Physical Abuse: No Hx Emotional Abuse: No Hx Suspected Abuse: No - Activities of Daily Living Intermediate/Assisted Living (if applicable):: [facility] Agency (if applicable):: None - Female History Patient is a Female of Child Bearing Age (10 -59 yrs old): No Patient : No Family Medical History - Family History Mother Family History: No Known Living Status: Hx Family Asthma: No Hx Family Hypertension: Yes Hx Family Stroke: Yes Hx Cardiac Disease: Yes Hx Family Diabetes: Yes Hx Family Cancer: No Hx Family;Other: migraines mom Father Living Status: Hx Family Asthma: No Hx Family Congestive Heart Failure: Yes Hx Family Hypertension: Yes Hx Family Stroke: Yes Hx Cardiac Disease: Yes Hx Family Diabetes: Yes Hx Family Cancer: No Progress - Progress Progress: 07/22/18 18:27 PT RESTING COMFORTABLY ON RE-EVAL. TALKING TO FRIENDS IN THE ROOM. PT APPEARS TO BE MUCH MORE ALERT AND VIBRANT. LABS AND DIAGNOSTICS DISCUSSED. WILL FINISH IV FLUID AND D/C BACK HOME ON [facility]CROB[place]. - Results/Orders Results/Orders: 07/22/18 16:07 IV Care:Saline Lock per Protoc QSHIFT Telemetry .ONCE Sodium Chloride 0.9% (Flush) [Saline Flush Syringe] 10 ml IV PRN PRN 07/22/18 16:15 EKG STAT 07/22/18 17:44 URINE CULTURE W/COLONY COUNT Stat 07/22/18 18:06 Sodium Chloride 0.9% 1000ML [Ns 1000 ml] 1,000 ml IVS ONCE Laboratory Results - last 24 hr 07/22/18 07/22/18 07/22/18 16:36 16:36 16:36 WBC 12.9 H RBC 4.52 Hgb 13.5 Hct 41.8 MCV 92.5 MCH 29.7 MCHC 32.2 L RDW 15.1 H Plt Count 232 MPV 9.3 Absolute Neuts (auto) 8.00 H Absolute Lymphs (auto) 3.10 Absolute Monos (auto) 0.80 Absolute Eos (auto) 1.00 H Absolute Basos (auto) 0.10 Neutrophils % 61.5 Lymphocytes % 23.9 Monocytes % 6.5 Eosinophils % 7.7 H Basophils % 0.4 Sodium 139 Potassium 5.0 Chloride 102 Carbon Dioxide 29 Anion Gap 13.0 BUN 21 H Creatinine 0.91 BUN/Creatinine Ratio 23.1 H POC Glucose 147 H Random Glucose 140 H Serum Osmolality 282.8 Calcium 9.4 Total Bilirubin 0.5 AST 31 ALT 39 Alkaline Phosphatase 110 Creatine Kinase 47 CK-MB (CK-2) 1.8 CK-MB (CK-2) % Not Reportable Troponin I < 0.02 Serum Total Protein 8.0 Albumin 3.8 Globulin 4.2 H Albumin/Globulin Ratio 0.9 L Urine Color Urine Appearance Urine pH Ur Specific [place] Urine Protein Urine Glucose (UA) Urine Ketones Urine Blood Urine Nitrite Urine Bilirubin Urine Urobilinogen Ur Leukocyte Esterase Urine RBC Urine WBC Ur Epithelial Cells Urine Bacteria 07/22/18 17:44 WBC RBC Hgb Hct MCV MCH MCHC RDW Plt Count MPV Absolute Neuts (auto) Absolute Lymphs (auto) Absolute Monos (auto) Absolute Eos (auto) Absolute Basos (auto) Neutrophils % Lymphocytes % Monocytes % Eosinophils % Basophils % Sodium Potassium Chloride Carbon Dioxide Anion Gap BUN Creatinine BUN/Creatinine Ratio POC Glucose Random Glucose Serum Osmolality Calcium Total Bilirubin AST ALT Alkaline Phosphatase Creatine Kinase CK-MB (CK-2) CK-MB (CK-2) % Troponin I Serum Total Protein Albumin Globulin Albumin/Globulin Ratio Urine Color Yellow Urine Appearance Cloudy Urine pH 5.5 Ur Specific [place] 1.010 Urine Protein Negative Urine Glucose (UA) Negative Urine Ketones Negative Urine Blood Trace-intact H Urine Nitrite Positive H Urine Bilirubin Negative Urine Urobilinogen 0.2 Ur Leukocyte Esterase Large H Urine RBC 1-3 Urine WBC 10-20 H Ur Epithelial Cells 1-3 Urine Bacteria 2+ H - EKG/XRAY/CT EKG: Deyvi - @55BPM, NL INTERVALS, NL AXIS, Sinus, no ST T wave changes, Unchanged from - 11/28/17 XRAY: chest - NAD, PER RAD CT: HEAD CT Ordered: Yes - NO ACUTE FINDINGS PER RAD CT Interpretation Call Back: No Departure - Departure Clinical Impression: UTI (urinary tract infection), Generalized weakness, Dizziness, nonspecific Time of Disposition: 18:31 Disposition: Discharge to Asst Living Condition: Good Departure Forms: ED Discharge - Pt. Copy, Patient Portal Self Enrollment Instructions: DI for Altered Mental Status, Urinary Tract Infection, Adult (DC) Referrals: Ronald Holloway III, MD [Primary Care Provider] - 1 Week Prescriptions: Nitrofurantoin Monohydrate Mac [Macrobid] 100 mg PO BID 7 Days #14 capsule Home Medications: Ambulatory Orders Aspirin [Aspirin EC Low Dose] 81 mg PO DAILY #30 tab 09/04/17 Allopurinol 300 mg PO DAILY 10/13/17 Atorvastatin Calcium [Lipitor] 40 mg PO DAILY 10/13/17 Cyanocobalamin [Vitamin B-12] 1,000 mcg PO DAILY 10/13/17 Cyclobenzaprine HCl 10 mg PO Q8HR PRN 10/13/17 DULoxetine HCL [Cymbalta] 30 mg PO DAILY 10/13/17 Furosemide [Lasix] 20 mg PO DAILY 10/13/17 Gabapentin 300 mg PO TID 10/13/17 Glimepiride 4 mg PO BID 10/13/17 HYDROcodone 5MG/APAP 325MG [[place] 5/325] 1 - 2 tablet PO Q6HR PRN 10/13/17 Insulin Lispro [Humalog] 100 unit SC ACHS 10/13/17 Isosorbide Mononitrate [Isosorbide Mononitrate ER] 60 mg PO DAILY 10/13/17 Levothyroxine Sodium [Synthroid] 100 mcg PO QAM 10/13/17 Meclizine HCl 25 mg PO Q6HR PRN 10/13/17 Meloxicam 15 mg PO DAILY 10/13/17 Memantine HCl [Namenda Xr] 28 mg PO DAILY 10/13/17 Metformin HCl 1,000 mg PO BID 10/13/17 Metoprolol Tartrate 50 mg PO BID 10/13/17 Nitroglycerin 0.4 mg SL PRN PRN 10/13/17 Potassium Chloride [Potassium Chloride ER] 10 meq PO DAILY 10/13/17 Ranitidine HCl [Ranitidine 75] 75 mg PO BID 10/13/17 Tramadol HCl 50 mg PO TID PRN 10/13/17 Bifidobacterium Infantis [Align] 4 mg PO BID cap 10/18/17 Insulin Detemir [Levemir] 12 unit SUBCU BEDTIME #1 pen 10/23/17 Insulin Detemir [Levemir] 20 unit SUBCU DAILY #1 pen 10/23/17 Nitrofurantoin Monohydrate Mac [Macrobid] 100 mg PO BID 7 Days #14 capsule 07/22
--- NOTE | 2018-07-22 16:31 | RAD ---
EXAM DESCRIPTION: Chest,1 View CLINICAL HISTORY: generalized weakness COMPARISON: 09/04/2017 FINDINGS: Cardiac silhouette is within normal limits. There is no focal parenchymal or pleural disease. Visualized osseous structures are within normal limits. IMPRESSION: No evidence of acute cardiopulmonary disease. Electronically signed by: Mu Ahn 07/22/2018 4:30 PM CDT
--- NOTE | 2018-07-22 16:35 | CT ---
PROCEDURE: Head CLINICAL HISTORY: 73 years Female generalized weakness, ams COMPARISON: 11/28/2017; 05/30/2018 MRI TECHNIQUE: Contiguous axial CT images obtained through the brain without IV contrast. This exam was performed according to our department optimization program which includes automated exposure control, adjustment of the mA and/or kv according to patient size and/or use of iterative reconstruction technique. FINDINGS: The ventricles and sulci are prominent consistent with atrophic changes. Microvascular ischemic changes. Previous areas of infarct in the left cerebellum, bilateral occipital lobes, the right frontotemporal region and archuleta radiata. Old area of infarct also present in the left temporal lobe. No acute intracranial hemorrhage. No masses identified. No fluid or significant mucosal thickening in the visualized paranasal sinuses. No depressed calvarial fractures. IMPRESSION: No acute intracranial abnormality is identified. Atrophy with microvascular ischemic changes and multiple areas of previous infarct stable as compared to the previous exam Generalized atrophy with microvascular ischemic changes. Electronically signed by: Traci Little MD 07/22/2018 4:34 PM CDT
[2018-07-22 16:41] VITALS: TEMP 95
[2018-07-22] MEDS ORDERED: ASPIRIN TABLET 325 MG TAB PO ONE (16:58)
[2018-07-22] MEDS ORDERED: SODIUM CHLORIDE 0.9% 1000ML 1,000 ML IVS ONE (18:06)
[2018-07-22] MEDS ORDERED: NITROFURANTOIN MONOHYDRATE MAC 100 MG CAP PO ONE (18:18)
[2018-07-22 18:41] VITALS: O2SAT 95
[2018-07-22 19:25] VITALS: BP 123/63
== END 2018-07-22 19:24 ==
LOC: ER 15:33
DX: N39.0 Urinary tract infection, site not specified (principal); R53.1 Weakness; R42 Dizziness and giddiness; R00.1 Bradycardia, unspecified; J45.909 Unspecified asthma, uncomplicated; I50.9 Heart failure, unspecified; I11.0 Hypertensive heart disease with heart failure; E11.9 Type 2 diabetes mellitus without complications; E07.9 Disorder of thyroid, unspecified; Z79.4 Long term (current) use of insulin; Z79.82 Long term (current) use of aspirin; Z79.899 Other long term (current) drug therapy; Z88.2 Allergy status to sulfonamides; Z88.1 Allergy status to other antibiotic agents; Z91.041 Radiographic dye allergy status
CPT/HCPCS: 36415; 36416; 70450; 71045; 80053; 81001; 82550; 82553; 82948; 84484; 85025; 87086; 93005; J7030

== ENCOUNTER → 2018-08-14 | Outpatient (CLI) | payer MEDICARE | LOC: GMAL 16:36 | PROVIDERS: ATTEND Family Medicine | DX: R10.31 Right lower quadrant pain (principal) ==

== ENCOUNTER → 2018-08-27 | Outpatient (CLI) | payer MEDICARE | LOC: GT 07:49 | PROVIDERS: ATTEND Family Medicine | DX: N39.0 Urinary tract infection, site not specified (principal) ==

== ENCOUNTER → 2019-02-14 | Outpatient (CLI) | payer MEDICARE | LOC: GT 14:36 | PROVIDERS: ATTEND Family Medicine | DX: N39.0 Urinary tract infection, site not specified (principal) ==

== ENCOUNTER → 2019-04-22 | Outpatient (CLI) | payer MEDICARE, OTHER | LOC: GMAL 17:48 | PROVIDERS: ATTEND Family Medicine | DX: D51.9 Vitamin B12 deficiency anemia, unspecified (principal); E03.8 Other specified hypothyroidism; E11.40 Type 2 diabetes mellitus with diabetic neuropathy, unspecified ==

== ENCOUNTER → 2019-08-26 | Outpatient (CLI) | payer MEDICARE, OTHER | LOC: GMAL 16:50 | PROVIDERS: ATTEND Family Medicine | DX: R53.83 Other fatigue (principal); R74.0 Nonspecific elevation of levels of transaminase and lactic acid dehydrogenase [LDH]; E10.9 Type 1 diabetes mellitus without complications; E78.2 Mixed hyperlipidemia ==

== ENCOUNTER → 2019-09-02 | Outpatient (CLI) | payer MEDICARE, OTHER ==
--- NOTE | 2019-09-03 08:48 | US ---
EXAM DESCRIPTION: Liver: ULTRASOUND. CLINICAL HISTORY: ELEVATED LFTs COMPARISON: CT scan abdomen November 2017. TECHNIQUE: Transabdominal scannin-dimensional and Doppler modes. FINDINGS: Gallbladder: Surgically removed. No fluid in the gallbladder fossa. Non-tender with transducer pressure. Common bile duct: caliber 4.6 mm within normal limits. Liver: Heterogeneously increased echogenicity; contour liver capsule smooth where seen. No fluid around the liver. Intrahepatic biliary ducts normal caliber. Doppler hepatopedal flow portal vein. 1.0 cm. Long axis right lobe 12.5 cm. Pancreas: normal size and echogenicity. Duct not seen. Right kidney: long axis measures 8.8 cm. Normal cortical echogenicity. 10 mm cortical thickness. No hydronephrosis. Aorta proximal: 2.1 cm normal caliber. IMPRESSION: Gallbladder surgically removed. Nontender during scanning. Common bile duct normal caliber. Fatty liver not enlarged. No ascites. Normal vascularity in the liver. Right kidney with thin cortex which may be age-related, otherwise unremarkable. Normal caliber of the IVC and proximal abdominal aorta. Electronically signed by: Mu Crowley MD 09/03/2019 8:46 AM CDT
== END ==
LOC: US 11:46
PROVIDERS: ATTEND Family Medicine
DX: R94.5 Abnormal results of liver function studies (principal); K76.0 Fatty (change of) liver, not elsewhere classified; Z90.49 Acquired absence of other specified parts of digestive tract

== ENCOUNTER 2019-12-19 21:27 | Emergency (ER) | payer MEDICARE, OTHER ==
[2019-12-19] MEDS: ACETAMINOPHEN W/COD #3 TAB 1 EA TAB PO ONE (21:46)
--- NOTE | 2019-12-19 22:39 | RAD ---
EXAM: Ankle,Left 2 Views CLINICAL INDICATION: 74-year-old female with pain status post fall. TECHNIQUE: Two views of the LEFT ankle were obtained in AP and lateral projection. COMPARISON: None. FINDINGS: There is no clearly acute fracture or dislocation. The joint spaces are preserved. No soft tissue abnormalities are seen. Curvilinear focus of ossification is identified just distal to the lateral malleolus raising the possibility of age-indeterminate avulsion injury. Achilles tendon enthesophyte and plantar heel spur. Phleboliths throughout the soft tissues. IMPRESSION: 1. No clearly acute fracture or dislocation. Curvilinear focus of ossification distal to the lateral malleolus may reflect sequela of prior avulsion injury. Please correlate with patient site of pain. Electronically signed by: Chely Abreu MD 12/19/2019 10:37 PM [facility]
--- NOTE | 2019-12-19 22:40 | RAD ---
EXAM: Foot,Left 2 Views CLINICAL INDICATION: 74-year-old female with pain status post fall. TECHNIQUE: Two views LEFT foot were obtained in AP and lateral projection. COMPARISON: None. FINDINGS: There is no fracture or dislocation. The joint spaces are preserved. No soft tissue abnormalities are seen. Degenerative change of the first metatarsophalangeal joint. Achilles tendon enthesophyte and plantar heel spur. IMPRESSION: No acute radiographic abnormality. Electronically signed by: Chely Abreu MD 12/19/2019 10:38 PM [facility]
--- NOTE | 2019-12-19 22:41 | RAD ---
EXAM: Hip,Left 2 Views CLINICAL INDICATION: 74-year-old female with pain status post fall. TECHNIQUE: Two views of the LEFT hip were obtained in AP and lateral projection. COMPARISON: None. FINDINGS: There is no fracture or dislocation. Mild degenerative change of the LEFT femoral acetabular joint space suggesting mild degenerative change. The joint spaces are preserved. No soft tissue abnormalities are seen. IMPRESSION: No acute radiographic abnormality. Electronically signed by: Chely Abreu MD 12/19/2019 10:39 PM [facility]
--- NOTE | 2019-12-19 22:41 | RAD ---
EXAM: XR Right Hip With Pelvis When Performed, 2 or 3 Views CLINICAL HISTORY: The patient is 74 years old and is Female; fall with pain TECHNIQUE: Two or three views of the right hip with pelvis when performed. COMPARISON: No relevant prior studies available. FINDINGS: BONES/JOINTS: The femoral head is well located. Minimal degenerative change of the right hip is present. No acute fracture. No dislocation. SOFT TISSUES: Unremarkable. IMPRESSION: No acute findings in the right hip. Electronically signed by: Felicity Buckner MD 12/19/2019 10:40 PM [facility]
--- NOTE | 2019-12-19 22:42 | RAD ---
EXAM: XR Right Knee Complete, 3 or More Views CLINICAL HISTORY: The patient is 74 years old and is Female; fall with pain TECHNIQUE: 3 or more views of the right knee. COMPARISON: No relevant prior studies available. FINDINGS: BONES/JOINTS: Medial compartment and patellofemoral compartment joint space narrowing is present. Spurring of the medial tibial plateau is noted. There is no joint effusion. No acute fracture. No dislocation. SOFT TISSUES: Unremarkable. IMPRESSION: No acute findings in the right knee. Electronically signed by: Felicity Buckner MD 12/19/2019 10:41 PM [facility]
--- NOTE | 2019-12-19 22:42 | RAD ---
EXAM DESCRIPTION: Pelvis CLINICAL HISTORY: 74 years Female fall with pain COMPARISON: None TECHNIQUE: AP view of the pelvis was obtained. FINDINGS: No acute fracture seen. Moderate bony demineralization. Mild degenerative changes. Soft tissue density within the pelvis but be related to the bladder. IMPRESSION: No acute fracture or dislocation seen. Electronically signed by: Salima Johnson MD 12/19/2019 10:40 PM [facility]
--- NOTE | 2019-12-19 22:42 | RAD ---
EXAM: Knee,Left Complete CLINICAL INDICATION: 74-year-old female with pain status post fall. TECHNIQUE: Three views LEFT knee were obtained in AP, lateral and patellar projections COMPARISON: None. FINDINGS: There is no fracture or dislocation. Moderate to severe degenerative changes identified with sharpening of the tibial spines and bulky tricompartmental osteophyte formation. The joint spaces are preserved. No soft tissue abnormalities are seen. IMPRESSION: Degenerative change without acute radiographic abnormality. Electronically signed by: Chely Abreu MD 12/19/2019 10:40 PM [facility]
--- NOTE | 2019-12-19 23:04 | ED.PDOC ---
History of Present Illness - General Chief Complaint: Trauma Stated Complaint: fell, hio/knee pain Time Seen by Provider: 12/19/19 21:29 Source: patient Exam Limitations: no limitations - History of Present Illness Initial Comments: The patient is a 74-year-old female presented to the emergency room secondary to pain after having fallen between the toilet and the wall while trying to sit on the toilet at the [facility]. The patient gets around normally with a walker. She had a fall a couple of weeks ago as well and is still sore from that fall. She is able to move all extremities. Most of her pain is in the lower extremities. She reports help with pain. She also reports pain in bilateral hips and knees as well as the left ankle and foot. The only visible damage is a small bruise to the fourth toe of the left foot. Otherwise passive range of motion appears to be preserved. Sensation appears to be baseline. She does have chronic neuropathy. No evidence of any laceration. She moves her upper extremities fairly well. She is alert and oriented. No evidence of any head or neck injury. Timing/Duration: momentarily Severity: moderate Improving Factors: nothing Worsening Factors: movement Associated Symptoms: denies symptoms Allergies/Adverse Reactions: Allergies Ceftriaxone Allergy (Verified 11/28/17 14:59) Rash upon attempted iv dose, pt began sweating and itching all over her body Iodine Allergy (Verified 11/28/17 14:59) Levofloxacin [From Levaquin] Allergy (Verified 11/28/17 14:59) Sulfa Drugs Allergy (Verified 11/28/17 14:59) plastic tape Allergy (Uncoded 11/28/17 14:59) Home Medications: Ambulatory Orders Aspirin [Aspirin EC Low Dose] 81 mg PO DAILY #30 tab 09/04/17 Allopurinol 300 mg PO DAILY 10/13/17 Atorvastatin Calcium [Lipitor] 40 mg PO DAILY 10/13/17 Cyanocobalamin [Vitamin B-12] 1,000 mcg PO DAILY 10/13/17 Cyclobenzaprine HCl 10 mg PO Q8HR PRN 10/13/17 DULoxetine HCL [Cymbalta] 30 mg PO DAILY 10/13/17 Furosemide [Lasix] 20 mg PO DAILY 10/13/17 Gabapentin 300 mg PO TID 10/13/17 Glimepiride 4 mg PO BID 10/13/17 HYDROcodone 5MG/APAP 325MG [Armour 5/325] 1 - 2 tablet PO Q6HR PRN 10/13/17 Insulin Lispro [Humalog] 100 unit SC ACHS 10/13/17 Isosorbide Mononitrate [Isosorbide Mononitrate ER] 60 mg PO DAILY 10/13/17 Levothyroxine Sodium [Synthroid] 100 mcg PO QAM 10/13/17 Meclizine HCl 25 mg PO Q6HR PRN 10/13/17 Meloxicam 15 mg PO DAILY 10/13/17 Memantine HCl [Namenda Xr] 28 mg PO DAILY 10/13/17 Metformin HCl [Metformin Hydrochloride] 1,000 mg PO BID 10/13/17 Metoprolol Tartrate 50 mg PO BID 10/13/17 Nitroglycerin 0.4 mg SL PRN PRN 10/13/17 Potassium Chloride [Potassium Chloride ER] 10 meq PO DAILY 10/13/17 Ranitidine HCl [Ranitidine 75] 75 mg PO BID 10/13/17 Tramadol HCl 50 mg PO TID PRN 10/13/17 Bifidobacterium Infantis [Align] 4 mg PO BID cap 10/18/17 Insulin Detemir [Levemir] 12 unit SUBCU BEDTIME #1 pen 10/23/17 Insulin Detemir [Levemir] 20 unit SUBCU DAILY #1 pen 10/23/17 Nitrofurantoin Monohydrate Mac [Macrobid] 100 mg PO BID 7 Days #14 capsule 07/22/18 Review of Systems - Review of Systems Constitutional: States: no symptoms reported EENTM: States: no symptoms reported Respiratory: States: no symptoms reported Cardiology: States: no symptoms reported Gastrointestinal/Abdominal: States: no symptoms reported Genitourinary: States: no symptoms reported Musculoskeletal: States: see HPI Skin: States: see HPI Neurological: States: no symptoms reported, see HPI Endocrine: States: no symptoms reported All other Systems: No Change from Baseline Past Medical History (General) - Patient Medical History Hx Seizures: No Hx Stroke: Yes Hx Dementia: No Hx Asthma: Yes Hx of COPD: No Hx Cardiac Disorders: Yes Hx Congestive Heart Failure: Yes Hx Pacemaker: No Hx Hypertension: Yes Hx Thyroid Disease: Yes Hx Diabetes: Yes Hx Gastroesophageal Reflux: No Hx Renal Disease: No Hx Cancer: No Hx of HIV: No Hx Hepatitis C: No Hx MRSA: No Surgical History: appendectomy, cholecystectomy, Hysterectomy - Vaccination History Hx Tetanus, Diphtheria Vaccination: No Hx Influenza Vaccination: No Hx Pneumococcal Vaccination: Yes - Social History Hx Tobacco Use: No Hx Chewing Tobacco Use: No Hx Alcohol Use: No Hx Substance Use: No Hx Substance Use Treatment: No Hx Depression: No Hx Physical Abuse: No Hx Emotional Abuse: No Hx Suspected Abuse: No - Activities of Daily Living Halfway/Assisted Living (if applicable):: [place] - Female History Patient : No Family Medical History - Family History Mother Family History: No Known Living Status: Hx Family Asthma: No Hx Family Hypertension: Yes Hx Family Stroke: Yes Hx Cardiac Disease: Yes Hx Family Diabetes: Yes Hx Family Cancer: No Hx Family;Other: migraines mom Father Living Status: Hx Family Asthma: No Hx Family Congestive Heart Failure: Yes Hx Family Hypertension: Yes Hx Family Stroke: Yes Hx Cardiac Disease: Yes Hx Family Diabetes: Yes Hx Family Cancer: No Physical Exam - Physical Exam General Appearance: Alert, No apparent distress Eye Exam: bilateral normal Ears, Nose, Throat: hearing grossly normal, normal pharynx Neck: non-tender, supple Respiratory: no respiratory distress, no accessory muscle use Cardiovascular/Chest: normal peripheral pulses, no edema, other - Regular rate Peripheral Pulses: radial,right: 2+, radial,left: 2+, dorsalis pedis,right: 2+, dorsalis pedis,left: 2+ Gastrointestinal/Abdominal: non tender, soft Rectal Exam: deferred Back Exam: no CVA tenderness, no vertebral tenderness Extremity: normal range of motion - Passive, no pedal edema, no calf tenderness, normal capillary refill, other - Tenderness palpation over bilateral hips, bilateral knees, left ankle and left foot. No deformity. No crepitus. Sensation is at baseline. 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 She does have some mild soft tissue injury. No lacerations. X- ray showed no evidence of any dislocation or fracture. She is likely going to need some increased assistance in getting around for the next week or 2 while she is sore. She can continue her routine pain medications. She does need to do range of motion exercises. ER warnings were given for any acute worsening. Follow-up with primary care doctor next week. [email or web address] boston [id number] Departure - Departure Clinical Impression: Fall at [facility] Strain of ankle and foot Qualifiers: Encounter type: initial encounter Laterality: left Qualified Code(s): S96.912A - Strain of unspecified muscle and tendon at ankle and foot level, left foot, initial encounter Strain of pelvis Qualifiers: Encounter type: initial encounter Qualified Code(s): S39.013A - Strain of muscle, fascia and tendon of pelvis, initial encounter Disposition: Discharge to SNF Condition: Fair Departure Forms: ED Discharge - Pt. Copy, Patient Portal Self Enrollment Diet: diabetic diet Activity: increase activity as tolerated Referrals: Ronald Holloway III, MD [Primary Care Provider] - 1-5 Days Home Medications: Ambulatory Orders Aspirin [Aspirin EC Low Dose] 81 mg PO DAILY #30 tab 09/04/17 Allopurinol 300 mg PO DAILY 10/13/17 Atorvastatin Calcium [Lipitor] 40 mg PO DAILY 10/13/17 Cyanocobalamin [Vitamin B-12] 1,000 mcg PO DAILY 10/13/17 Cyclobenzaprine HCl 10 mg PO Q8HR PRN 10/13/17 DULoxetine HCL [Cymbalta] 30 mg PO DAILY 10/13/17 Furosemide [Lasix] 20 mg PO DAILY 10/13/17 Gabapentin 300 mg PO TID 10/13/17 Glimepiride 4 mg PO BID 10/13/17 HYDROcodone 5MG/APAP 325MG [Armour 5/325] 1 - 2 tablet PO Q6HR PRN 10/13/17 Insulin Lispro [Humalog] 100 unit SC ACHS 10/13/17 Isosorbide Mononitrate [Isosorbide Mononitrate ER] 60 mg PO DAILY 10/13/17 Levothyroxine Sodium [Synthroid] 100 mcg PO QAM 10/13/17 Meclizine HCl 25 mg PO Q6HR PRN 10/13/17 Meloxicam 15 mg PO DAILY 10/13/17 Memantine HCl [Namenda Xr] 28 mg PO DAILY 10/13/17 Metformin HCl [Metformin Hydrochloride] 1,000 mg PO BID 10/13/17 Metoprolol Tartrate 50 mg PO BID 10/13/17 Nitroglycerin 0.4 mg SL PRN PRN 10/13/17 Potassium Chloride [Potassium Chloride ER] 10 meq PO DAILY 10/13/17 Ranitidine HCl [Ranitidine 75] 75 mg PO BID 10/13/17 Tramadol HCl 50 mg PO TID PRN 10/13/17 Bifidobacterium Infantis [Align] 4 mg PO BID cap 10/18/17 Insulin Detemir [Levemir] 12 unit SUBCU BEDTIME #1 pen 10/23/17 Insulin Detemir [Levemir] 20 unit SUBCU DAILY #1 pen 10/23/17 Nitrofurantoin Monohydrate Mac [Macrobid] 100 mg PO BID 7 Days #14 capsule 07/22/18 Additional Instructions: The patient is a 74-year-old female presented to the emergency room secondary to having slipped and fallen while going to the bathroom at the [facility]. She does have some mild soft tissue injury. No lacerations. X- ray showed no evidence of any dislocation or fracture. She is likely going to need some increased assistance in getting around for the next week or 2 while she is sore. She can continue her routine pain medications. She does need to do range of motion exercises. ER warnings were given for any acute worsening. Follow-up with primary care doctor next week.
[2019-12-19 23:27] VITALS: BP 144/70; TEMP 97.1; O2SAT 97
== END 2019-12-19 23:45 ==
LOC: ER 21:27
DX: S96.912A Strain of unspecified muscle and tendon at ankle and foot level, left foot, initial encounter (principal); S39.013A Strain of muscle, fascia and tendon of pelvis, initial encounter; M25.561 Pain in right knee; M25.562 Pain in left knee; S90.122A Contusion of left lesser toe(s) without damage to nail, initial encounter; J45.909 Unspecified asthma, uncomplicated; I51.9 Heart disease, unspecified; I50.9 Heart failure, unspecified; I11.0 Hypertensive heart disease with heart failure; E07.9 Disorder of thyroid, unspecified; E11.9 Type 2 diabetes mellitus without complications; W18.30XA Fall on same level, unspecified, initial encounter; Y92.129 Unspecified place in nursing home as the place of occurrence of the external cause; Z86.73 Personal history of transient ischemic attack (TIA), and cerebral infarction without residual deficits; Z88.8 Allergy status to other drugs, medicaments and biological substances; Z91.041 Radiographic dye allergy status; Z88.1 Allergy status to other antibiotic agents; Z88.2 Allergy status to sulfonamides; Z79.82 Long term (current) use of aspirin; Z79.4 Long term (current) use of insulin

== ENCOUNTER 2020-05-13 21:45 | Inpatient (IN) | payer MEDICARE ==
[2020-05-13] MEDS ORDERED: SODIUM CHLORIDE 0.9% 1000ML 1,000 ML IVS ONE (22:23)
[2020-05-13] MEDS ORDERED: SODIUM CHLORIDE 0.9% (FLUSH) 10 ML SYG IV PRN (22:23)
[2020-05-13] MEDS ORDERED: SODIUM CHLORIDE 0.9% IVPB ONE (23:00)
[2020-05-13] MEDS ORDERED: AZTREONAM IVPB ONE (23:00)
[2020-05-13] MEDS ORDERED: VANCOMYCIN HCL INJ 1,000 MG, VANCOMYCIN HCL INJ 250 MG in SODIUM CHLORIDE 0.9% 250ML 25... IVPB ONE (23:01)
--- NOTE | 2020-05-13 23:12 | ED.PDOC ---
History of Present Illness - General Time Seen by Provider: 05/13/20 22:22 Source: patient, RN notes reviewed, Vital Signs reviewed, EMS notes reviewed Exam Limitations: clinical condition - History of Present Illness Initial Comments: Patient is a 74-year-old [place] who presents with altered mental status. History of present illness and review of systems is significantly limited due to her altered mental status. Timing/Duration: unsure Severity: severe Improving Factors: nothing Worsening Factors: nothing Associated Symptoms: cough, fever/chills, malaise, shortness of breath, weakness Allergies/Adverse Reactions: Allergies Ceftriaxone Allergy (Verified 11/28/17 14:59) Rash upon attempted iv dose, pt began sweating and itching all over her body Iodine Allergy (Verified 11/28/17 14:59) Levofloxacin [From Levaquin] Allergy (Verified 11/28/17 14:59) Sulfa Drugs Allergy (Verified 11/28/17 14:59) plastic tape Allergy (Uncoded 11/28/17 14:59) Home Medications: Ambulatory Orders Aspirin [Aspirin EC Low Dose] 81 mg PO DAILY #30 tab 09/04/17 Allopurinol 300 mg PO DAILY 10/13/17 Atorvastatin Calcium [Lipitor] 40 mg PO DAILY 10/13/17 Cyanocobalamin [Vitamin B-12] 1,000 mcg PO DAILY 10/13/17 Cyclobenzaprine HCl 10 mg PO Q8HR PRN 10/13/17 DULoxetine HCL [Cymbalta] 30 mg PO DAILY 10/13/17 Furosemide [Lasix] 20 mg PO DAILY 10/13/17 Gabapentin 300 mg PO TID 10/13/17 Glimepiride 4 mg PO BID 10/13/17 HYDROcodone 5MG/APAP 325MG [Central 5/325] 1 - 2 tablet PO Q6HR PRN 10/13/17 Insulin Lispro [Humalog] 100 unit SC ACHS 10/13/17 Isosorbide Mononitrate [Isosorbide Mononitrate ER] 60 mg PO DAILY 10/13/17 Levothyroxine Sodium [Synthroid] 100 mcg PO QAM 10/13/17 Meclizine HCl 25 mg PO Q6HR PRN 10/13/17 Meloxicam 15 mg PO DAILY 10/13/17 Memantine HCl [Namenda Xr] 28 mg PO DAILY 10/13/17 Metformin HCl [Metformin Hydrochloride] 1,000 mg PO BID 10/13/17 Metoprolol Tartrate 50 mg PO BID 10/13/17 Nitroglycerin 0.4 mg SL PRN PRN 10/13/17 Potassium Chloride [Potassium Chloride ER] 10 meq PO DAILY 10/13/17 Ranitidine HCl [Ranitidine 75] 75 mg PO BID 10/13/17 Tramadol HCl 50 mg PO TID PRN 10/13/17 Bifidobacterium Infantis [Align] 4 mg PO BID cap 10/18/17 Insulin Detemir [Levemir] 12 unit SUBCU BEDTIME #1 pen 10/23/17 Insulin Detemir [Levemir] 20 unit SUBCU DAILY #1 pen 10/23/17 Nitrofurantoin Monohydrate Mac [Macrobid] 100 mg PO BID 7 Days #14 capsule 07/22/18 Review of Systems - Review of Systems Review of Systems: 05/13/20 23:34 Review of systems limited secondary to patient confusion. snf could only tell that she had some fever and cough and they were concerned about COVID Constitutional: States: see HPI, fever, malaise, weakness Respiratory: States: see HPI, cough Gastrointestinal/Abdominal: States: diarrhea - For a few days per the nursing Genitourinary: States: pain - Patient with complaints of pain when urinating Neurological: States: see HPI, weakness, other - Altered mental status Unable to Obtain Due To: clinical condition Past Medical History (General) - Patient Medical History Hx Seizures: No Hx Stroke: Yes Hx Dementia: No Hx Asthma: Yes Hx of COPD: No Hx Cardiac Disorders: Yes Hx Congestive Heart Failure: Yes Hx Pacemaker: No Hx Hypertension: Yes Hx Thyroid Disease: Yes Hx Diabetes: Yes Hx Gastroesophageal Reflux: No Hx Renal Disease: No Hx Cancer: No Hx of HIV: No Hx Hepatitis C: No Hx MRSA: No - Vaccination History Hx Tetanus, Diphtheria Vaccination: No Hx Influenza Vaccination: No Hx Pneumococcal Vaccination: Yes - Social History Hx Tobacco Use: No Hx Chewing Tobacco Use: No Hx Alcohol Use: No Hx Substance Use: No Hx Substance Use Treatment: No Hx Depression: No Hx Physical Abuse: No Hx Emotional Abuse: No Hx Suspected Abuse: No - Female History Patient : No Family Medical History - Family History Mother Family History: No Known Living Status: Hx Family Asthma: No Hx Family Hypertension: Yes Hx Family Stroke: Yes Hx Cardiac Disease: Yes Hx Family Diabetes: Yes Hx Family Cancer: No Hx Family;Other: migraines mom Father Living Status: Hx Family Asthma: No Hx Family Congestive Heart Failure: Yes Hx Family Hypertension: Yes Hx Family Stroke: Yes Hx Cardiac Disease: Yes Hx Family Diabetes: Yes Hx Family Cancer: No Physical Exam - Physical Exam General Appearance: Agitated, Anxious, Obvious distress, Ill Appearing, Obese, Well Developed, Well Hydrated, Well Nourished Eye Exam: bilateral normal Ears, Nose, Throat: hearing grossly normal, normal pharynx - Except dry mucous membranes Neck: non-tender, full range of motion, supple Respiratory: chest non-tender, no accessory muscle use, respiratory distress - Mild, rhonchi - Diffusely throughout Cardiovascular/Chest: normal peripheral pulses, regular rate, rhythm, no edema, no murmur Peripheral Pulses: radial,right: 2+, radial,left: 2+ Gastrointestinal/Abdominal: normal bowel sounds, soft, no organomegaly, no pulsatile mass, tenderness - Suprapubically Back Exam: normal inspection, no vertebral tenderness Extremity: normal range of motion, non-tender, normal inspection Neurologic: no motor/sensory deficits, other - Oriented only to self Skin Exam: warm/dry, pallor Lymphatic: no adenopathy Progress - Progress Progress: Differential diagnosis: Sepsis, UTI, pneumonia, COVID among others. 05/14/20 00:59 Patient lab work shows a significant urinary tract infection. She is swab for COVID. Chest x-ray does not show reece bacterial pneumonia but does show what appears to be a pneumonitis. Cultures are pending. Antibiotics have been given. Plan on admission to the hospital. I discussed this with Gerry Pereira NP and he has accepted the patient for admission. Roberto Carlos Obregon M.D. #[id number] - Results/Orders Results/Orders: EXAM DESCRIPTION: Chest,1 View CLINICAL HISTORY: 74 years Female, altered mental status COMPARISON: None TECHNIQUE: Single AP chest radiograph. FINDINGS: Hazy bilateral lung opacities, most pronounced at the left base. No pneumothorax or pleural effusion. Normal cardiomediastinal contour. Normal osseous structures. IMPRESSION: 1. Nonspecific hazy bilateral lung opacities. Differential considerations include multifocal infection such as viral pneumonitis and edema. Electronically signed by: Jorge Clark MD 05/13/2020 11:09 PM EKG performed on May 2020 at 2238 hrs.: Normal sinus rhythm with sinus arrhythmia at 98 bpm, possible anterior infarct, age indeterminate, abnormal EKG. No comparison EKG available at this time. 05/13/20 22:23 IV Care:Saline Lock per Protoc QSHIFT Telemetry .ONCE Sodium Chloride 0.9% (Flush) [Saline Flush Syringe] 10 ml IV PRN PRN EKG Stat Pulse Ox Stat Pulse Oximetry Assessment DAILY 05/13/20 22:29 STOOL CULTURE Stat 05/13/20 22:31 URINE CULTURE W/COLONY COUNT Stat 05/13/20 22:40 URINE CULTURE W/COLONY COUNT Stat 05/13/20 23:01 Vancomycin HCl Inj 1,000 mg Vancomycin HCl Inj 250 mg Sodium Chloride 0.9% 250Ml [NS 250ml] 250 ml IVPB ONCE 05/13/20 23:15 BLOOD CULTURE Stat 05/14/20 00:30 LACTIC ACID Q2H SARS-COV2 PCR HIGH RISK Stat Laboratory Results - last 24 hr 05/13/20 05/13/20 05/13/20 22:23 22:29 22:40 WBC RBC Hgb Hct MCV MCH MCHC RDW Plt Count MPV Absolute Neuts (auto) Absolute Lymphs (auto) Absolute Monos (auto) Absolute Eos (auto) Absolute Basos (auto) Neutrophils % Lymphocytes % Monocytes % Eosinophils % Basophils % PT INR PTT (SP) D-Dimer, Quantitative pCO2 34 pO2 67 L HCO3 23.6 ABG pH 7.457 H ABG O2 Saturation 93.2 L ABG Base Excess 0.4 ABG Deoxyhemoglobin 6.7 H Oxyhemoglobin % 91.4 L Carboxyhemoglobin % 0.9 Methemoglobin % Sat 1.0 Calc Total Hemoglobin 14.3 Sodium Potassium Chloride Carbon Dioxide Anion Gap BUN Creatinine BUN/Creatinine Ratio Random Glucose Serum Osmolality Lactic Acid Calcium Total Bilirubin AST ALT Alkaline Phosphatase Creatine Kinase CK-MB (CK-2) CK-MB (CK-2) % Troponin I Serum Total Protein Albumin Globulin Albumin/Globulin Ratio Urine Color Yellow Urine Appearance Cloudy Urine pH 5.5 Ur Specific [place] 1.025 Urine Protein 30 Urine Glucose (UA) Negative Urine Ketones Trace Urine Blood Moderate H Urine Nitrite Positive H Urine Bilirubin Negative Urine Urobilinogen 0.2 Ur Leukocyte Esterase Large H Urine RBC 20-30 H Urine WBC Tntc H Ur Epithelial Cells 0 Urine Bacteria 3+ H Stool Occult Blood Positive 05/13/20 05/13/20 05/13/20 23:40 23:40 23:40 WBC 5.8 RBC 4.74 Hgb 13.4 Hct 41.5 MCV 87.7 MCH 28.3 MCHC 32.3 L RDW 15.5 H Plt Count 124 L MPV 8.9 Absolute Neuts (auto) 4.30 Absolute Lymphs (auto) 0.90 L Absolute Monos (auto) 0.50 Absolute Eos (auto) 0.00 Absolute Basos (auto) 0.00 Neutrophils % 74.6 Lymphocytes % 16.2 L Monocytes % 8.4 Eosinophils % 0.3 L Basophils % 0.5 PT 9.9 INR 1.00 PTT (SP) 24.5 D-Dimer, Quantitative 1860.0 H* pCO2 pO2 HCO3 ABG pH ABG O2 Saturation ABG Base Excess ABG Deoxyhemoglobin Oxyhemoglobin % Carboxyhemoglobin % Methemoglobin % Sat Calc Total Hemoglobin Sodium 138 Potassium 3.8 Chloride 105 Carbon Dioxide 24 Anion Gap 12.8 BUN 17 Creatinine 0.79 BUN/Creatinine Ratio 21.5 H Random Glucose 195 H Serum Osmolality 282.6 Lactic Acid Calcium 8.3 L Total Bilirubin 0.7 AST 23 ALT 19 Alkaline Phosphatase 85 Creatine Kinase 28 CK-MB (CK-2) 0.4 CK-MB (CK-2) % Not Reportable Troponin I < 0.02 Serum Total Protein 7.6 Albumin 3.3 Globulin 4.3 H Albumin/Globulin Ratio 0.8 L Urine Color Urine Appearance Urine pH Ur Specific [place] Urine Protein Urine Glucose (UA) Urine Ketones Urine Blood Urine Nitrite Urine Bilirubin Urine Urobilinogen Ur Leukocyte Esterase Urine RBC Urine WBC Ur Epithelial Cells Urine Bacteria Stool Occult Blood 05/13/20 23:40 WBC RBC Hgb Hct MCV MCH MCHC RDW Plt Count MPV Absolute Neuts (auto) Absolute Lymphs (auto) Absolute Monos (auto) Absolute Eos (auto) Absolute Basos (auto) Neutrophils % Lymphocytes % Monocytes % Eosinophils % Basophils % PT INR PTT (SP) D-Dimer, Quantitative pCO2 pO2 HCO3 ABG pH ABG O2 Saturation ABG Base Excess ABG Deoxyhemoglobin Oxyhemoglobin % Carboxyhemoglobin % Methemoglobin % Sat Calc Total Hemoglobin Sodium Potassium Chloride Carbon Dioxide Anion Gap BUN Creatinine BUN/Creatinine Ratio Random Glucose Serum Osmolality Lactic Acid 1.4 Calcium Total Bilirubin AST ALT Alkaline Phosphatase Creatine Kinase CK-MB (CK-2) CK-MB (CK-2) % Troponin I Serum Total Protein Albumin Globulin Albumin/Globulin Ratio Urine Color Urine Appearance Urine pH Ur Specific [place] Urine Protein Urine Glucose (UA) Urine Ketones Urine Blood Urine Nitrite Urine Bilirubin Urine Urobilinogen Ur Leukocyte Esterase Urine RBC Urine WBC Ur Epithelial Cells Urine Bacteria Stool Occult Blood Vital Signs 05/13/20 05/13/20 05/13/20 21:50 22:30 23:00 Temperature 98.2 F 97.8 F Pulse Rate [ 92 H 99 H 91 H monitor] Respiratory 21 18 18 Rate Blood Pressure 154/93 163/93 181/115 [Left Arm] O2 Sat by Pulse 97 97 97 Oximetry 05/14/20 00:01 Temperature Pulse Rate [ 86 monitor] Respiratory 18 Rate Blood Pressure 180/89 [Left Arm] O2 Sat by Pulse 95 Oximetry Departure - Departure Clinical Impression: Dehydration Sepsis Qualifiers: Sepsis type: sepsis due to unspecified organism Sepsis acute organ dysfunction status: without acute organ dysfunction Qualified Code(s): A41.9 - Sepsis, unspecified organism Urinary tract infection Qualifiers: Urinary tract infection type: acute cystitis Hematuria presence: without hematuria Qualified Code(s): N30.00 - Acute cystitis without hematuria Time of Disposition: 01:05 Disposition: Admit Patient Condition: Serious Referrals: Ronald Holloway III, MD [Primary Care Provider] - 1-2 Weeks Home Medications: Ambulatory Orders Aspirin [Aspirin EC Low Dose] 81 mg PO DAILY #30 tab 09/04/17 Allopurinol 300 mg PO DAILY 10/13/17 Atorvastatin Calcium [Lipitor] 40 mg PO DAILY 10/13/17 Cyanocobalamin [Vitamin B-12] 1,000 mcg PO DAILY 10/13/17 Cyclobenzaprine HCl 10 mg PO Q8HR PRN 10/13/17 DULoxetine HCL [Cymbalta] 30 mg PO DAILY 10/13/17 Furosemide [Lasix] 20 mg PO DAILY 10/13/17 Gabapentin 300 mg PO TID 10/13/17 Glimepiride 4 mg PO BID 10/13/17 HYDROcodone 5MG/APAP 325MG [Central 5/325] 1 - 2 tablet PO Q6HR PRN 10/13/17 Insulin Lispro [Humalog] 100 unit SC ACHS 10/13/17 Isosorbide Mononitrate [Isosorbide Mononitrate ER] 60 mg PO DAILY 10/13/17 Levothyroxine Sodium [Synthroid] 100 mcg PO QAM 10/13/17 Meclizine HCl 25 mg PO Q6HR PRN 10/13/17 Meloxicam 15 mg PO DAILY 10/13/17 Memantine HCl [Namenda Xr] 28 mg PO DAILY 10/13/17 Metformin HCl [Metformin Hydrochloride] 1,000 mg PO BID 10/13/17 Metoprolol Tartrate 50 mg PO BID 10/13/17 Nitroglycerin 0.4 mg SL PRN PRN 10/13/17 Potassium Chloride [Potassium Chloride ER] 10 meq PO DAILY 10/13/17 Ranitidine HCl [Ranitidine 75] 75 mg PO BID 10/13/17 Tramadol HCl 50 mg PO TID PRN 10/13/17 Bifidobacterium Infantis [Align] 4 mg PO BID cap 10/18/17 Insulin Detemir [Levemir] 12 unit SUBCU BEDTIME #1 pen 10/23/17 Insulin Detemir [Levemir] 20 unit SUBCU DAILY #1 pen 10/23/17 Nitrofurantoin Monohydrate Mac [Macrobid] 100 mg PO BID 7 Days #14 capsule 07/22/18 Critical Care Note - Critical Care Note Total Time (mins): 40 Decision To Admit - Decistion To Admit Decision to Admit Date: 05/14/20 Decision to Admit Time: 00:25
--- NOTE | 2020-05-14 00:56 | HP ---
SUPERVISING PHYSICIAN: Peter Brush MD CHIEF COMPLAINT: Acute confusion. HISTORY OF PRESENT ILLNESS: Ms. Villanueva is a 74-year-old female patient who resides at [facility] and presented to the Emergency Room via 911 with altered mental status. History and physical are limited due to the patient's confusion and limited chart review. Initial workup in the Emergency Room indicated the patient was afebrile with a temperature of 98.2, pulse 92, blood pressure 154/93, oxygen saturation 97% on room air. Initial lab showed normal white count with no left shift. Coagulation studies did show an elevated D-dimer of 1860, INR and CBC normal. Blood gas analysis showed a P02 of 67 on room air, oxygen saturation 93%. Chemistries showed normal electrolytes, creatinine 0.79, lactic acid normal at 1.4. Liver functions are all within normal limits. C-reactive protein was elevated at 6.1, BNP normal, magnesium low at 1.7. Urinalysis did show a positive nitrite with a moderate amount of blood. Microscopic revealed 20 to 30 RBCs with significant WBCs and 3+ bacteria. She does have a history of diabetes and given the fact that she resides at [facility] with a high prevalence of Covid-19 infection and patient showing some evidence of possibly similar type infection she was tested for Covid-19 and found to be positive. Her x-ray initially in the Emergency Room showed bilateral hazy lung opacities. Cultures were completed on her urine and she was started on antibiotics in the Emergency Room but she does have multiple allergies including Cephalosporin, fluoroquinolone and sulfa antibiotics. She has a history of multi-drug resistant organisms in the past as well as resides in a unit known for a high infectious rate of MRSA. She is now going to be admitted for Covid-19 pneumonia with underlying urinary tract infection and sepsis with acute mental status change. PAST MEDICAL HISTORY: 1. Hypothyroidism. 2. Previous cerebrovascular accident with left-sided residual weakness. 3. Coronary artery disease. 4. Congestive heart failure of unknown etiology with no echocardiogram available at time of admission. 5. Diabetes mellitus, type 2. 6. Hypertension. 7. Hyperlipidemia. 8. Reactive airways disease. 9. Gout. 10. Obstructive sleep apnea with CPAP at home. PAST SURGICAL HISTORY: 1. Appendectomy. 2. Unilateral oophorectomy. 3. Complete hysterectomy. 4. Cholecystectomy. CURRENT MEDICATIONS: Please see an updated list in the electronic medical record to home medications from the half-way. ALLERGIES: IODINE, FLUOROQUINOLONES, CEPHALOSPORINS, SULFA, REGLAN, ADHESIVE TAPE. SOCIAL HISTORY: She is retired, she is . She has no children. She denies any alcohol or illicit drug use. She has never smoked. She resides at [facility]. REVIEW OF SYSTEMS: CONSTITUTIONAL: Positive for general malaise and chills, no reported fever. HEENT: Negative for any headaches, vision changes, sore throat, nasal congestion, earache. RESPIRATORY: She does have a cough with some mild shortness of breath, no wheezing. CARDIAC: Negative for chest pain, tachycardia or palpitations. GASTROINTESTINAL: Negative for nausea, vomiting or diarrhea or constipation. GENITOURINARY: Denies any actual dysuria, polyuria or hematuria. NEUROLOGIC: As noted in history of present illness. Previous CVA with right- sided weakness, although not detectable on this admission. She is denying any syncopal episodes, dizziness or headaches. PHYSICAL EXAMINATION: VITAL SIGNS: Temperature 98.2. Pulse 92. Blood pressure 154/93. Respirations 21. Oxygen saturation 97% on room air. GENERAL: The patient appears to be resting comfortably. She does look ill in appearance but she is know to be a little obese. She looks to be well-hydrated. HEENT: Tympanic membranes clear bilaterally. Oropharynx is pink, with some notable dry mucous membranes. NECK: Supple, nontender with full range of motion. CHEST: Mild rhonchi heard diffusely throughout. No wheezing or rales. HEART: Regular rate and rhythm without appreciable murmurs, rubs, or gallops. ABDOMEN: Soft, nontender with positive bowel sounds. EXTREMITIES: No cyanosis, clubbing or edema. NEUROLOGIC: The patient is oriented to herself. No obvious neuromotor deficits were noted. LABORATORY: White count 5,800, hemoglobin 13.4, hematocrit 41.5. Platelet count 119,000, differential showed to be without a left shift. Coagulation studies showed an elevated D-dimer at 1860 with a PT of 9.9, INR 1 and PTT of 24.5. Blood gas analysis did show a hypoxia with a P02 of 67, that was on room air with a pH of 7.45, saturation 93%. Initial chemistries on admission showed normal electrolytes with BUN of 17, creatinine 1.79, blood sugar 195, calcium 8.3. Liver functions all within normal limits. Troponin less than 0.02. Urinalysis showed a moderate amount of blood, positive nitrites with a large ament of leukodermas, 20 to 30 RBCs, too numerous to count WBCs, no epithelials, 3+ bacteria. She did have one occult stool blood that was positive. MICROBIOLOGY: Urine culture pending. RADIOLOGY: Chest x-ray in the Emergency Room per radiology interpretation showed nonspecific hazy bilateral lung opacities. ASSESSMENT: 1. Covid-19 pneumonia with positive Covid test. 2. Sepsis secondary to #1 and underlying urinary tract infection with cultures pending. 3. Acute mental status change with confusion secondary to #1 and #1. 4. Hypoxemia on room air secondary to #1 with elevated D-dimer and C-reactive protein consistent with Covid-19 pneumonia. 5. History of transient ischemic attacks. 7. Diabetes mellitus type 2. 8. 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 Johnson in [place]. 7. History of cerebrovascular accidents with some residual left sided weakness. 8. Hypothyroidism. 9. Hypertension. . 10. Congestive heart failure of unknown etiology with no echocardiogram available at time of admission. PLAN: Ms. Villanueva is going to be admitted for treatment of both underlying urinary tract infection and Covid-19 pneumonia. She will be on DVD prophylaxis per protocol. We put her on p.r.n. breathing treatments and will schedule those as needed. She will be on Decadron 6 mg daily. I would anticipate her length of stay to be at least 2 to 3 days. Until we can transition her to outpatient management, we will continue to monitor and treat as needed. [facility][id number] [facility]
[2020-05-14] MEDS ORDERED: ONDANSETRON INJ 4 MG/2 ML VIAL IV PRN (02:12)
[2020-05-14] MEDS ORDERED: DEXTROSE 50% 25 GM/50 ML SYG IV PRN (02:12)
[2020-05-14] MEDS ORDERED: SODIUM CHLORIDE 0.9% (FLUSH) 10 ML SYG IV PRN (02:12)
[2020-05-14] MEDS ORDERED: GLUCAGON INJ 1 MG VIAL SUBCU PRN (02:12)
[2020-05-14] MEDS ORDERED: SODIUM CHL 0.9% 50ML MIN-BAG+ 50 ML IVPB ONE (02:29)
[2020-05-14] MEDS ORDERED: MEROPENEM 1 GM VIAL IVPB ONE (02:29)
[2020-05-14] MEDS ORDERED: VANCOMYCIN PER PHARMACY IVPB SCH (02:30)
[2020-05-14] MEDS: MEROPENEM 1 GM in SODIUM CHL 0.9% 50ML MIN-BAG+ 50 ML IVPB SCH ×3 (02:32→18:13)
[2020-05-14] MEDS: IV SET AND CAP CHANGE INJ INJ SCH (02:33)
[2020-05-14] MEDS: PANTOPRAZOLE SODIUM IV 40 MG VIAL IV SCH (06:15)
[2020-05-14] MEDS: INSULIN LISPRO 100 UNITS/ML PEN SUBCU SCH ×4 (09:34→21:00)
[2020-05-14] MEDS: ENOXAPARIN SODIUM 40 MG/0.4 ML SYG SUBCU SCH (09:34)
[2020-05-14] MEDS ORDERED: LOPERAMIDE CAP 2 MG CAP PO ONE (10:20)
[2020-05-14] MEDS ORDERED: ALBUTEROL INHALER 64 PUFF/8GM INH PRN (13:15)
[2020-05-14] MEDS: DEXAMETHASONE INJ 10 MG/ML VIAL IV SCH (14:12)
[2020-05-14] MEDS: ISOSORBIDE MONONITRATE (IMDUR) 30 MG TAB PO SCH (14:14)
[2020-05-14] MEDS: GABAPENTIN 300 MG CAP PO SCH ×2 (14:14→20:33)
[2020-05-14] MEDS: METOPROLOL TARTRATE 50 MG TAB PO SCH ×2 (14:14→20:33)
[2020-05-14] MEDS: VANCOMYCIN HCL INJ 1,750 MG in SODIUM CHLORIDE 0.9% 500ML 500 ML IVPB SCH (14:16)
[2020-05-14] MEDS ORDERED: PROMETHAZINE W/CODEINE SYR 5 ML UD PO PRN (14:44)
[2020-05-14] MEDS: VANCOMYCIN ORAL LIQUID 2,000 MG/80 ML BOTTLE PO SCH (18:13)
[2020-05-14] MEDS ORDERED: BIFIDOBACTERIUM INFANTIS 4 MG CAP ONE (19:11)
[2020-05-14] MEDS ORDERED: ATORVASTATIN 20 MG TAB PO ONE (19:12)
[2020-05-14] MEDS: ATORVASTATIN 20 MG TAB PO SCH (20:33)
[2020-05-14] MEDS: BIFIDOBACTERIUM INFANTIS 4 MG CAP PO SCH (20:33)
[2020-05-14] MEDS ORDERED: RANITIDINE HCL 75 MG PO SCH (21:00)
[2020-05-15] MEDS: VANCOMYCIN ORAL LIQUID 2,000 MG/80 ML BOTTLE PO SCH ×4 (00:21→17:55)
[2020-05-15] MEDS: MEROPENEM 1 GM in SODIUM CHL 0.9% 50ML MIN-BAG+ 50 ML IVPB SCH ×3 (02:21→17:55)
[2020-05-15] MEDS ORDERED: LEVOTHYROXINE SODIUM 0.1 MG TAB ONE (05:07)
[2020-05-15] MEDS: VANCOMYCIN HCL INJ 1,750 MG in SODIUM CHLORIDE 0.9% 500ML 500 ML IVPB SCH (05:46)
[2020-05-15] MEDS: PANTOPRAZOLE SODIUM IV 40 MG VIAL IV SCH (05:47)
[2020-05-15] MEDS: LEVOTHYROXINE SODIUM 0.1 MG TAB PO SCH (06:04)
[2020-05-15] MEDS: INSULIN LISPRO 100 UNITS/ML PEN SUBCU SCH ×4 (08:08→21:15)
[2020-05-15] MEDS: ISOSORBIDE MONONITRATE (IMDUR) 30 MG TAB PO SCH (09:06)
[2020-05-15] MEDS: DULoxetine HCL 30 MG CAP PO SCH (09:06)
[2020-05-15] MEDS: ALLOPURINOL 300 MG TAB PO SCH (09:06)
[2020-05-15] MEDS: METOPROLOL TARTRATE 50 MG TAB PO SCH ×2 (09:06→21:03)
[2020-05-15] MEDS: ASPIRIN (ENTERIC COATED) 81 MG TAB PO SCH (09:06)
[2020-05-15] MEDS: FUROSEMIDE 40 MG TAB PO SCH (09:07)
[2020-05-15] MEDS: GABAPENTIN 300 MG CAP PO SCH ×3 (09:07→21:04)
[2020-05-15] MEDS: BIFIDOBACTERIUM INFANTIS 4 MG CAP PO SCH ×2 (09:07→21:03)
[2020-05-15] MEDS: POTASSIUM CHLORIDE 10 MEQ TAB PO SCH (09:07)
[2020-05-15] MEDS: DEXAMETHASONE INJ 10 MG/ML VIAL IV SCH (09:07)
[2020-05-15] MEDS: ENOXAPARIN SODIUM 40 MG/0.4 ML SYG SUBCU SCH (09:08)
[2020-05-15] MEDS: NON-FORMULARY MEDICATION 1 EA MIS (Memantine Hcl [Namenda Xr] 28 MG) PO SCH (10:12)
[2020-05-15] MEDS: ATORVASTATIN 20 MG TAB PO SCH (21:03)
[2020-05-15] MEDS: ACETAMINOPHEN 325 MG TAB PO PRN (21:56)
[2020-05-16] MEDS: VANCOMYCIN ORAL LIQUID 2,000 MG/80 ML BOTTLE PO SCH ×4 (00:04→17:59)
[2020-05-16] MEDS: VANCOMYCIN HCL INJ 1,750 MG in SODIUM CHLORIDE 0.9% 500ML 500 ML IVPB SCH ×2 (00:10→18:38)
[2020-05-16] MEDS: MEROPENEM 1 GM in SODIUM CHL 0.9% 50ML MIN-BAG+ 50 ML IVPB SCH ×2 (02:16→10:32)
[2020-05-16] MEDS: PANTOPRAZOLE SODIUM IV 40 MG VIAL IV SCH (06:00)
[2020-05-16] MEDS: LEVOTHYROXINE SODIUM 0.1 MG TAB PO SCH (06:12)
[2020-05-16] MEDS: INSULIN LISPRO 100 UNITS/ML PEN SUBCU SCH ×4 (07:30→21:17)
[2020-05-16] MEDS: FUROSEMIDE 40 MG TAB PO SCH (09:25)
[2020-05-16] MEDS: POTASSIUM CHLORIDE 10 MEQ TAB PO SCH (09:30)
[2020-05-16] MEDS: DEXAMETHASONE INJ 10 MG/ML VIAL IV SCH (09:30)
[2020-05-16] MEDS: ENOXAPARIN SODIUM 40 MG/0.4 ML SYG SUBCU SCH (09:30)
[2020-05-16] MEDS: DULoxetine HCL 30 MG CAP PO SCH (09:30)
[2020-05-16] MEDS: ASPIRIN (ENTERIC COATED) 81 MG TAB PO SCH (09:30)
[2020-05-16] MEDS: GABAPENTIN 300 MG CAP PO SCH ×3 (09:30→20:58)
[2020-05-16] MEDS: ISOSORBIDE MONONITRATE (IMDUR) 30 MG TAB PO SCH (09:30)
[2020-05-16] MEDS: ALLOPURINOL 300 MG TAB PO SCH (09:30)
[2020-05-16] MEDS: METOPROLOL TARTRATE 50 MG TAB PO SCH ×2 (09:30→20:58)
[2020-05-16] MEDS: BIFIDOBACTERIUM INFANTIS 4 MG CAP PO SCH ×2 (09:30→20:58)
[2020-05-16] MEDS: NON-FORMULARY MEDICATION 1 EA MIS (Memantine Hcl [Namenda Xr] 28 MG) PO SCH (10:30)
--- NOTE | 2020-05-16 11:51 | RAD ---
EXAM: Chest,1 View CLINICAL INDICATION: COVID-19 COMPARISON: 05/13/2020 FINDINGS: A single view of the chest was obtained. The heart size is normal. The pulmonary vascularity is mildly prominent. Mild bilateral perihilar infiltrates are noted which appear increased from the prior study. There is no pneumothorax or pleural effusion. IMPRESSION: Mild CHF and mild bilateral perihilar infiltrates which appear worse than the previous study. Electronically signed by: Jorge Asif MD 05/16/2020 11:49 AM CDT
[2020-05-16] MEDS ORDERED: ALBUTEROL INHALER 64 PUFF/8GM INH SCH (12:00)
[2020-05-16] MEDS: cefTRIAXone SODIUM 1 GM in SODIUM CHL 0.9% 50ML MIN-BAG+ 50 ML IVPB SCH (12:00)
[2020-05-16] MEDS ORDERED: ALBUTEROL SULFATE 2.5 MG/3 ML VIAL NEB ONE (12:22)
[2020-05-16] MEDS: AZITHROMYCIN IV 500 MG in SODIUM CHLORIDE 0.9% 250ML 250 ML IVPB SCH (12:55)
[2020-05-16] MEDS: ALBUTEROL SULFATE 2.5 MG/3 ML VIAL NEB SCH ×4 (13:00→20:30)
[2020-05-16] MEDS: ACETAMINOPHEN 325 MG TAB PO PRN (14:36)
--- NOTE | 2020-05-16 17:11 | PN ---
DATE: 05/15/20 SUPERVISING PHYSICIAN: Peter Brush MD SUBJECTIVE: The patient is sitting up in bed, she is quite confused. Nurses have reported that she has been confused since she was admitted, although fairly cooperative. She does het hypoxic and her oxygen saturation dropped into the 80s with exertion but otherwise, there have been no major issues. OBJECTIVE: VITAL SIGNS: Temperature 98, heart rate 71, blood pressure 112/71, respiratory rate 18 to 20, oxygen saturation 94% on 2 liters nasal cannula. RESPIRATORY: Scattered rhonchi throughout with somewhat diminished at the bases. She does get tachypneic at times with more than 2 to 3-word phrases. HEART: Regular rate and rhythm. GI: Abdomen soft, nondistended, non-tender. Bowel sounds are positive. NEUROLOGIC: She is awake and alert but confused. She is oriented to person only. LABORATORY: Her sugars have run between 185 and 357. Clostridium difficile antigen positive, toxin negative. Lab reports are pending. Preliminary blood cultures showed no growth after 24 hours. All other labs and films have been reviewed via the EMR. ASSESSMENT: 1. Covid-19 pneumonia with positive Covid test. Her labs on admission for D-dimer was 1860. WBCs were normal at 4.8. She was hypoxic on her blood gas with a P02 of 67. Magnesium was low at 1.7. C-reactive protein was 6.1. 2. Sepsis secondary to #1 and underlying urinary tract infection with cultures pending. 3. Acute mental status change with confusion secondary to #1 and #2. 4. Hypoxemia on room air secondary to #1 with elevated D-dimer and C-reactive protein consistent with Covid-19 pneumonia. 5. Clostridium difficile infection, on oral vancomycin. 6. Diabetes mellitus. 7. 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 8. History of cerebrovascular accidents with some residual left sided weakness. 9. Hypothyroidism. 10. Hypertension. . 11. Congestive heart failure of unknown etiology with no echocardiogram available at this time. 12. History of transient ischemic attacks. PLAN: We will continue present supportive care. We will monitor her labs as they become available. She is presently on Decadron, Lovenox, Merrem and vancomycin. I have ordered chest x-ray and routine lab plus Covid lab for in the morning. We may need to reevaluate her antibiotics and change to azithromycin as per guidelines. We will continue to monitor her closely and follow as needed #[id number] [facility]
[2020-05-16] MEDS: ATORVASTATIN 20 MG TAB PO SCH (20:58)
--- NOTE | 2020-05-16 21:56 | PN ---
SUPERVISING PHYSICIAN: Peter Brush M.D. DATE: 05/16/20 SUBJECTIVE: The patient is sitting up in bed. She is less confused today than she was yesterday. She does answer a few simple questions without any problems. She denies any nausea or vomiting or chest pain. OBJECTIVE: VITAL SIGNS: Temperature 99.1, heart rate 66, blood pressure 137/89, respiratory rate 16, O2 saturation 96% on 1 liter nasal cannula. RESPIRATORY: Diminished breath sounds throughout, but otherwise clear to auscultation. CARDIAC: Regular rate and rhythm. GASTROINTESTINAL: Abdomen is soft, nondistended, non-tender. Bowel sounds are positive. NEUROLOGIC: She is awake and alert. Answers some simple questions. She is oriented to person only. LABORATORY: WBCs are 8.2 with hemoglobin 13, hematocrit 39.4. She does have a left shift on her differential. Platelet count is low at 127. Lymphocytes are also low at 9.5. D-dimer is 2,600 with a blood gas that shows hypoxia with a pO2 of 62. Magnesium is 1.7, LD is 196, C reactive protein is up to 8.2 with a BNP of 247. Blood cultures show no growth after 24 hours. Urine culture is pending. Chest x-ray shows mild CHF and bilateral perihilar infiltrates which appear worse from the previous study. All other labs and films have been reviewed via the EMR. ASSESSMENT: 1. Covid-19 pneumonia with positive Covid test. Her labs on admission for D-dimer was 1860. WBCs were normal at 4.8. She was hypoxic on her blood gas with a P02 of 67. Magnesium was low at 1.7. C-reactive protein was 6.1. 2. Sepsis secondary to #1 and underlying urinary tract infection with cultures pending. 3. Acute mental status change with confusion secondary to #1 and #2. 4. Hypoxemia on room air secondary to #1 with elevated D-dimer and C-reactive protein consistent with Covid-19 pneumonia. 5. Clostridium difficile infection, on oral vancomycin. 6. Diabetes mellitus. 7. 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 8. History of cerebrovascular accidents with some residual left sided weakness. 9. Hypothyroidism. 10. Hypertension. . 11. Congestive heart failure of unknown etiology with no echocardiogram available at this time. 12. History of transient ischemic attacks. PLAN: We will continue present supportive care, including aggressive pulmonary hygiene and her current IV piggybacks of Rocephin, azithromycin and her p.o. Vancomycin. Will also continue with her Decadron. Will monitor her cultures as they become available. I have ordered routine lab and COVID lab in the morning as well as a chest x-ray. I have also added p.r.n. and scheduled nebulizers with a COVID mask as she could not tolerate the inhaler. Hopefully her chemical picture improves and she can be discharged in the next 2 or 3 days. #[id number] and [id number] [facility]
[2020-05-17] MEDS: VANCOMYCIN ORAL LIQUID 2,000 MG/80 ML BOTTLE PO SCH ×5 (00:15→23:54)
[2020-05-17] MEDS: IV SET AND CAP CHANGE INJ INJ SCH (03:30)
[2020-05-17] MEDS: PANTOPRAZOLE SODIUM IV 40 MG VIAL IV SCH (05:41)
[2020-05-17] MEDS: LEVOTHYROXINE SODIUM 0.1 MG TAB PO SCH (06:10)
--- NOTE | 2020-05-17 07:21 | RAD ---
EXAM DESCRIPTION: Chest,1 View CLINICAL HISTORY: covid COMPARISON: May 16, 2020 FINDINGS: Cardiac silhouette is enlarged but stable. Mediastinal contours are otherwise unremarkable. The central bronchovascular markings are indistinct. Patchy airspace consolidation in the mid and lower left lung. Question tiny left-sided pleural effusion. There is no pneumothorax or acute fracture. IMPRESSION: Abnormal exam as detailed above, unchanged from May 16, 2020. Findings are consistent with edema or pneumonia especially viral or other atypical infection. Electronically signed by: Haris Blair MD 05/17/2020 7:19 AM CDT
[2020-05-17] MEDS: ALBUTEROL SULFATE 2.5 MG/3 ML VIAL NEB SCH ×5 (08:00→19:50)
[2020-05-17] MEDS: FUROSEMIDE 40 MG TAB PO SCH (08:29)
[2020-05-17] MEDS: ASPIRIN (ENTERIC COATED) 81 MG TAB PO SCH (08:30)
[2020-05-17] MEDS: ISOSORBIDE MONONITRATE (IMDUR) 30 MG TAB PO SCH (08:30)
[2020-05-17] MEDS: ALLOPURINOL 300 MG TAB PO SCH (08:30)
[2020-05-17] MEDS: GABAPENTIN 300 MG CAP PO SCH ×3 (08:30→20:46)
[2020-05-17] MEDS: POTASSIUM CHLORIDE 10 MEQ TAB PO SCH (08:30)
[2020-05-17] MEDS: DULoxetine HCL 30 MG CAP PO SCH (08:30)
[2020-05-17] MEDS: METOPROLOL TARTRATE 50 MG TAB PO SCH ×2 (08:30→20:45)
[2020-05-17] MEDS: DEXAMETHASONE INJ 10 MG/ML VIAL IV SCH ×3 (08:31→20:45)
[2020-05-17] MEDS: ENOXAPARIN SODIUM 40 MG/0.4 ML SYG SUBCU SCH (08:31)
[2020-05-17] MEDS: BIFIDOBACTERIUM INFANTIS 4 MG CAP PO SCH ×2 (08:34→20:46)
[2020-05-17] MEDS: INSULIN LISPRO 100 UNITS/ML PEN SUBCU SCH ×5 (08:44→23:06)
[2020-05-17] MEDS ORDERED: ENOXAPARIN SODIUM 60 MG/0.6 ML SYG SUBCU SCH (13:30)
[2020-05-17] MEDS: NON-FORMULARY MEDICATION 1 EA MIS (Memantine Hcl [Namenda Xr] 28 MG) PO SCH (13:49)
--- NOTE | 2020-05-17 13:51 | PN ---
SUPERVISING PHYSICIAN: Garcia Wong MD DATE: 05/17/20 SUBJECTIVE: The patient is awake and eating her breakfast this morning. She is a little bit less confused than she was the past few days. OBJECTIVE: VITAL SIGNS: Blood pressure 124/68, heart rate 67, respiratory rate 16, temperature 97.5, oxygen saturation 98% on 1 liter nasal cannula. GENERAL: Ms. Villanueva is a 74-year-old female who is ill in appearance, but does not appear in any active distress currently. NEUROLOGIC: Alert and oriented. She answers simple questions. No focal deficits. LUNGS: Diminished in the bases. No rhonchi. CARDIOVASCULAR: Regular rate and rhythm. Normal S1, S2. ABDOMEN: Soft. Positive bowel sounds. GENITOURINARY: Deferred. EXTREMITIES: Lower extremities with no edema. LABORATORY: White count 5.9, hemoglobin 12.6, platelet count 119. D-dimer elevated at 2760. Chemistry shows sodium 135, potassium 3.8, chloride 105, CO2 20, BUN 17, creatinine 0.63, glucose 255, calcium 8.1. C-reactive protein 8.9. RADIOLOGY: Chest x-ray with no acute changes. ASSESSMENT: 1. COVID-19 pneumonia. 2. Altered mental status, appears to be improving. 3. Hypoxemia secondary to #1. 4. Clostridium difficile infection. 5. Diabetes mellitus, type 2. 6. Partial blindness. 7. History of cerebrovascular accidents with residual left sided weakness. 8. Hypothyroidism. 9. Hypertension. 10. Congestive heart failure with no exacerbation. PLAN: At this time due to the increasing CRP and D-dimer, I am going to increase the dose of steroids as well as her Lovenox. We will continue all other medications at this time. We will repeat labs tomorrow, but she does not need another x-ray at this point given no changes. #[id number] [facility]
[2020-05-17] MEDS: cefTRIAXone SODIUM 1 GM in SODIUM CHL 0.9% 50ML MIN-BAG+ 50 ML IVPB SCH (14:20)
[2020-05-17] MEDS: AZITHROMYCIN IV 500 MG in SODIUM CHLORIDE 0.9% 250ML 250 ML IVPB SCH (14:26)
[2020-05-17] MEDS: VANCOMYCIN HCL INJ 1,750 MG in SODIUM CHLORIDE 0.9% 500ML 500 ML IVPB SCH (15:11)
[2020-05-17] MEDS ORDERED: ENOXAPARIN SODIUM 100 MG/ML SYG SUBCU ONE (19:53)
[2020-05-17] MEDS: ATORVASTATIN 20 MG TAB PO SCH (20:44)
[2020-05-17] MEDS: ACETAMINOPHEN 325 MG TAB PO PRN (20:44)
[2020-05-17] MEDS: ENOXAPARIN SODIUM 100 MG/ML SYG SUBCU SCH (21:31)
[2020-05-18] MEDS: VANCOMYCIN ORAL LIQUID 2,000 MG/80 ML BOTTLE PO SCH ×3 (05:36→17:48)
[2020-05-18] MEDS: DEXAMETHASONE INJ 10 MG/ML VIAL IV SCH ×3 (05:36→21:24)
[2020-05-18] MEDS: PANTOPRAZOLE SODIUM IV 40 MG VIAL IV SCH (06:08)
[2020-05-18] MEDS: LEVOTHYROXINE SODIUM 0.1 MG TAB PO SCH (06:08)
[2020-05-18] MEDS: INSULIN LISPRO 100 UNITS/ML PEN SUBCU SCH ×4 (07:25→22:36)
--- NOTE | 2020-05-18 08:22 | PN ---
DATE: 05/18/20 SUBJECTIVE: The patient is sitting upright with oxygen on, currently eating breakfast. She states she slept well overnight, no big changes from her end. She dos have a little baseline confusion, but this seems to be normal baseline on chart review. OBJECTIVE: VITAL SIGNS: Blood pressure 138/72, pulse 50, temperature 97.6, respiratory rate 18, oxygen saturation 98% on 2 liters nasal cannula. GENERAL: No change from previous day. NEUROLOGIC: Alert and oriented. She answers simple questions. No focal deficits. LUNGS: Diminished in the bases. No rhonchi. CARDIOVASCULAR: Regular rate and rhythm. Normal S1, S2. ABDOMEN: Soft. Positive bowel sounds. GENITOURINARY: Deferred. EXTREMITIES: Lower extremities with no edema. LABORATORY: WBC 6.0, hemoglobin 11.7, hematocrit 35.7, platelet count increased to 135. D-dimer trending down to 934. Sodium 134, potassium 4.2, chloride 105, CO2 of 20, BUN 21, creatinine 0.65, glucose slightly trending down to 339. CRP now 4.3 down from 8.9. . IMAGING: No new imaging for the day. PLAN: Unchanged from previous day. Currently, her CRP and D-dimer have decreased. We can continue Lovenox and steroids as currently prescribed. No other changes to medications. The only lab left to follow is C-diff. We will continue all other care. #[id number] [facility]
[2020-05-18] MEDS: GABAPENTIN 300 MG CAP PO SCH ×3 (09:03→21:23)
[2020-05-18] MEDS: METOPROLOL TARTRATE 50 MG TAB PO SCH ×2 (09:04→22:36)
[2020-05-18] MEDS: FUROSEMIDE 40 MG TAB PO SCH (09:04)
[2020-05-18] MEDS: POTASSIUM CHLORIDE 10 MEQ TAB PO SCH (09:04)
[2020-05-18] MEDS: BIFIDOBACTERIUM INFANTIS 4 MG CAP PO SCH ×2 (09:04→21:23)
[2020-05-18] MEDS: ALLOPURINOL 300 MG TAB PO SCH (09:05)
[2020-05-18] MEDS: DULoxetine HCL 30 MG CAP PO SCH (09:05)
[2020-05-18] MEDS: ISOSORBIDE MONONITRATE (IMDUR) 30 MG TAB PO SCH (09:05)
[2020-05-18] MEDS: ASPIRIN (ENTERIC COATED) 81 MG TAB PO SCH (09:06)
[2020-05-18] MEDS: ALBUTEROL SULFATE 2.5 MG/3 ML VIAL NEB SCH ×4 (09:11→20:00)
[2020-05-18] MEDS: ENOXAPARIN SODIUM 100 MG/ML SYG SUBCU SCH ×2 (09:17→21:23)
[2020-05-18] MEDS: NON-FORMULARY MEDICATION 1 EA MIS (Memantine Hcl [Namenda Xr] 28 MG) PO SCH (10:11)
[2020-05-18] MEDS: cefTRIAXone SODIUM 1 GM in SODIUM CHL 0.9% 50ML MIN-BAG+ 50 ML IVPB SCH (11:42)
[2020-05-18] MEDS: AZITHROMYCIN IV 500 MG in SODIUM CHLORIDE 0.9% 250ML 250 ML IVPB SCH (12:36)
[2020-05-18] MEDS: ATORVASTATIN 20 MG TAB PO SCH (21:23)
[2020-05-19] MEDS: VANCOMYCIN ORAL LIQUID 2,000 MG/80 ML BOTTLE PO SCH ×3 (00:17→11:49)
[2020-05-19] MEDS ORDERED: DEXAMETHASONE INJ 4 MG/ML VIAL ONE (03:46)
[2020-05-19] MEDS: DEXAMETHASONE INJ 10 MG/ML VIAL IV SCH ×2 (05:30→12:52)
[2020-05-19] MEDS ORDERED: PANTOPRAZOLE SODIUM TAB 40 MG PO SCH (06:30)
[2020-05-19] MEDS: ALBUTEROL SULFATE 2.5 MG/3 ML VIAL NEB SCH ×2 (08:17→11:45)
[2020-05-19] MEDS: INSULIN LISPRO 100 UNITS/ML PEN SUBCU SCH ×2 (08:39→11:48)
[2020-05-19] MEDS: LEVOTHYROXINE SODIUM 0.1 MG TAB PO SCH (08:40)
[2020-05-19] MEDS: FUROSEMIDE 40 MG TAB PO SCH (09:29)
[2020-05-19] MEDS: ALLOPURINOL 300 MG TAB PO SCH (09:29)
[2020-05-19] MEDS: BIFIDOBACTERIUM INFANTIS 4 MG CAP PO SCH (09:29)
[2020-05-19] MEDS: GABAPENTIN 300 MG CAP PO SCH (09:29)
[2020-05-19] MEDS: ASPIRIN (ENTERIC COATED) 81 MG TAB PO SCH (09:29)
[2020-05-19] MEDS: METOPROLOL TARTRATE 50 MG TAB PO SCH (09:29)
[2020-05-19] MEDS: DULoxetine HCL 30 MG CAP PO SCH (09:30)
[2020-05-19] MEDS: POTASSIUM CHLORIDE 10 MEQ TAB PO SCH (09:30)
[2020-05-19] MEDS: NON-FORMULARY MEDICATION 1 EA MIS (Memantine Hcl [Namenda Xr] 28 MG) PO SCH (09:31)
[2020-05-19] MEDS: ENOXAPARIN SODIUM 100 MG/ML SYG SUBCU SCH (09:31)
[2020-05-19] MEDS: ISOSORBIDE MONONITRATE (IMDUR) 30 MG TAB PO SCH (09:31)
[2020-05-19] MEDS: cefTRIAXone SODIUM 1 GM in SODIUM CHL 0.9% 50ML MIN-BAG+ 50 ML IVPB SCH (11:24)
[2020-05-19] MEDS: AZITHROMYCIN IV 500 MG in SODIUM CHLORIDE 0.9% 250ML 250 ML IVPB SCH (12:15)
[2020-05-19 13:38] VITALS: BP 153/80; TEMP 97.6; O2SAT 99
--- NOTE | 2020-05-20 14:13 | DS ---
SUPERVISING PHYSICIAN: Garcia Wong MD ADMISSION DIAGNOSIS: 1. COVID-19 pneumonia. 2. Altered mental status, appears to be improving. 3. Hypoxemia secondary to #1. 4. Clostridium difficile infection. 5. Diabetes mellitus, type 2. 6. Partial blindness. 7. History of cerebrovascular accidents with residual left sided weakness. 8. Hypothyroidism. 9. Hypertension. 10. Congestive heart failure with no exacerbation. DISCHARGE DIAGNOSIS: 1. COVID-19 pneumonia. 2. Altered mental status, appears to be improving. 3. Hypoxemia secondary to #1. 4. Clostridium difficile infection. 5. Diabetes mellitus, type 2. 6. Partial blindness. 7. History of cerebrovascular accidents with residual left sided weakness. 8. Hypothyroidism. 9. Hypertension. 10. Congestive heart failure, unknown etiology, with no exacerbation. HISTORY OF PRESENT ILLNESS: This is a 74-year-old female patient who is a resident of [facility]. She presented to the Emergency Room via EMS with altered mental status. Her temperature was 98.2, pulse 92, blood pressure 154/93, oxygen saturation 97% on room air. Initial lab showed normal white count with no left shift. Coagulation studies did show an elevated D- dimer of 1860, INR and CBC normal. Blood gas analysis showed a PO2 of 67 on room air, oxygen saturation 93%. Her electrolytes were within normal limits with a creatinine 0.79, lactic acid at 1.4. Liver functions were within normal limits. C-reactive protein was elevated at 6.1, BNP normal, magnesium low at 1.7. Urinalysis showed positive nitrites with a moderate amount of blood. Microscopic revealed 20 to 30 RBCs with significant WBCs and 3+ bacteria. She does have a history of diabetes. There was a high prevalence of COVID-19 and she was tested for COVID-19 and found to be positive. Her x-ray initially in the Emergency Room showed bilateral hazy lung opacities. Cultures were completed and she was started on antibiotics. She does have multiple allergies including cephalosporins, fluoroquinolones and sulfa antibiotics as well as history of multi-drug resistant organisms in the past as well as resides in a unit known for a high infectious rate of MRSA. She was admitted with COVID-19 pneumonia with underlying urinary tract infection and sepsis with acute mental status changes. HOSPITAL COURSE: She was given Decadron 6 mg daily as well as placed on DVT prophylaxis. She was started on antibiotics and COVID guidelines were followed. She was quite confused initially and continued to have multiple episodes of confusion, but she was cooperative. She then complained of some loose stools. She tested positive for C. difficile antigen, negative for C. difficile toxin. She was placed on p.o. vancomycin. Over the next several days, her coagulation studies were up and down. Her Lovenox was increased to 1 mg per kg q.12h. She was switched to azithromycin and ceftriaxone. Although it was reported that she did have an allergy, there was no record of any problems with the infusion and she tolerated the Rocephin without any problem. She progressively improved. She will be discharged back to [facility] today. LABORATORY: WBCs remained stable at 5.8 to 8.2. Hemoglobin and hematocrit were stable at 11.5 and 34.4. She initially had a left shift on her differential and that continued throughout her stay. Her lymphocytes were low. Her D-dimer started at 1860. It went up as high as 2760 and today on discharge, it was 471. Fibrinogen was 500. PTT, PT were within normal limits. Electrolytes were basically within normal limits. She did have a low magnesium at one time at 1.7 and received supplementation and it went up to 1.8. Calcium was slightly low at 8.2. She had several glucose readings in the 500s, but those were treated and are down to 255. C-reactive protein initially was 6.9, went up as high as 8.9 and today is 1.8. LD was as high as 196. MICROBIOLOGY: Stool for occult blood was positive. Her final blood cultures showed no growth after 5 days. Urine culture showed Klebsiella pneumoniae urinary tract infection that was sensitive to Rocephin and cephalosporins. IMAGING: Her final chest x-ray showed cardiac silhouette enlarged, but stable mediastinal contours. Otherwise, unremarkable. Central bronchovascular markings are indistinct. Patch airspace consolidation in the mid and lower left lung. Question of tiny left sided pleural effusion. There is no pneumothorax or acute fracture. Her echocardiogram is unavailable at this time. DISCHARGE PLAN: The patient will be discharged to [facility] in fair condition. She is to resume her previous diet and increase her activity as tolerated. She is to followup with Dr. Holloway within one to two weeks. It is recommended that she have lab work done as well as followup chest x-ray. In addition to her routine medications, she will have albuterol sulfate nebulizers, Eliquis for 30 days, azithromycin, cefdinir, dexamethasone and vancomycin oral liquid. She is to return to the hospital or followup with Dr. Holloway for any problems or complications. DISCHARGE MEDICATIONS: 1. Aspirin. 2. Metformin. 3. Glimepiride. 4. Metoprolol. 5. Potassium chloride. 6. Allopurinol. 7. Gabapentin. 8. Furosemide. 9. Namenda. 10. Synthroid. 11. Ranitidine. 12. Nitroglycerin. 13. Meloxicam. 14. Tramadol. 15. Atorvastatin. 16. Cyclobenzaprine. 17. Hydrocodone. 18. Cyanocobalamin. 19. Meclizine. 20. Duloxetine. 21. Humalog insulin. 22. Isosorbide. 23. Align. 24. Levemir. 25. Albuterol. 26. Eliquis. 27. Azithromycin. 28. Cefdinir. 29. Dexamethasone. 30. Vancomycin oral. [facility][id number] [facility]
== END 2020-05-19 14:52 | DRG 871 ==
LOC: ER 21:45 → MS 05-14 00:54 → OBSVTOIN 05-14 00:54
PROVIDERS: ADMIT Nurse Practitioner Family; ATTEND Nurse Practitioner Acute Care
DX: A41.89 Other specified sepsis (principal); U07.1 COVID-19; J12.89 Other viral pneumonia; N30.00 Acute cystitis without hematuria; I69.354 Hemiplegia and hemiparesis following cerebral infarction affecting left non-dominant side; A04.72 Enterocolitis due to Clostridium difficile, not specified as recurrent; R09.02 Hypoxemia; E86.0 Dehydration; E11.9 Type 2 diabetes mellitus without complications; E03.9 Hypothyroidism, unspecified; I11.0 Hypertensive heart disease with heart failure; I50.9 Heart failure, unspecified; I25.10 Atherosclerotic heart disease of native coronary artery without angina pectoris; E78.5 Hyperlipidemia, unspecified; J45.909 Unspecified asthma, uncomplicated; M10.9 Gout, unspecified; G47.33 Obstructive sleep apnea (adult) (pediatric); Z66 Do not resuscitate; Z91.048 Other nonmedicinal substance allergy status; Z88.3 Allergy status to other anti-infective agents; Z88.1 Allergy status to other antibiotic agents; Z88.2 Allergy status to sulfonamides; Z88.8 Allergy status to other drugs, medicaments and biological substances; E66.9 Obesity, unspecified; Z79.4 Long term (current) use of insulin; Z79.82 Long term (current) use of aspirin; Z79.1 Long term (current) use of non-steroidal anti-inflammatories (NSAID); Z79.891 Long term (current) use of opiate analgesic; Z79.899 Other long term (current) drug therapy; Z68.34 Body mass index [BMI] 34.0-34.9, adult

== ENCOUNTER 2020-08-11 07:43 | Observation (INO) | payer MEDICARE ==
[2020-08-11] MEDS ORDERED: CHLORHEXIDINE GLUCONATE 4 % 15 ML UD TOP ONE (08:11)
--- NOTE | 2020-08-11 08:16 | ED.PDOC ---
History of Present Illness - General Chief Complaint: Neuro Symptoms/Deficits Stated Complaint: decreased LOC Time Seen by Provider: 08/11/20 08:08 - History of Present Illness Initial Comments: 75 yo F PMH recurrent UTI and admission for AMS presents to ED sent from alf for altered mental status that seems to occur when patient has UTI. Pt. is non verbal and unable to participate in history and physical exam but followed nurse command to put her arm up. NAD offers no complaints is hemodynamicvally stable at this time. PPE worn-N95 surgical mask with attached face shield over N95 gloves and face shield over that Allergies/Adverse Reactions: Allergies Iodine Allergy (Verified 11/28/17 14:59) Levofloxacin [From Levaquin] Allergy (Verified 11/28/17 14:59) Sulfa Drugs Allergy (Verified 11/28/17 14:59) Ceftriaxone Adverse Reaction (Unknown, Verified 05/20/20 13:20) Rash upon attempted iv dose, pt began sweating and itching all over her body plastic tape Allergy (Uncoded 11/28/17 14:59) Home Medications: Ambulatory Orders Aspirin [Aspirin EC Low Dose] 81 mg PO DAILY #30 tab 09/04/17 Allopurinol 300 mg PO DAILY 10/13/17 Atorvastatin Calcium [Lipitor] 40 mg PO DAILY 10/13/17 Cyanocobalamin [Vitamin B-12] 1,000 mcg PO DAILY 10/13/17 DULoxetine HCL [Cymbalta] 30 mg PO DAILY 10/13/17 Furosemide [Lasix] 20 mg PO DAILY 10/13/17 Gabapentin 300 mg PO TID 10/13/17 Insulin Lispro [Humalog] 100 unit SC ACHS 10/13/17 Isosorbide Mononitrate [Isosorbide Mononitrate ER] 30 mg PO DAILY 10/13/17 Levothyroxine Sodium [Synthroid] 100 mcg PO QAM 10/13/17 Meclizine HCl 25 mg PO Q6HR PRN 10/13/17 Metformin HCl [Metformin Hydrochloride] 500 mg PO BID 10/13/17 Metoprolol Tartrate 25 mg PO BID 10/13/17 Potassium Chloride [Potassium Chloride ER] 10 meq PO DAILY 10/13/17 Apixaban [Eliquis] 5 mg PO BID #60 tab 05/19/20 Acetaminophen W/ Codeine [Tylenol W/ CODEINE #3] 2 tab PO Q6H PRN 08/11/20 Acetaminophen [Acetaminophen Extra Stren] 1,000 mg PO Q6H PRN 08/11/20 Acetaminophen [Tylenol] 650 mg PO Q6H PRN 08/11/20 Ascorbic Acid [Vitamin C] 1,000 mg PO DAILY 08/11/20 Cetirizine HCl [Allergy Relief] 10 mg PO DAILY 08/11/20 Cholecalciferol [Vitamin D3] 1,000 unit PO DAILY 08/11/20 Fluticasone Propionate (Nasal) [Fluticasone Propionate Na] 50 mcg NA Q12H 08/11/20 Guaifenesin 800 mg PO Q8H PRN 08/11/20 Insulin Glargine [Basaglar Kwikpen] 15 unit SC DAILY 08/11/20 Insulin Lispro [Humalog Kwikpen] 2 unit SC AC 08/11/20 Lactobacillus [Acidophilus] 1 cap PO BID 08/11/20 Memantine HCl [Namenda Xr] 28 mg PO DAILY 08/11/20 Pantoprazole Sodium 40 mg PO DAILY 08/11/20 Zinc 50 mg PO DAILY 08/11/20 Review of Systems - Review of Systems Constitutional: States: see HPI EENTM: States: see HPI Respiratory: States: see HPI Cardiology: States: see HPI Gastrointestinal/Abdominal: States: see HPI Genitourinary: States: see HPI Musculoskeletal: States: see HPI Skin: States: see HPI Neurological: States: see HPI Endocrine: States: see HPI Hematologic/Lymphatic: States: see HPI All other Systems: No Change from Baseline Past Medical History (General) - Patient Medical History Hx Seizures: No Hx Stroke: Yes Hx Dementia: Yes Hx Asthma: No Hx of COPD: No Hx Cardiac Disorders: Yes Hx Congestive Heart Failure: No Hx Pacemaker: No Hx Hypertension: Yes Hx Thyroid Disease: Yes Hx Diabetes: Yes Hx Gastroesophageal Reflux: No Hx Renal Disease: No Hx Cancer: No Hx of HIV: No Hx Hepatitis C: No Hx MRSA: No - Vaccination History Hx Tetanus, Diphtheria Vaccination: No Hx Influenza Vaccination: No Hx Pneumococcal Vaccination: Yes - Social History Hx Tobacco Use: No Hx Chewing Tobacco Use: No Hx Alcohol Use: No Hx Substance Use: No Hx Substance Use Treatment: No Hx Depression: No Hx Physical Abuse: No Hx Emotional Abuse: No Hx Suspected Abuse: No - Activities of Daily Living Fpc/Assisted Living (if applicable):: [facility] - Female History Patient : No Family Medical History - Family History Mother Family History: No Known Living Status: Hx Family Asthma: No Hx Family Hypertension: Yes Hx Family Stroke: Yes Hx Cardiac Disease: Yes Hx Family Diabetes: Yes Hx Family Cancer: No Hx Family;Other: migraines mom Father Living Status: Hx Family Asthma: No Hx Family Congestive Heart Failure: Yes Hx Family Hypertension: Yes Hx Family Stroke: Yes Hx Cardiac Disease: Yes Hx Family Diabetes: Yes Hx Family Cancer: No Physical Exam - Physical Exam General Appearance: No apparent distress Eye Exam: bilateral normal Ears, Nose, Throat: normal ENT inspection Neck: normal inspection Respiratory: no respiratory distress Cardiovascular/Chest: regular rate, rhythm Gastrointestinal/Abdominal: non tender, soft Rectal Exam: deferred Back Exam: normal inspection Extremity: normal inspection Neurologic: aphasia Skin Exam: normal color Progress - Progress Progress: 08/11/20 08:19 A/P-AMS, Recurrent UTI-iv bolus cardiac cath lab radiology technologist pulse ox ct head cbc cmp lactate troponin BNP cxr blood cultures straight cath aztreopnam vancomycin respiratory panel reassess 08/11/20 10:26 Laboratory Tests 08/11/20 08/11/20 08/11/20 08:15 08:15 08:15 WBC 12.9 H RBC 4.85 Hgb 13.9 Hct 43.5 MCV 89.8 MCH 28.6 MCHC 31.9 L RDW 15.5 H Plt Count 146 MPV 9.3 Absolute Neuts (auto) 9.10 H Absolute Lymphs (auto) 2.80 Absolute Monos (auto) 0.70 Absolute Eos (auto) 0.20 Absolute Basos (auto) 0.00 Neutrophils % 70.7 Lymphocytes % 21.8 Monocytes % 5.3 Eosinophils % 1.8 Basophils % 0.4 PT INR PTT (SP) Sodium 141 Potassium 4.1 Chloride 106 Carbon Dioxide 20 L Anion Gap 19.1 H BUN 18 Creatinine 0.67 BUN/Creatinine Ratio 26.9 H Random Glucose 146 H Serum Osmolality 285.8 Lactic Acid Calcium 8.9 Total Bilirubin 0.5 AST 20 ALT 19 Alkaline Phosphatase 95 Troponin I < 0.02 B-Natriuretic Peptide Serum Total Protein 6.8 Albumin 3.4 Globulin 3.4 Albumin/Globulin Ratio 1.0 L Lipase 42 Urine Color Urine Appearance Urine pH Ur Specific [place] Urine Protein Urine Glucose (UA) Urine Ketones Urine Blood Urine Nitrite Urine Bilirubin Urine Urobilinogen Ur Leukocyte Esterase Urine RBC Urine WBC Ur Epithelial Cells Amorphous Sediment Urine Bacteria 08/11/20 08/11/20 08/11/20 08:20 09:00 09:00 WBC RBC Hgb Hct MCV MCH MCHC RDW Plt Count MPV Absolute Neuts (auto) Absolute Lymphs (auto) Absolute Monos (auto) Absolute Eos (auto) Absolute Basos (auto) Neutrophils % Lymphocytes % Monocytes % Eosinophils % Basophils % PT 10.5 INR 1.06 PTT (SP) 24.8 Sodium Potassium Chloride Carbon Dioxide Anion Gap BUN Creatinine BUN/Creatinine Ratio Random Glucose Serum Osmolality Lactic Acid 2.2 Calcium Total Bilirubin AST ALT Alkaline Phosphatase Troponin I B-Natriuretic Peptide Serum Total Protein Albumin Globulin Albumin/Globulin Ratio Lipase Urine Color Yellow Urine Appearance Cloudy Urine pH 5.5 Ur Specific [place] >= 1.030 Urine Protein Trace Urine Glucose (UA) Negative Urine Ketones Trace Urine Blood Trace-intact H Urine Nitrite Positive H Urine Bilirubin Negative Urine Urobilinogen 0.2 Ur Leukocyte Esterase Small H Urine RBC Obscured by wbc's H Urine WBC Tntc H Ur Epithelial Cells Obscured by wbc's Amorphous Sediment 4+ Urine Bacteria 4+ H 08/11/20 08/11/20 09:00 09:57 WBC RBC Hgb Hct MCV MCH MCHC RDW Plt Count MPV Absolute Neuts (auto) Absolute Lymphs (auto) Absolute Monos (auto) Absolute Eos (auto) Absolute Basos (auto) Neutrophils % Lymphocytes % Monocytes % Eosinophils % Basophils % PT INR PTT (SP) Sodium Potassium Chloride Carbon Dioxide Anion Gap BUN Creatinine BUN/Creatinine Ratio Random Glucose Serum Osmolality Lactic Acid Calcium Total Bilirubin AST ALT Alkaline Phosphatase Troponin I < 0.02 B-Natriuretic Peptide 19.2 Serum Total Protein Albumin Globulin Albumin/Globulin Ratio Lipase Urine Color Urine Appearance Urine pH Ur Specific [place] Urine Protein Urine Glucose (UA) Urine Ketones Urine Blood Urine Nitrite Urine Bilirubin Urine Urobilinogen Ur Leukocyte Esterase Urine RBC Urine WBC Ur Epithelial Cells Amorphous Sediment Urine Bacteria Dx-UTI, Lactic Acidosis, Dehydration, AMS EXAM DESCRIPTION: Chest,1 View CLINICAL HISTORY: AMS COMPARISON: May 17, 2020 IMPRESSION: Single AP portable upright view of the chest shows cardiac silhouette and pulmonary vasculature to be within normal limits. Lungs are mildly hypoaerated without acute appearing infiltrate or consolidation.. No obvious pleural effusion or pneumothorax is seen. Electronically signed by: Peña Gracia MD 08/11/2020 8:58 AM CDT EXAM DESCRIPTION: Head CLINICAL HISTORY: AMS COMPARISON: January 10, 2020 TECHNIQUE: Noncontrast transaxial CT images of the head are obtained from base to vertex. This exam was performed according to our departmental dose- optimization program, which includes automated exposure control, adjustment of the mA and/or kV according to patient size and/or use of iterative reconstruction technique. FINDINGS: The midline structures are not displaced. Sulci are age-appropriate. There are areas of decreased attenuation in the periventricular white matter and the white matter of the centrum semiovale. Mu ltiple focal areas of supratentorial and infratentorial areas of old ischemia with encephalomalacic changes have a similar appearance to previous exam. Moderate calcifications of the intracranial carotid arteries. There is no evidence of mass, mass-effect, hydrocephalus, or acute intracranial hemorrhage. No abnormal extra axial fluid collection is seen. Bone windows show no evidence of depressed skull fracture. The visualized paranasal sinuses are unremarkable. IMPRESSION: 1. Age-appropriate atrophy with evidence of old small vessel ischemic type changes seen. 2. No acute abnormality is seen on noncontrast CT of the head. 3. 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 - Results/Orders Results/Orders: EKG-non specific TW changes No STEMI NSR 64bpm Gerry Montalvo accepts Departure - Departure Clinical Impression: Lactic acid acidosis Altered mental status Qualifiers: Altered mental status type: unspecified Qualified Code(s): R41.82 - Altered mental status, unspecified UTI (urinary tract infection) Qualifiers: Urinary tract infection type: site unspecified Hematuria presence: with hematuria Qualified Code(s): N39.0 - Urinary tract infection, site not specified; R31.9 - Hematuria, unspecified Leukocytosis Qualifiers: Leukocytosis type: unspecified Qualified Code(s): D72.829 - Elevated white blood cell count, unspecified Disposition: Admit Patient Condition: Fair Departure Forms: ED Discharge - Pt. Copy, Patient Portal Self Enrollment Referrals: Ronald Holloway III, MD [Primary Care Provider] - 1-2 Weeks Home Medications: Ambulatory Orders Aspirin [Aspirin EC Low Dose] 81 mg PO DAILY #30 tab 09/04/17 Allopurinol 300 mg PO DAILY 10/13/17 Atorvastatin Calcium [Lipitor] 40 mg PO DAILY 10/13/17 Cyanocobalamin [Vitamin B-12] 1,000 mcg PO DAILY 10/13/17 DULoxetine HCL [Cymbalta] 30 mg PO DAILY 10/13/17 Furosemide [Lasix] 20 mg PO DAILY 10/13/17 Gabapentin 300 mg PO TID 10/13/17 Insulin Lispro [Humalog] 100 unit SC ACHS 10/13/17 Isosorbide Mononitrate [Isosorbide Mononitrate ER] 30 mg PO DAILY 10/13/17 Levothyroxine Sodium [Synthroid] 100 mcg PO QAM 10/13/17 Meclizine HCl 25 mg PO Q6HR PRN 10/13/17 Metformin HCl [Metformin Hydrochloride] 500 mg PO BID 10/13/17 Metoprolol Tartrate 25 mg PO BID 10/13/17 Potassium Chloride [Potassium Chloride ER] 10 meq PO DAILY 10/13/17 Apixaban [Eliquis] 5 mg PO BID #60 tab 05/19/20 Acetaminophen W/ Codeine [Tylenol W/ CODEINE #3] 2 tab PO Q6H PRN 08/11/20 Acetaminophen [Acetaminophen Extra Stren] 1,000 mg PO Q6H PRN 08/11/20 Acetaminophen [Tylenol] 650 mg PO Q6H PRN 08/11/20 Ascorbic Acid [Vitamin C] 1,000 mg PO DAILY 08/11/20 Cetirizine HCl [Allergy Relief] 10 mg PO DAILY 08/11/20 Cholecalciferol [Vitamin D3] 1,000 unit PO DAILY 08/11/20 Fluticasone Propionate (Nasal) [Fluticasone Propionate Na] 50 mcg NA Q12H 08/11/20 Guaifenesin 800 mg PO Q8H PRN 08/11/20 Insulin Glargine [Basaglar Kwikpen] 15 unit SC DAILY 08/11/20 Insulin Lispro [Humalog Kwikpen] 2 unit SC AC 08/11/20 Lactobacillus [Acidophilus] 1 cap PO BID 08/11/20 Memantine HCl [Namenda Xr] 28 mg PO DAILY 08/11/20 Pantoprazole Sodium 40 mg PO DAILY 08/11/20 Zinc 50 mg PO DAILY 08/11/20 Decision To Admit - Decistion To Admit Decision to Admit Date: 08/11/20 Decision to Admit Time: 10:38
[2020-08-11] MEDS ORDERED: SODIUM CHLORIDE 0.9% 1000ML 1,000 ML IVS ONE (08:27)
--- NOTE | 2020-08-11 08:59 | RAD ---
EXAM DESCRIPTION: Chest,1 View CLINICAL HISTORY: AMS COMPARISON: May 17, 2020 IMPRESSION: Single AP portable upright view of the chest shows cardiac silhouette and pulmonary vasculature to be within normal limits. Lungs are mildly hypoaerated without acute appearing infiltrate or consolidation.. No obvious pleural effusion or pneumothorax is seen. Electronically signed by: Peña Gracia MD 08/11/2020 8:58 AM CDT
--- NOTE | 2020-08-11 09:02 | CT ---
EXAM DESCRIPTION: Head CLINICAL HISTORY: AMS COMPARISON: January 10, 2020 TECHNIQUE: Noncontrast transaxial CT images of the head are obtained from base to vertex. This exam was performed according to our departmental dose-optimization program, which includes automated exposure control, adjustment of the mA and/or kV according to patient size and/or use of iterative reconstruction technique. FINDINGS: The midline structures are not displaced. Sulci are age-appropriate. There are areas of decreased attenuation in the periventricular white matter and the white matter of the centrum semiovale. Multiple focal areas of supratentorial and infratentorial areas of old ischemia with encephalomalacic changes have a similar appearance to previous exam. Moderate calcifications of the intracranial carotid arteries. There is no evidence of mass, mass-effect, hydrocephalus, or acute intracranial hemorrhage. No abnormal extra axial fluid collection is seen. Bone windows show no evidence of depressed skull fracture. The visualized paranasal sinuses are unremarkable. IMPRESSION: 1. Age-appropriate atrophy with evidence of old small vessel ischemic type changes seen. 2. No acute abnormality is seen on noncontrast CT of the head. 3. 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
--- NOTE | 2020-08-11 11:00 | HP ---
SUPERVISING PHYSICIAN: Garcia Wong MD CHIEF COMPLAINT: Altered mental status. HISTORY OF PRESENT ILLNESS: This is a 75-year-old female who is a [facility] resident with advanced dementia who came in due to altered mental status. She has a significant dementia with not much interaction chronically, but even worse today. Apparently she has had multiple urinary tract infections in the past that have resulted in similar presentations. In the Emergency Room, she was seen and noted to have a leukocytosis with white cell count of 12.9. Chemistry was rather unremarkable. Lactate was normal. BNP was 19.2. Urinalysis was done and showed too numerous to count WBCs in the urine with 4+ bacteria and positive nitrites. Therefore, she was referred for admission for altered mental status and urinary tract infection. At the time of examination, the patient was awake and says "yes" and "no" and follows very simple commands, but other than that is really not too interactive. PAST MEDICAL HISTORY: 1. Hypothyroidism. 2. Previous cerebrovascular accident with left sided weakness. 3. Coronary artery disease. 4. Congestive heart failure. 5. Diabetes mellitus, type 2. 6. Hypertension. 7. Hyperlipidemia. 8. Reactive airway disease. 9. Gout. 10. Obstructive sleep apnea with CPAP. PAST SURGICAL HISTORY: 1. Cholecystectomy. 2. Hysterectomy. 3. Appendectomy. MEDICATIONS: Please see [facility] rec list once verified in the computer. ALLERGIES: IODINE, FLUOROQUINOLONE, CEPHALOSPORIN, REGLAN, SULFA, ADHESIVE TAPE. FAMILY HISTORY: Not obtainable from the patient due to her longstanding dementia. SOCIAL HISTORY: Per the previous record, she is retired, , no children. No smoking, no drinking, no illicit drugs. She is a [facility] resident. REVIEW OF SYSTEMS: Unable to be obtained due to her dementia and acute altered mental status. PHYSICAL EXAMINATION: VITAL SIGNS: Blood pressure 135/93, heart rate 66, respiratory rate 18, temperature 96.3, oxygen saturation 95%. GENERAL: This is a 89-year-old female who is in no active distress currently. She is chronically ill in appearance. NEUROLOGIC: The patient is alert, follows simple commands and states simple yes/no answers, but unable to give me person, place and time answers. LUNGS: Diminished in the bases, but otherwise clear to auscultation bilaterally. CARDIOVASCULAR: Regular rate and rhythm. Normal S1, S2. ABDOMEN: Soft. Positive bowel sounds. GENITOURINARY: Deferred. EXTREMITIES: Lower extremities with some ankle edema. Pulses 2+. Capillary refill is less than 2 seconds. RADIOLOGY: She did have a CT scan of the head which was unremarkable. Chest x- ray was also noted to have no acute abnormality. IMPRESSION: 1. Altered mental status, which is likely acute delirium on chronic dementia secondary to a metabolic encephalopathy. 2. Urinary tract infection. 3. Hypothyroidism. 4. History of cerebrovascular accident with residual left sided weakness. 5. History of congestive heart failure with no acute exacerbation. 6. Diabetes mellitus, type 2. 7. Hypertension. 8. Hyperlipidemia. PLAN: At this point, the patient will be admitted with intravenous fluids as well as empiric antibiotics. She has allergies to Levaquin and ceftriaxone, therefore, we will need to utilize meropenem at this point. We will follow cultures and deescalate if we can. I am going to place her back on her home medications and place her on sliding scale insulin along with some Levemir. She utilizes insulin glargine at the correction, but we will utilize Levemir here as we do not have that medication. I will check her TSH in the morning along with her other labs to ensure she is getting the correct dose of levothyroxine. #[id number] [facility]
[2020-08-11] MEDS ORDERED: SODIUM CHLORIDE 0.9% (FLUSH) 10 ML SYG IV PRN (12:07)
[2020-08-11] MEDS ORDERED: GLUCAGON INJ 1 MG VIAL SUBCU PRN (12:23)
[2020-08-11] MEDS ORDERED: DEXTROSE 50% 25 GM/50 ML SYG IV PRN (12:23)
[2020-08-11] MEDS ORDERED: IV SET AND CAP CHANGE INJ INJ SCH (12:30)
[2020-08-11] MEDS ORDERED: ENOXAPARIN SODIUM 40 MG/0.4 ML SYG SUBCU SCH (12:30)
[2020-08-11] MEDS ORDERED: MEROPENEM 500 MG VIAL IVPB ONE (12:33)
[2020-08-11] MEDS ORDERED: SODIUM CHL 0.9% 50ML MIN-BAG+ 50 ML IVPB ONE (12:33)
[2020-08-11] MEDS: MEROPENEM 500 MG in SODIUM CHL 0.9% 50ML MIN-BAG+ 50 ML IVPB SCH ×2 (12:37→19:59)
[2020-08-11] MEDS: INSULIN LISPRO 100 UNITS/ML PEN SUBCU SCH ×2 (16:36→20:46)
[2020-08-11] MEDS: GABAPENTIN 300 MG CAP PO SCH ×2 (16:37→20:46)
[2020-08-11] MEDS: LACTATED RINGERS 1,000 ML IVS PRN (18:12)
[2020-08-11] MEDS ORDERED: METOPROLOL TARTRATE 25 MG TAB ONE (19:07)
[2020-08-11] MEDS ORDERED: APIXABAN 5 MG TAB PO ONE (19:07)
[2020-08-11] MEDS ORDERED: LACTOBACILLUS 1 TAB ONE (19:08)
[2020-08-11] MEDS ORDERED: metFORMIN HCL 500 MG TAB ONE (19:08)
[2020-08-11] MEDS: metFORMIN HCL 500 MG TAB PO SCH (20:46)
[2020-08-11] MEDS: APIXABAN 5 MG TAB PO SCH (20:46)
[2020-08-11] MEDS: LACTOBACILLUS 1 TAB PO SCH (20:48)
[2020-08-11] MEDS: METOPROLOL TARTRATE 50 MG TAB PO SCH (20:48)
[2020-08-11] MEDS ORDERED: NON-FORMULARY MEDICATION 1 EA MIS (Lactobacillus [Acidophilus] 1 CAP) PO SCH (21:00)
[2020-08-12] MEDS: LACTATED RINGERS 1,000 ML IVS PRN ×2 (04:23→15:15)
[2020-08-12] MEDS: MEROPENEM 500 MG in SODIUM CHL 0.9% 50ML MIN-BAG+ 50 ML IVPB SCH ×3 (04:25→20:28)
[2020-08-12] MEDS ORDERED: PANTOPRAZOLE SODIUM TAB 40 MG PO SCH (06:30)
[2020-08-12] MEDS: INSULIN LISPRO 100 UNITS/ML PEN SUBCU SCH ×4 (07:27→21:50)
[2020-08-12] MEDS ORDERED: NON-FORMULARY MEDICATION 1 EA MIS (Potassium Chloride [Potassium Chloride Er] 10 MEQ) PO SCH (09:00)
[2020-08-12] MEDS ORDERED: NON-FORMULARY MEDICATION 1 EA MIS (Cyanocobalamin [Vitamin B-12] 1,000 MCG) PO SCH (09:00)
[2020-08-12] MEDS ORDERED: ISOSORBIDE MONONITRATE PO SCH (09:00)
[2020-08-12] MEDS ORDERED: ZINC 50 MG PO SCH (09:00)
[2020-08-12] MEDS ORDERED: NON-FORMULARY MEDICATION 1 EA MIS (Cholecalciferol [Vitamin D3] 1,000 UNIT) PO SCH (09:00)
[2020-08-12] MEDS ORDERED: NON-FORMULARY MEDICATION 1 EA MIS (Atorvastatin Calcium [Lipitor] 40 MG) PO SCH (09:00)
[2020-08-12] MEDS ORDERED: ASCORBIC ACID 1000 MG PO SCH (09:00)
[2020-08-12] MEDS: CETIRIZINE HCL 10 MG TAB PO SCH (09:31)
[2020-08-12] MEDS: LEVOTHYROXINE SODIUM 0.1 MG TAB PO SCH (09:31)
[2020-08-12] MEDS: metFORMIN HCL 500 MG TAB PO SCH ×2 (09:31→20:28)
[2020-08-12] MEDS: GABAPENTIN 300 MG CAP PO SCH ×3 (09:31→20:28)
[2020-08-12] MEDS: ALLOPURINOL 300 MG TAB PO SCH (09:31)
[2020-08-12] MEDS: ZINC 50 MG CAPSULE PO SCH (09:31)
[2020-08-12] MEDS: DULoxetine HCL 30 MG CAP PO SCH (09:31)
[2020-08-12] MEDS: ASCORBIC ACID 500 MG TAB PO SCH (09:31)
[2020-08-12] MEDS: APIXABAN 5 MG TAB PO SCH ×2 (09:31→20:28)
[2020-08-12] MEDS: ATORVASTATIN 20 MG TAB PO SCH (09:32)
[2020-08-12] MEDS: ISOSORBIDE MONONITRATE (IMDUR) 30 MG TAB PO SCH (09:32)
[2020-08-12] MEDS: PANTOPRAZOLE SODIUM TAB 40 MG PO SCH (09:32)
[2020-08-12] MEDS: ASPIRIN (ENTERIC COATED) 81 MG TAB PO SCH (09:32)
[2020-08-12] MEDS: METOPROLOL TARTRATE 50 MG TAB PO SCH ×2 (09:33→20:28)
[2020-08-12] MEDS: CHOLECALCIFEROL 2,000 IU TAB PO SCH (09:34)
[2020-08-12] MEDS: CYANOCOBALAMIN 1,000 MCG TAB PO SCH (09:34)
[2020-08-12] MEDS: INSULIN DETEMIR 100 UNITS/ML PEN SUBCU SCH (09:34)
[2020-08-12] MEDS: LACTOBACILLUS 1 TAB PO SCH ×2 (09:35→20:10)
[2020-08-12] MEDS: NON-FORMULARY MEDICATION 1 EA MIS (Memantine Hcl [Namenda Xr] 28 MG) PO SCH (09:43)
[2020-08-13] MEDS: MEROPENEM 500 MG in SODIUM CHL 0.9% 50ML MIN-BAG+ 50 ML IVPB SCH (04:44)
[2020-08-13] MEDS: INSULIN LISPRO 100 UNITS/ML PEN SUBCU SCH ×2 (07:11→11:38)
--- NOTE | 2020-08-13 08:26 | PN ---
SUPERVISING PHYSICIAN: Garcia Wong MD DATE: 08/12/20 SUBJECTIVE: The patient seems to be doing well this morning. I have had her as a patient before and she seems to be at her baseline level mental status. She does have a history of multiple urinary tract infections. We are still waiting on cultures to come back before we can discharge her given she probably has a pretty resistant organism. She will remain on meropenem. She has been afebrile. She has no complaints. OBJECTIVE: VITAL SIGNS: Temperature 97.9, pulse 66, blood pressure 110/68, respirations 16, saturation 59% on room air. GENERAL: The patient is resting comfortably. She does not look to be in any distress. CHEST: Lungs are clear to auscultation bilaterally. No wheezes, rales or rhonchi. HEART: Regular rate and rhythm. ABDOMEN: Soft, nontender. Positive bowel sounds. EXTREMITIES: No cyanosis, clubbing or edema. NEUROLOGIC: Alert to herself, but otherwise does not the year or date. She appears to be at her baseline status. She does converse. LABORATORY: White count normalized at 6,100, hemoglobin stable at 12.8, hematocrit 38.7, platelet count 155,000. Differential without a left shift. Chemistry today shows normal electrolytes, creatinine 0.57. Blood sugars range between 173 to 301. TSH normal at 3.4. MICROBIOLOGY: She does have a gram negative glenys in her urine, but sensitivity is still pending. Blood cultures remain negative at 24 hours. RADIOLOGY: No additional radiographic studies. ASSESSMENT: 1. Altered mental status, which is likely acute delirium on chronic dementia secondary to a metabolic encephalopathy. 2. Urinary tract infection secondary to a gram negative glenys with sensitivities pending. 3. Hypothyroidism. 4. History of cerebrovascular accident with residual left sided weakness. 5. History of congestive heart failure with no acute exacerbation. 6. Diabetes mellitus, type 2. 7. Hypertension. 8. Hyperlipidemia. PLAN: We will continue with current plan of care at this point with meropenem. We can saline lock her as she is taking adequate oral intake. Once her cultures are back, I anticipate we will discharge her back to [facility]. She remains on sliding scale. Again, until the patient can transition to outpatient management, we will continue to monitor and treat as needed. [facility][id number] [facility]
[2020-08-13] MEDS: ASCORBIC ACID 500 MG TAB PO SCH (08:41)
[2020-08-13] MEDS: ISOSORBIDE MONONITRATE (IMDUR) 30 MG TAB PO SCH (08:42)
[2020-08-13] MEDS: CYANOCOBALAMIN 1,000 MCG TAB PO SCH (08:42)
[2020-08-13] MEDS: ATORVASTATIN 20 MG TAB PO SCH (08:42)
[2020-08-13] MEDS: GABAPENTIN 300 MG CAP PO SCH (08:42)
[2020-08-13] MEDS: ASPIRIN (ENTERIC COATED) 81 MG TAB PO SCH (08:42)
[2020-08-13] MEDS: ALLOPURINOL 300 MG TAB PO SCH (08:42)
[2020-08-13] MEDS: LEVOTHYROXINE SODIUM 0.1 MG TAB PO SCH (08:42)
[2020-08-13] MEDS: APIXABAN 5 MG TAB PO SCH (08:42)
[2020-08-13] MEDS: DULoxetine HCL 30 MG CAP PO SCH (08:42)
[2020-08-13] MEDS: CETIRIZINE HCL 10 MG TAB PO SCH (08:42)
[2020-08-13] MEDS: ZINC 50 MG CAPSULE PO SCH (08:42)
[2020-08-13] MEDS: PANTOPRAZOLE SODIUM TAB 40 MG PO SCH (08:42)
[2020-08-13] MEDS: metFORMIN HCL 500 MG TAB PO SCH (08:42)
[2020-08-13] MEDS: CHOLECALCIFEROL 2,000 IU TAB PO SCH (08:43)
[2020-08-13] MEDS: METOPROLOL TARTRATE 50 MG TAB PO SCH (08:43)
[2020-08-13] MEDS: LACTOBACILLUS 1 TAB PO SCH (08:44)
[2020-08-13] MEDS: INSULIN DETEMIR 100 UNITS/ML PEN SUBCU SCH (08:45)
[2020-08-13] MEDS: NON-FORMULARY MEDICATION 1 EA MIS (Memantine Hcl [Namenda Xr] 28 MG) PO SCH (08:52)
[2020-08-13] MEDS ORDERED: SODIUM CHLORIDE 0.9% (FLUSH) 10 ML SYG IV SCH (09:00)
[2020-08-13] MEDS ORDERED: ERTAPENEM 1 GM in SODIUM CHL 0.9% 50ML MIN-BAG+ 50 ML IVPB SCH (12:00)
[2020-08-13 16:37] VITALS: BP 155/78; TEMP 97.2; O2SAT 95
--- NOTE | 2020-08-14 13:43 | DS ---
SUPERVISING PHYSICIAN: Garcia Wong MD ADMISSION DIAGNOSES: 1. Altered mental status, which is likely acute delirium on chronic dementia secondary to a metabolic encephalopathy. 2. Urinary tract infection. 3. Hypothyroidism. 4. History of cerebrovascular accident with residual left sided weakness. 5. History of congestive heart failure with no acute exacerbation. 6. Diabetes mellitus, type 2. 7. Hypertension. 8. Hyperlipidemia. DISCHARGE DIAGNOSES: 1. Altered mental status, which is likely acute delirium on chronic dementia secondary to a metabolic encephalopathy. 2. Urinary tract infection secondary to E.coli, fairly resistant, showing resistance to Clindamycin, Tobramycin, Bactrim and Augmentin with the patient being allergic to cephalosporins and fluoroquinolones but sensitivity showing sensitive to Invanz. 3. Hypothyroidism. 4. History of cerebrovascular accident with residual left sided weakness. 5. History of congestive heart failure with no acute exacerbation. 6. Diabetes mellitus, type 2. 7. Hypertension. 8. Hyperlipidemia. REASON FOR HOSPITALIZATION: This is a 75-year-old female who is a longterm resident with advanced dementia who came in due to altered mental status. She has a significant dementia with not much interaction chronically, but even worse today. Apparently she has had multiple urinary tract infections in the past that have resulted in similar presentations. In the Emergency Room, she was seen and noted to have a leukocytosis with white cell count of 12.9. Chemistry was rather unremarkable. Lactate was normal. BNP was 19.2. Urinalysis was done and showed too numerous to count WBCs in the urine with 4+ bacteria and positive nitrites. Therefore, she was referred for admission for altered mental status and urinary tract infection. At the time of examination, the patient was awake and says "yes" and "no" and follows very simple commands, but other than that is really not too interactive. LABORATORY STUDIES: CBC within normal limits with white count of 6,100 prior to discharge. Coagulation studies showed normal PT/PTT. Chemistries showing normal electrolytes with creatinine 0.57, prior to discharge blood sugars ranged between 170 and 301. TSH normal at 3.34. Urinalysis did show sen infection with trace of intact blood, positive nitrites, small amount of leukoesterase, RBCs were obscured. WBCs too numerous to count on microscopic, 4+ amorphus and 4+ bacteria. MICROBIOLOGY: Blood cultures remained negative at 48 hours. Nasal swab was negative for Covid-19 and again, her final culture and sensitivity was showing E. coli in the urine which was resistant to Bactrim, gentamicin, Clindamycin, Augmentin and ampicillin. RADIOLOGY: She had a CT of the head and per radiology interpretation showed age-appropriate atrophy with evidence of small vessel ischemic type changes. No acute abnormalities seen. Please see that report for details. She also had a chest x-ray, plain single-view, showed no obvious pleural effusions or pneumothorax. No acute appearing infiltrates or consolidations. HOSPITAL COURSE: Ms. Villanueva was admitted for acute mental status changes secondary to underlying urinary tract infection. She was treated with meropenem pending culture results. She does have a history of multidrug resistant organisms in the past and has multiple allergies including Levofloxacin, sulfa and ceftriaxone. Final culture results did show an E. coli treated at that point with Invanz, after discussion with her primary care physician, Dr. Holloway, the plan is to do 5 days of continued treatment with Invanz at the longterm. The patient was showing to be back to baseline mental status and therefore, stable enough to continue with outpatient management. PLAN: Ms. Villanueva is discharged back to [facility]. She is to continue with her antibiotic therapy with Invanz and as she a difficult IV access patient she was put on IM Invanz one gram daily for 5 days, actually given a single dose IV before she left and was treated with meropenem prior to discharge. Diet was to resume normal diet as tolerated. Activities to resume all previous activities as tolerated. Other orders as per her longterm orders were continued as it prior to hospitalization. She is to followup with Dr. Holloway in one to two weeks, to call for an appointment. DISPOSITION: Patient was discharged back to [facility]. CONDITION ON DISCHARGE: Stable and improving. #[id number]
== END 2020-08-13 14:30 ==
LOC: ER 07:43 → MS 10:59
PROVIDERS: ADMIT Nurse Practitioner; ATTEND Nurse Practitioner Family
DX: R41.82 Altered mental status, unspecified (principal); F03.90 Unspecified dementia, unspecified severity, without behavioral disturbance, psychotic disturbance, mood disturbance, and anxiety; G93.41 Metabolic encephalopathy; N39.0 Urinary tract infection, site not specified; B96.20 Unspecified Escherichia coli [E. coli] as the cause of diseases classified elsewhere; Z16.24 Resistance to multiple antibiotics; E03.9 Hypothyroidism, unspecified; I69.354 Hemiplegia and hemiparesis following cerebral infarction affecting left non-dominant side; I11.0 Hypertensive heart disease with heart failure; I50.9 Heart failure, unspecified; E11.9 Type 2 diabetes mellitus without complications; E78.5 Hyperlipidemia, unspecified; I25.10 Atherosclerotic heart disease of native coronary artery without angina pectoris; M10.9 Gout, unspecified; G47.33 Obstructive sleep apnea (adult) (pediatric); Z11.59 Encounter for screening for other viral diseases; Z66 Do not resuscitate; Z87.440 Personal history of urinary (tract) infections; Z99.89 Dependence on other enabling machines and devices; Z79.4 Long term (current) use of insulin; Z79.01 Long term (current) use of anticoagulants; Z79.82 Long term (current) use of aspirin; Z79.890 Hormone replacement therapy; Z79.899 Other long term (current) drug therapy; Z88.1 Allergy status to other antibiotic agents; Z88.3 Allergy status to other anti-infective agents; Z88.2 Allergy status to sulfonamides; Z88.8 Allergy status to other drugs, medicaments and biological substances; Z91.048 Other nonmedicinal substance allergy status
CPT/HCPCS: 51701; 96361 ×2; 96366 ×2; 96365; 96375; 96376; 96372 ×3; J7030; J1335; J1815 ×2; J2185 ×6; J7050 ×7; J7120 ×3; 80048; 80053; 87086; 82948 ×8; 36415 ×5; 81001; 85025 ×2; 87040 ×2; 87186; 83690; 85730; 85610; 84443; 84484 ×2; 83880; 36416 ×9; 83605; 87088; 71045; 70450; 99285; 93005; G0378; 87635

== ENCOUNTER 2020-08-17 12:51 | Emergency (ER) | payer MEDICARE ==
--- NOTE | 2020-08-17 13:03 | ED.PDOC ---
History of Present Illness - General Chief Complaint: Blood Pressure Problem Stated Complaint: Low BP, continued AMS Time Seen by Provider: 08/17/20 12:59 Source: EMS notes reviewed, old records Additional Information: Pt sent from [facility] [place] [place] for a reported SBP of 64. Prior to that SBP was 124. Pt admitted from 08/11-08/13 for AMS and UTI. Pt arrived with d/c summary from hospitalization. Pt came in 08/11 with AMS. Admission dx was AMS likely delirium + underlying dementia related to metabolic encephalopathy/UTI. UCx showed E. Coli resistant to many abx, and with pt's medication allergies, was tx with Invanz. Staff did not send her over for concerns about worsened AMS, but BP alone. - History of Present Illness Timing/Duration: other - This morning Allergies/Adverse Reactions: Allergies Iodine Allergy (Verified 08/17/20 13:10) Levofloxacin [From Levaquin] Allergy (Verified 08/17/20 13:10) Sulfa Drugs Allergy (Verified 08/17/20 13:10) Ceftriaxone Adverse Reaction (Unknown, Verified 08/17/20 13:10) Rash upon attempted iv dose, pt began sweating and itching all over her body plastic tape Allergy (Uncoded 08/17/20 13:10) Home Medications: Ambulatory Orders Aspirin [Aspirin EC Low Dose] 81 mg PO DAILY #30 tab 09/04/17 Allopurinol 300 mg PO DAILY 10/13/17 Atorvastatin Calcium [Lipitor] 40 mg PO DAILY 10/13/17 Cyanocobalamin [Vitamin B-12] 1,000 mcg PO DAILY 10/13/17 DULoxetine HCL [Cymbalta] 30 mg PO DAILY 10/13/17 Furosemide [Lasix] 20 mg PO DAILY 10/13/17 Gabapentin 300 mg PO TID 10/13/17 Insulin Lispro [Humalog] 100 unit SC ACHS 10/13/17 Isosorbide Mononitrate [Isosorbide Mononitrate ER] 30 mg PO DAILY 10/13/17 Levothyroxine Sodium [Synthroid] 100 mcg PO QAM 10/13/17 Meclizine HCl 25 mg PO Q6HR PRN 10/13/17 Metformin HCl [Metformin Hydrochloride] 500 mg PO BID 10/13/17 Metoprolol Tartrate 25 mg PO BID 10/13/17 Potassium Chloride [Potassium Chloride ER] 10 meq PO DAILY 10/13/17 Apixaban [Eliquis] 5 mg PO BID #60 tab 05/19/20 Acetaminophen W/ Codeine [Tylenol W/ CODEINE #3] 2 tab PO Q6H PRN 08/11/20 Acetaminophen [Acetaminophen Extra Stren] 1,000 mg PO Q6H PRN 08/11/20 Acetaminophen [Tylenol] 650 mg PO Q6H PRN 08/11/20 Ascorbic Acid [Vitamin C] 1,000 mg PO DAILY 08/11/20 Cetirizine HCl [Allergy Relief] 10 mg PO DAILY 08/11/20 Cholecalciferol [Vitamin D3] 1,000 unit PO DAILY 08/11/20 Fluticasone Propionate (Nasal) [Fluticasone Propionate Na] 50 mcg NA Q12H 08/11/20 Guaifenesin 800 mg PO Q8H PRN 08/11/20 Insulin Glargine [Basaglar Kwikpen] 15 unit SC DAILY 08/11/20 Insulin Lispro [Humalog Kwikpen] 2 unit SC AC 08/11/20 Lactobacillus [Acidophilus] 1 cap PO BID 08/11/20 Memantine HCl [Namenda Xr] 28 mg PO DAILY 08/11/20 Pantoprazole Sodium 40 mg PO DAILY 08/11/20 Zinc 50 mg PO DAILY 08/11/20 Ertapenem [INVanz] 1 gm IM DAILY 5 Days #5 vial 08/13/20 Review of Systems - Review of Systems Constitutional: States: weakness - chronic. Denies: fever Respiratory: Denies: cough, short of breath Cardiology: Denies: syncope Gastrointestinal/Abdominal: Denies: diarrhea, vomiting Skin: Denies: change in color, lesions, rash Neurological: States: weakness - chronic Past Medical History (General) - Patient Medical History Hx Seizures: No Hx Stroke: Yes Hx Dementia: Yes Hx Asthma: No Hx of COPD: No Hx Cardiac Disorders: Yes Hx Congestive Heart Failure: No Hx Pacemaker: No Hx Hypertension: Yes Hx Thyroid Disease: Yes Hx Diabetes: Yes Hx Gastroesophageal Reflux: No Hx Renal Disease: No Hx Cancer: No Hx of HIV: No Hx Hepatitis C: No Hx MRSA: No - Vaccination History Hx Tetanus, Diphtheria Vaccination: No Hx Influenza Vaccination: No Hx Pneumococcal Vaccination: Yes - Social History Hx Tobacco Use: No Hx Chewing Tobacco Use: No Hx Alcohol Use: No Hx Substance Use: No Hx Substance Use Treatment: No Hx Depression: No Hx Physical Abuse: No Hx Emotional Abuse: No Hx Suspected Abuse: No - Female History Patient : No Family Medical History - Family History Mother Family History: No Known Living Status: Hx Family Asthma: No Hx Family Hypertension: Yes Hx Family Stroke: Yes Hx Cardiac Disease: Yes Hx Family Diabetes: Yes Hx Family Cancer: No Hx Family;Other: migraines mom Father Living Status: Hx Family Asthma: No Hx Family Congestive Heart Failure: Yes Hx Family Hypertension: Yes Hx Family Stroke: Yes Hx Cardiac Disease: Yes Hx Family Diabetes: Yes Hx Family Cancer: No Physical Exam - Physical Exam General Appearance: Alert Respiratory: chest non-tender, lungs clear, normal breath sounds, no respiratory distress, no accessory muscle use Cardiovascular/Chest: normal peripheral pulses, regular rate, rhythm, no edema Gastrointestinal/Abdominal: normal bowel sounds, non tender, soft, no organomegaly Neurologic: alert, other - Non-verbal at this time (similar to last ER presentation) Skin Exam: normal color, warm/dry Progress - Progress Progress: 08/17/20 13:50 EXAM DESCRIPTION: Chest,1 View x-ray CLINICAL HISTORY: 75 years Female, Low BP COMPARISON: 08/11/2020 IMPRESSION: The heart is enlarged, without failure. Atherosclerosis in the thoracic aorta. There is no airspace consolidation, pleural effusion, or pneumothorax. No acute osseous abnormality. Electronically signed by: Joey Gonzalez MD 08/17/2020 1:28 PM CDT 08/17/20 14:14 08/17/20 13:15 EKG STAT Laboratory Results WBC 8.1 K/mm3 (4.8-10.8) 08/17/20 13:32 RBC 4.25 M/mm3 (4.20-5.40) 08/17/20 13:32 Hgb 12.0 gm/dL (12.0-16.0) 08/17/20 13:32 Hct 37.0 % (36.0-47.0) 08/17/20 13:32 MCV 87.2 fl (81.0-99.0) 08/17/20 13:32 MCH 28.3 pg (27.0-31.0) 08/17/20 13:32 MCHC 32.4 g/dL (33.0-37.0) L 08/17/20 13:32 RDW 15.3 % (11.5-14.5) H 08/17/20 13:32 Plt Count 171 K/mm3 (130-400) 08/17/20 13:32 MPV 9.2 fl (7.40-10.4) 08/17/20 13:32 Absolute Neuts (auto) 4.60 K/uL (1.8-6.8) 08/17/20 13:32 Absolute Lymphs (auto) 2.60 K/uL (1.0-3.4) 08/17/20 13:32 Absolute Monos (auto) 0.50 K/uL (0.2-0.8) 08/17/20 13:32 Absolute Eos (auto) 0.30 K/uL (0.0-0.4) 08/17/20 13:32 Absolute Basos (auto) 0.10 K/uL (0.0-0.1) 08/17/20 13:32 Neutrophils % 57.0 % (42.0-78.0) 08/17/20 13:32 Lymphocytes % 31.8 % (20.0-50.0) 08/17/20 13:32 Monocytes % 6.3 % (2.0-9.0) 08/17/20 13:32 Eosinophils % 3.5 % (1.0-5.0) 08/17/20 13:32 Basophils % 1.4 % (0.0-2.0) 08/17/20 13:32 Sodium 138 mmol/L (135-145) 08/17/20 13:32 Potassium 3.9 mmol/L (3.6-5.0) 08/17/20 13:32 Chloride 101 mmol/L (101-111) 08/17/20 13:32 Carbon Dioxide 25 mmol/L (21-31) 08/17/20 13:32 Anion Gap 15.9 (12-18) 08/17/20 13:32 BUN 11 mg/dL (7-18) 08/17/20 13:32 Creatinine 0.58 mg/dL (0.6-1.3) L 08/17/20 13:32 BUN/Creatinine Ratio 19.0 (10-20) 08/17/20 13:32 Random Glucose 205 mg/dL (70-105) H 08/17/20 13:32 Serum Osmolality 281.0 mOsm/L (275-295) 08/17/20 13:32 Lactic Acid 1.8 mmol/L (0.5-2.2) 08/17/20 13:32 Calcium 8.4 mg/dL (8.4-10.2) 08/17/20 13:32 Total Bilirubin 0.7 mg/dL (0.2-1.0) 08/17/20 13:32 AST 23 IU/L (10-42) 08/17/20 13:32 ALT 21 IU/L (10-60) 08/17/20 13:32 Alkaline Phosphatase 86 IU/L (42-121) 08/17/20 13:32 Troponin I < 0.02 ng/mL (0.01-0.05) 08/17/20 13:32 Serum Total Protein 6.2 gm/dL (6.4-8.2) L 08/17/20 13:32 Albumin 3.0 g/dl (3.2-5.5) L 08/17/20 13:32 Globulin 3.2 gm/dL (2.3-3.5) 08/17/20 13:32 Albumin/Globulin Ratio 0.9 (1.1-1.9) L 08/17/20 13:32 BP has been umremarkable throughout ER stay. Other vitals unremarkable. Workup unremarkable. No suggestion of sepsis. Pt's mental status appears chronic and likely related to dementia + underlying UTI (being tx). No clear indication for admission. - EKG/XRAY/CT EKG: Sinus - Rate 61 Comments: Nl intervals, nl axis, no ST elevations, no Q waves Departure - Departure Clinical Impression: Dementia, Generalized weakness Time of Disposition: 14:18 Disposition: Discharge to SNF Condition: Fair Departure Forms: ED Discharge - Pt. Copy, Patient Portal Self Enrollment Instructions: DI for High Blood Pressure Diet: resume usual diet Activity: as per physical therapy Referrals: Ronald Holloway III, MD [Primary Care Provider] - 1-2 Weeks Home Medications: Ambulatory Orders Aspirin [Aspirin EC Low Dose] 81 mg PO DAILY #30 tab 09/04/17 Allopurinol 300 mg PO DAILY 10/13/17 Atorvastatin Calcium [Lipitor] 40 mg PO DAILY 10/13/17 Cyanocobalamin [Vitamin B-12] 1,000 mcg PO DAILY 10/13/17 DULoxetine HCL [Cymbalta] 30 mg PO DAILY 10/13/17 Furosemide [Lasix] 20 mg PO DAILY 10/13/17 Gabapentin 300 mg PO TID 10/13/17 Insulin Lispro [Humalog] 100 unit SC ACHS 10/13/17 Isosorbide Mononitrate [Isosorbide Mononitrate ER] 30 mg PO DAILY 10/13/17 Levothyroxine Sodium [Synthroid] 100 mcg PO QAM 10/13/17 Meclizine HCl 25 mg PO Q6HR PRN 10/13/17 Metformin HCl [Metformin Hydrochloride] 500 mg PO BID 10/13/17 Metoprolol Tartrate 25 mg PO BID 10/13/17 Potassium Chloride [Potassium Chloride ER] 10 meq PO DAILY 10/13/17 Apixaban [Eliquis] 5 mg PO BID #60 tab 05/19/20 Acetaminophen W/ Codeine [Tylenol W/ CODEINE #3] 2 tab PO Q6H PRN 08/11/20 Acetaminophen [Acetaminophen Extra Stren] 1,000 mg PO Q6H PRN 08/11/20 Acetaminophen [Tylenol] 650 mg PO Q6H PRN 08/11/20 Ascorbic Acid [Vitamin C] 1,000 mg PO DAILY 08/11/20 Cetirizine HCl [Allergy Relief] 10 mg PO DAILY 08/11/20 Cholecalciferol [Vitamin D3] 1,000 unit PO DAILY 08/11/20 Fluticasone Propionate (Nasal) [Fluticasone Propionate Na] 50 mcg NA Q12H 08/11/20 Guaifenesin 800 mg PO Q8H PRN 08/11/20 Insulin Glargine [Basaglar Kwikpen] 15 unit SC DAILY 08/11/20 Insulin Lispro [Humalog Kwikpen] 2 unit SC AC 08/11/20 Lactobacillus [Acidophilus] 1 cap PO BID 08/11/20 Memantine HCl [Namenda Xr] 28 mg PO DAILY 08/11/20 Pantoprazole Sodium 40 mg PO DAILY 08/11/20 Zinc 50 mg PO DAILY 08/11/20 Ertapenem [INVanz] 1 gm IM DAILY 5 Days #5 vial 08/13/20
[2020-08-17 13:08] VITALS: TEMP 97.2
--- NOTE | 2020-08-17 13:30 | RAD ---
EXAM DESCRIPTION: Chest,1 View x-ray CLINICAL HISTORY: 75 years Female, Low BP COMPARISON: 08/11/2020 IMPRESSION: The heart is enlarged, without failure. Atherosclerosis in the thoracic aorta. There is no airspace consolidation, pleural effusion, or pneumothorax. No acute osseous abnormality. Electronically signed by: Joey Gonzalez MD 08/17/2020 1:28 PM CDT . [facility]
[2020-08-17 15:43] VITALS: BP 139/74; O2SAT 96
== END 2020-08-17 15:35 ==
LOC: ER 12:51
DX: F03.90 Unspecified dementia, unspecified severity, without behavioral disturbance, psychotic disturbance, mood disturbance, and anxiety (principal); R53.1 Weakness; R41.82 Altered mental status, unspecified; N39.0 Urinary tract infection, site not specified; I51.9 Heart disease, unspecified; I10 Essential (primary) hypertension; E07.9 Disorder of thyroid, unspecified; E11.9 Type 2 diabetes mellitus without complications; Z86.73 Personal history of transient ischemic attack (TIA), and cerebral infarction without residual deficits; Z79.899 Other long term (current) drug therapy; Z79.4 Long term (current) use of insulin; Z79.82 Long term (current) use of aspirin; Z91.041 Radiographic dye allergy status; Z88.1 Allergy status to other antibiotic agents; Z88.2 Allergy status to sulfonamides